=== PATIENT | female | born 1955 | race Caucasian/White ===

== ENCOUNTER → 2018-03-11 09:35 | Outpatient (CLI) | payer BC, SELFPAY ==
[2018-03-11 10:16] LABS: ALB/GLOB Ratio 1.2 RATIO (0.9-2.4); AST(SGOT) 21 U/L (15-37); Alanine Aminotransfer ALT/SGPT 32 U/L (13-56); Albumin, Serum 3.8 g/dL (3.2-5.0); Alkaline Phosphatase 90 U/L (45-117); Anion Gap 8 (5-15); BUN 15 mg/dL (7-18); BUN/Creat Ratio 21.8 RATIO (10-20); Chloride 104 mmol/L (98-107); Cholesterol 164 mg/dL (200); Creatinine, Serum 0.69 mg/dL (0.55-1.02); EST Glomerular Filtration Rate 92 mL/min (>60); Est Glom Filt Rate - Afr Amer 111 mL/min (>60); Globulin 3.1 g/dL (2.2-4.2); Glucose 73 mg/dL (74-106); High Density Lipoprotein 78 mg/dL; Potassium 4.2 mmol/L (3.5-5.1); Protein, Total 6.9 g/dL (6.4-8.2); Sodium Level 141 mmol/L (136-145); Triglycerides 71 mg/dL; Very Low Density Lipoprotein 14 mg/dL (5-40)
== END ==
PROVIDERS: Family Provider Family Medicine; PCP Family Medicine; Referring Provider Family Medicine; Visit Provider Family Medicine
DX: E78.5 Hyperlipidemia, unspecified (principal)
CPT/HCPCS: 80053; 80061

== ENCOUNTER → 2019-02-18 11:09 | Outpatient (CLI) | payer BC, SELFPAY ==
[2019-02-18 10:36] VITALS: BMI 33.0
[2019-02-18 11:18] LABS: Mucous, Urine 0 SEEN /hpf (<or=2+); Squamous Epithelial Cells - UA 0 SEEN /hpf (5-10)
[2019-02-18 12:46] LABS: Color, Urine Yellow (Yellow); Glucose, Dipstick Normal (Normal); Ketone-Dipstick Negative (Negative); Leukocyte Esterase-Dipstick 500 /ul (Negative); Nitrite-Dipstick Negative (Negative); Occult Blood-Urine 10 /ul (Negative); Protein-Dipstick Negative (Negative); Specific Gravity, Urine 1.015 (1.002-1.030); Urine Bilirubin Dipstick Negative (Negative); Urine Clarity Cloudy (Clear); Urine Urobilinogen 1 mg/dl (Normal)
[2019-02-18 13:08] LABS: Bacteria 4+ /hpf (None Seen); Red Blood Cells-Urine 0-5 SEEN /hpf (0-5); White Blood Cells >100 SEEN /hpf (0-5)
== END ==
PROVIDERS: Family Provider Family Medicine; PCP Family Medicine; Visit Provider Nurse Practitioner Family
DX: R30.0 Dysuria (principal)
CPT/HCPCS: 81001; 87086

== ENCOUNTER → 2019-10-15 08:28 | Outpatient (CLI) | payer BC, SELFPAY ==
[2019-07-27 16:27] VITALS: BMI 33.3
[2019-10-15 08:51] LABS: Absolute Lymphocyte Count 1.63 X10^3/uL (0.83-4.51); Absolute Neutrophil Count 3.4 X10^3/uL (2.0-7.7); Basophil# 0.04 X10^3/uL; Basophil% 0.7 % (0-1); Eosinophil# 0.24 X10^3/uL; Eosinophils% 4.2 % (0-5); Hematocrit 39.9 % (37-47); Hemoglobin 12.8 g/dL (12.0-15.0); Lymphocyte # 1.63 X10^3/ul (4.0); Lymphocyte % 28.2 % (19-41); Mean Corp Hgb Conc 32.1 g/dL (32-36); Mean Corpuscular Volume 90.5 fL (81-99); Mean Platelet Vol. 9.6 fl (6.2-12.0); Monocyte# 0.47 X10^3/uL; Monocyte% 8.1 % (0-10); NRBC Flagged by Analyzer 0 % (0-5); Neutrophil # 3.38 X10^3/uL (2.7-7.7); Neutrophil % 58.6 % (47-70); Platelet Count 271 K/mm3 (150-450); RBC Distribution Width SD 46.5 fl (35.1-43.9); Red Blood Count 4.41 M/mm3 (4.2-5.4); White Blood Count 5.8 K/mm3 (4.4-11.0)
--- NOTE | 2019-10-15 08:55 | EKG12_ITS ---
Test Reason : PRE OP Blood Pressure : / mmHG Vent. Rate : 074 BPM Atrial Rate : 074 BPM P-R Int : 160 ms QRS Dur : 078 ms QT Int : 370 ms P-R-T Axes : 029 -13 000 degrees QTc Int : 410 ms Normal sinus rhythm Normal ECG Confirmed by ARSENIO ALFARO, IRINA ([id number]), features editor ALESSIA MURRAY ([id number]) on 10/18/2019 2:38:52 PM Referred By: Maurice Salinas Confirmed By:IRINA CESAR MD
[2019-10-15 09:03] LABS: Prothrombin Time (Protime)PT. 12.7 SECONDS (11.7-14.9)
--- NOTE | 2019-10-15 09:06 | RAD_ITS ---
STUDY: X-RAY CHEST REASON FOR EXAM: Female, 64 years old. PRE-OPERATIVE -- having knee replacement October 31 -- no chest complaints TECHNIQUE: PA and lateral views of the chest. COMPARISON: None. FINDINGS: The lungs are clear and expanded. There is no demonstrated pleural abnormality. Normal size heart. Normal mediastinum and raghav. Normal visualized pulmonary arteries. There is atherosclerotic calcification of the aortic arch with tortuosity. There are diffuse degenerative changes of the visualized thoracic spine. Normal visualized ribs, clavicles, and shoulders. There are surgical clips of left upper abdomen. RAD/Chest PA and Lateral IMPRESSION: No airspace consolidation or pleural effusion. Electronically Signed: Paul Gamboa MD ([facility]) at 14:29 EDT , Service support ,
[2019-10-15 09:09] LABS: ALB/GLOB Ratio 1.2 RATIO (0.9-2.4); AST(SGOT) 60 U/L (15-37); Alanine Aminotransfer ALT/SGPT 85 U/L (13-56); Albumin, Serum 3.5 g/dL (3.2-5.0); Alkaline Phosphatase 129 U/L (45-117); Anion Gap 4 (5-15); BUN 13 mg/dL (7-18); BUN/Creat Ratio 20.3 RATIO (10-20); Calcium,Total 8.8 mg/dL (8.5-10.1); Chloride 105 mmol/L (98-107); Creatinine, Serum 0.64 mg/dL (0.55-1.02); EST Glomerular Filtration Rate 99 mL/min (>60); Est Glom Filt Rate - Afr Amer 120 mL/min (>60); Glucose 84 mg/dL (74-106); Potassium 3.7 mmol/L (3.5-5.1); Protein, Total 6.5 g/dL (6.4-8.2); Sodium Level 139 mmol/L (136-145)
== END ==
PROVIDERS: PCP Family Medicine; Referring Provider Family Medicine; Visit Provider Family Medicine
DX: Z01.818 Encounter for other preprocedural examination (principal); I10 Essential (primary) hypertension; Z87.11 Personal history of peptic ulcer disease
CPT/HCPCS: 36415; 71046; 80053; 85025; 85610; 93005

== ENCOUNTER 2019-10-21 06:16 | Inpatient (IN) | payer BC, SELFPAY ==
[2019-07-27 16:27] VITALS: BMI 33.3
[2019-10-21] VITALS (15 sets, daily range): BP systolic 129–169; BP diastolic 71–98; PULSE 94–119; RESP 15–20; TEMP 36.5–37.2; O2SAT 96–99; BMI 29.2; BMI 28.4; BMI 29.3
--- NOTE | 2019-10-21 06:43 | EKG12_ITS ---
Test Reason : Blood Pressure : / mmHG Vent. Rate : 101 BPM Atrial Rate : 101 BPM P-R Int : 172 ms QRS Dur : 072 ms QT Int : 344 ms P-R-T Axes : 049 016 021 degrees QTc Int : 446 ms Sinus tachycardia Otherwise normal ECG Confirmed by ESTELLE AYERS ([id number]), video news editor ALESSIA MURRAY ([id number]) on 10/24/2019 11:13:36 AM Referred By: EM Confirmed By:ESTELLE AYERS
--- NOTE | 2019-10-21 06:45 | ED.VIS.GEN ---
History of Present Illness Chief Complaint: GI Bleed Informant: Patient Narrative: Patient stated that she got up this morning to use the restroom and had a bowel movement. She stated her stool was darker than normal this morning. She had bright red blood in the bowl and on the toilet paper. She did not have any pain with her bowel movement. She is not having an abdominal pain. No nausea or vomiting. She has a history of a bleeding stomach ulcer in the remote past. However at that time she was having hematemesis. She is not having that now. Her last colonoscopy was 12 years ago. She did home test in the last 5 years for bleeding and was negative. Patient has a history of gastric bypass surgery. She also has a history of a bleeding blood vessel in her abdomen that was cauterized. She saw Dr. Burgess for this. Patient had 1 bloody bowel movement today. She does not feel the urge to defecate currently. Not take iron. The patient also stated that she went to the bathroom in the middle the night and while she was walking back to her bed she had an episode of syncope. She woke up feeling next to her bed with her hands on the bed. She was able to get up in bed and finished her night of rest. She did not injure her head. She denied any chest pain or shortness of breath or other symptoms. She recently stated that she is going to have knee surgery and had outpatient labs that showed elevation in her liver function test and her family doctor is watching these. - Past Medical History (1) Acute blood loss anemia Status: Acute (2) History of basal cell cancer Status: Acute (3) History of pancreatitis Status: Acute (4) History of pneumonia Status: Acute (5) Severe bleeding ulcer of esophagus, stomach or duodenum Status: Acute (6) AAA (abdominal aortic aneurysm) Status: Chronic (7) Bariatric surgery status Status: Chronic (8) GERD (gastroesophageal reflux disease) Status: Chronic (9) Heart murmur Status: Chronic (10) History of bleeding ulcers Status: Chronic (11) Hyperlipemia Status: Chronic (12) Hypertension Status: Chronic (13) Neck pain, chronic Status: Chronic (14) Osteoarthritis Status: Chronic (15) Osteopenia Status: Chronic Past Medical History - Allergies and Home Meds Allergies/Adverse Reactions: Allergies Penicillins [PCN] Allergy (Verified 03/04/20 15:58) Unknown Sulfa (Sulfonamide Antibiotics) Allergy (Verified 07/27/19 15:58) Unknown erythromycin base [Erythromycin Base] Adverse Reaction (Verified 07/27/19 15:58) Unknown rosiglitazone maleate [From Avandia] Adverse Reaction (Verified 07/27/19 15:58) Swelling Primary Care Physician: Maurice Salinas DO [Primary Care Provider] - Prior records reviewed: Yes Past Medical History: - - See problem list Surgical History: - - Gastric bypass surgery history of partial mesh removed with for chronic draining woundVentral hernia repair with mesh chronic draining wounds Lives: With Family Smoking Status: Never smoker Alcohol: None Drugs: None - Family History Maternal Family History: Family History (Last Reviewed 07/27/19 @ 16:[address] Maurice Salinas DO) Mother Hypertension Cancer Hyperlipemia Father Heart disease Hyperlipemia Hypertension Grandfather Hypertension Hyperlipemia Grandmother Hypertension Hyperlipemia Family History: Reports: No pertinent history Review of Systems General: Denies: Chills, Fever, Sweats Eyes: Denies: Visual changes - bilaterally, Diplopia ENT: Denies: Rhinorrhea, Sore throat Cardiovascular: Denies: Chest pain, Palpitations Respiratory: Denies: Dyspnea, Cough, Dyspnea on exertion Gastrointestinal: Reports: Hematochezia. Denies: Abdominal pain, Nausea, Vomiting, Diarrhea, Melena Genitourinary: Denies: Dysuria, Hematuria, Frequency Musculoskeletal: Denies: Back pain, Extremity Pain Skin: Denies: Rash, Wounds Neurological: Denies: Headache, Weakness, Numbness Physical Exam Vital Signs/Narrative: Vital Signs Temp Pulse Resp BP Pulse Ox 10/21/19 06:17 98.9 F 112 H 16 136/90 H 99 General: Well nourished, Well developed, No Acute Distress Head: Normocephalic, Atraumatic Eyes: Perrl, EOMI ENT: Moist mucous membranes, No rhinorrhea Neck: Supple, Nontender Cardiovascular: Regular rhythm, No murmurs, Tachycardia Respiratory: No distress, CTA bilaterally, Chest nontender Abdomen: Soft, Nontender, Nondistended, Normal bowel sounds Rectal: Nontender, - - Gross positive mild blood without hemorrhoid. Negative for: Tenderness Back: Nontender, Normal Inspection Extremities: Nontender, No edema Skin: Normal color, No rash Neurological: Alert, Oriented x3, Cranial nerves II-XII grossly intact, Normal Strength, Normal Sensation Psychological: Normal affect, Normal Mood Diagnostic/Tx/Re-eval - Medical Decision Making Patient given IV fluids and lab work obtained. She is monitored in the department. EKG as well as CT abdomen pelvis obtained. Patient did have one melanotic stool that was liquid and soft upon arrival. Other evaluation will be signed out to the oncoming physician Dr. Pablo. Patient also given IV Protonix ED Disposition - Plan for ED Patient: Referrals: Maurice Salinas DO [Primary Care Provider] -
--- NOTE | 2019-10-21 06:49 | CT_ITS ---
STUDY: CT ABDOMEN AND PELVIS WITHOUT CONTRAST REASON FOR EXAM: Female, 64 years old. weakness, syncope, bloody+ stool. prior chinmay,appy,gastric by-pass RADIATION DOSAGE (If Supplied By Facility): CTDIvol = ( 7.21 ) mGy, DLP = ( 318.76 ) mGycm TECHNIQUE: Transaxial images were obtained from the dome of the diaphragm to the symphysis pubis without oral contrast, and without intravenous contrast. Sagittal and coronal images were reconstructed. Individualized dose optimization techniques were used for this CT. COMPARISON: None. FINDINGS: The visualized lung bases are unremarkable. The visualized portions of the heart are within normal limits. Normal liver. The gallbladder surgically absent. Normal spleen. Normal pancreas. Normal bilateral adrenal glands. Normal right kidney. Small calcifications of the inferior left kidney measuring up to 5 mm. No hydronephrosis. Operative changes of the stomach and small bowel compatible with gastric bypass surgery. No dilated loops of small bowel or obvious bowel wall thickening. There is fecal residue in the colon including the rectal vault. No colon wall thickening. No pericolonic stranding. There are surgical clips in the region of the appendix consistent with a prior appendectomy. There is diffuse atherosclerotic calcification of the abdominal aorta, without a demonstrated aneurysm. Normal inferior vena cava. Normal retroperitoneum. Normal urinary bladder. Normal abdominal wall. Multilevel facet arthropathy and spondylosis of the thoracolumbar spine. CT/Abdomen/Pelvis without Cont IMPRESSION: 1. Left nephrolithiasis without hydronephrosis. Electronically Signed: Paul Gamboa MD ([facility]) at 8:03 EDT , Service support ,
[2019-10-21 07:04] LABS: Absolute Lymphocyte Count 1.63 X10^3/uL (0.83-4.51); Absolute Neutrophil Count 5.1 X10^3/uL (2.0-7.7); Basophil# 0.03 X10^3/uL; Basophil% 0.4 % (0-1); Eosinophil# 0.03 X10^3/uL; Eosinophils% 0.4 % (0-5); Hematocrit 29.8 % (37-47); Hemoglobin 9.7 g/dL (12.0-15.0); Lymphocyte # 1.63 X10^3/ul (4.0); Lymphocyte % 21.8 % (19-41); Mean Corp Hgb Conc 32.6 g/dL (32-36); Mean Platelet Vol. 10.3 fl (6.2-12.0); Monocyte# 0.63 X10^3/uL; Monocyte% 8.4 % (0-10); NRBC Flagged by Analyzer 0 % (0-5); Neutrophil # 5.12 X10^3/uL (2.7-7.7); Neutrophil % 68.3 % (47-70); Platelet Count 263 K/mm3 (150-450); RBC Distribution Width CV 13.7 % (11.6-14.6); RBC Distribution Width SD 44.8 fl (35.1-43.9); Red Blood Count 3.35 M/mm3 (4.2-5.4); White Blood Count 7.5 K/mm3 (4.4-11.0)
[2019-10-21] MEDS: 0.9% Normal Saline 1,000 ML 1000 ML IV (07:15)
[2019-10-21 07:34] LABS: ALB/GLOB Ratio 1.2 RATIO (0.9-2.4); AST(SGOT) 21 U/L (15-37); Alanine Aminotransfer ALT/SGPT 52 U/L (13-56); Albumin, Serum 3.2 g/dL (3.2-5.0); Alkaline Phosphatase 82 U/L (45-117); Anion Gap 4 (5-15); BUN 40 mg/dL (7-18); BUN/Creat Ratio 57.9 RATIO (10-20); Calcium,Total 8.4 mg/dL (8.5-10.1); Chloride 106 mmol/L (98-107); Creatinine, Serum 0.69 mg/dL (0.55-1.02); EST Glomerular Filtration Rate 91 mL/min (>60); Est Glom Filt Rate - Afr Amer 110 mL/min (>60); Estimated Creatinine Clearance 65.15 ml/min; Globulin 2.7 g/dL (2.2-4.2); Glucose 145 mg/dL (74-106); Protein, Total 5.9 g/dL (6.4-8.2); Sodium Level 139 mmol/L (136-145)
[2019-10-21 08:17] LABS: International Normalized Ratio 1.1; Partial Thromboplast Time 24.3 Seconds (24.1-36.2); Prothrombin Time (Protime)PT. 13.4 SECONDS (11.7-14.9)
--- NOTE | 2019-10-21 10:58 | PCM.HP.STD ---
Problem List (1) Neck pain, chronic Status: Chronic (2) History of pancreatitis Status: Chronic (3) Heart murmur Status: Chronic (4) Hyperlipemia Status: Chronic (5) Hypertension Status: Chronic (6) History of pneumonia Status: Chronic (7) History of basal cell cancer Status: Chronic (8) Osteopenia Status: Chronic (9) Osteoarthritis Status: Chronic (10) Severe bleeding ulcer of esophagus, stomach or duodenum Status: Acute (11) Acute blood loss anemia Status: Acute (12) History of bleeding ulcers Status: Chronic (13) Bariatric surgery status Status: Chronic (14) GERD (gastroesophageal reflux disease) Status: Chronic (15) AAA (abdominal aortic aneurysm) Status: Chronic History of Present Illness Date of Admission: 10/21/19 Chief Complaint: melena The patient is a 64 year old F awoke with AM went to the bathroom, when she went back she went out. She awoke on her knees on the floor and arms on the bed. Afterwards, she went back to the bathroom and had melena. She had a total of 5 bouts of melena with streaks of blood. No hematemesis. Similar to when she had a bleeding ulcer before, but no hematemesis this time. She feels dizzy when she stands up, but currently feels ok. No abdominal pain. Dr. Merritt of general surgery was contacted in the ED and will see the patient in consultation. [] Past Medical History Past Medical History (Chronic Problems): Chronic Problems (Last Reviewed 07/27/19 @ 16:[address] Maurice Salinas DO) Neck pain, chronic (Chronic) History of pancreatitis (Chronic) Heart murmur (Chronic) Hyperlipemia (Chronic) Hypertension (Chronic) History of pneumonia (Chronic) History of basal cell cancer (Chronic) Osteopenia (Chronic) Osteoarthritis (Chronic) History of bleeding ulcers (Chronic) Bariatric surgery status (Chronic) GERD (gastroesophageal reflux disease) (Chronic) AAA (abdominal aortic aneurysm) (Chronic) Medical History: Medical History (Last Reviewed 10/21/19 @ 11:[address] Alex Junior DO) History of pancreatitis (Chronic) Z87.19 Heart murmur (Chronic) R01.1 Hyperlipemia (Chronic) E78.5 Hypertension (Chronic) I10 History of pneumonia (Chronic) Z87.01 History of basal cell cancer (Chronic) Z85.828 Osteopenia (Chronic) M85.80 Osteoarthritis (Chronic) M19.90 Allergies Penicillins [PCN] Allergy (Verified 07/27/19 15:58) Unknown Sulfa (Sulfonamide Antibiotics) Allergy (Verified 07/27/19 15:58) Unknown erythromycin base [Erythromycin Base] Adverse Reaction (Verified 07/27/19 15:58) Unknown rosiglitazone maleate [From Avandia] Adverse Reaction (Verified 07/27/19 15:58) Swelling Home Medications: Ambulatory Orders Medication Instructions Recorded citalopram 40 mg tablet See Rx Instructions .ROUTE 01/25/19 .COMPLEX #90 tablet bupropion HCl 150 mg 24 hr tablet, 150 mg PO QHS #90 tab 07/27/19 extended release simvastatin 10 mg tablet 10 mg PO QHS #90 tab 07/27/19 hydrocodone 5 mg-acetaminophen 325 1 tab PO Q6H PRN #90 tab 09/08/19 mg tablet zolpidem 12.5 mg tablet,extended 12.5 mg PO QHS PRN PRN #30 tab 10/05/19 release,multiphase Hydrocortisone 1 applic TOPICAL QHS PRN 10/21/19 Surgical History: Surgical History (Last Reviewed 10/21/19 @ 11:[address] Alex Junior DO) History of appendectomy Z90.49 History of bilateral knee replacement Z96.653 History of cholecystectomy Z90.49 History of gastric bypass Z98.84 History of intestinal surgery Z98.890 Surgical History: - - Gastric bypass surgery history of partial mesh removed with for chronic draining woundVentral hernia repair with mesh chronic draining wounds Psychiatric History: Anxiety Lives: With Family Smoking Status: Never smoker Alcohol: None Drugs: None - *Family History Maternal Family History: Family History (Last Reviewed 10/21/19 @ 11:[address] Alex Junior DO) Mother Hypertension Cancer Hyperlipemia Father Heart disease Hyperlipemia Hypertension Grandfather Hypertension Hyperlipemia Grandmother Hypertension Hyperlipemia History Items: No pertinent history Review of Systems Constitutional: Reports: Weakness. Denies: Anorexia, Fever, Night Sweats Eyes: Denies: Blurred vision, Double vision HEENT: Denies: Head Aches, Sinus Congestion, Sinus Drainage Cardiovascular: Denies: Chest Pain, Palpitations Respiratory: Denies: Cough, Shortness of breath at rest, Sputum production Gastrointestinal: Reports: Melena. Denies: Abdominal Pain, Hematochezia, Nausea, Vomiting Genitourinary: Denies: Dysuria Musculoskeletal: Denies: Joint Pain, Joint Tenderness Skin: Denies: Dryness, Jaundice Neurological: Denies: Numbness, Tingling, Focal weakness Hematologic/ Lymphatic: Denies: Easy Bruising, Easy Bleeding, Hx of blood clot Comment: All review of systems were negative except as mentioned above in the history of present illness and the other review of systems. VTE Information - Inpt Only VTE Present on Admission: No VTE Mechan Device Prophylaxis: SCD's VTE Pharm Prophylaxis ordered?: No Reason prophylaxis not ordered:: Medical Contraindication - Physical Exam Vitals/I&O's: Vital Signs Temp Pulse Resp BP Pulse Ox 36.6 C 105 H 20 H 136/98 H 99 10/21/19 10:09 10/21/19 10:33 10/21/19 10:09 10/21/19 10:09 10/21/19 10:09 Oxygen Delivery Method Room Air Weight: 72.6 kg Body Mass Index (BMI) 29.2 Intake and Output for Last 24 Hours 10/19/19 10/20/19 10/21/19 23:59 23:59 23:59 Intake Total 1035 / 1035 Balance 1035 / 1035 General: Alert, Cooperative, No apparent distress HEENT: Atraumatic, Normocephalic, - - no icterus Oral: Moist Mucosa, No Gingival or Mucosal Lesions/ Ulcerations Neck: No Nodes, Thyroid Normal Size and Texture Lungs: Clear to auscultation, Normal air movement, No rhonchi, No wheeze, No rales Cardiovascular: Regular rate, Regular Rhythm, Normal S1, Normal S2, No murmurs Abdomen: Bowel Sounds Present, Soft, Non Tender, Non-Distended, No Hepato-splenomegaly Extremities: No edema, No Calf Tenderness Skin: No rashes, No breakdown Musculoskeletal: No Tenderness to Palpation of Joints or Extremities, No Muscle Wasting Neurological: Deep Tendon Reflexes 2+/4 and Symmetrical, - - no clonsu Psych/Mental Status: Normal Affect, Appropriate Laboratory Results 10/21/19 06:50: WBC 7.5, RBC 3.35 L, Hgb 9.7 L, Hct 29.8 L, MCV 89.0, MCH 29.0, MCHC 32.6, RDW Std Deviation 44.8 H, RDW Coeff of [place] 13.7, Plt Count 263, MPV 10.3, Immature Gran % (Auto) 0.700, Neut % (Auto) 68.3, Lymph % (Auto) 21.8, [place] % (Auto) 8.4, Eos % (Auto) 0.4, Baso % (Auto) 0.4, Absolute Neuts (auto) 5.1, Absolute Lymphs (auto) 1.63, Nucleated RBC % 0 10/21/19 07:10: Sodium 139, Potassium 4.0, Chloride 106, Carbon Dioxide 29.0, Anion Gap 4 L, BUN 40 H, Creatinine 0.69, Estim Creat Clear Calc 65.15, Est GFR (MDRD) Af Amer 110, Est GFR (MDRD) Non-Af 91, BUN/Creatinine Ratio 57.9 H, Glucose 145 H, Calcium 8.4 L, Total Bilirubin 0.20, AST 21, ALT 52, Alkaline Phosphatase 82, Total Protein 5.9 L, Albumin 3.2, Globulin 2.7, Albumin/Globulin Ratio 1.2 10/21/19 07:10: PT 13.4, INR 1.1, APTT 24.3 10/21/19 07:10: Blood Type O POSITIVE, Antibody Screen NEGATIVE Assessment/Plan All Active Problems (Last Reviewed 07/27/19 @ 16:[address] Maurice Salinas, DO) Severe bleeding ulcer of esophagus, stomach or duodenum (Acute) Acute blood loss anemia (Acute) 1. GI bleed. suspect upper given history of PUD. Takes NSAIDs rarely. Received PPI IV and will continue. General surgery on consult for EGD. 2. Syncope: 2/2 ABLA. IVF. Monitor. 3. ABLA: 2/2 GI bleed. Monitor h/h. No need to transfuse at this time. 4. VTE prophylaxis: SCDs, chemical prophylaxis contraindicated. Inpatient E&M: 46836 Init Hosp L3
[2019-10-21] MEDS: Lactated Ringers 1,000 ML 150 ML IV ×2 (11:12→17:35)
--- NOTE | 2019-10-21 11:45 | NURSING ---
Report called to HARMONY Hedrick in [facility].
--- NOTE | 2019-10-21 12:58 | OP.CCLET_ITS ---
10/21/2019 Maurice Salinas Re : Upper GI endoscopy procedure for Aby Rabago Dear Dr. Salinas This procedure was performed on Monday, October 21, 2019. My impressions and recommendations are as follows: Impressions : - Normal anastomosis. - Non-bleeding gastric ulcer with no stigmata of bleeding. - Normal esophagus. - No specimens collected. Recommendations : - [facility]. - Resume regular diet. - Continue present medications. My findings are described in the full procedure note, which is enclosed. If I can be of further assistance, please feel free to contact me at Doctor phone number(s): , Work: . Sincerely, MD Diamante Perez MD 10/21/2019 12:57:52 PM This report has been signed electronically.
--- NOTE | 2019-10-21 12:58 | OP.EGD_ITS ---
Patient Name: Aby Rabago Procedure Date: 10/21/2019 11:52 AM Date of : 1955 Age: 64 Procedure: Upper GI endoscopy Indications: Iron deficiency anemia Providers: Diamante Merritt MD Medicines: See the Anesthesia note for documentation of the administered medications Patient Profile: Refer to note in patient chart for documentation of history and physical. Complications: No immediate complications. Procedure: Pre-Anesthesia Assessment: - Prior to the procedure, a History and Physical was performed, and patient medications and allergies were reviewed. The patient is competent. The risks and benefits of the procedure and the sedation options and risks were discussed with the patient. All questions were answered and informed consent was obtained. Patient identification and proposed procedure were verified by the physician in the pre-procedure area. Mental Status Examination: alert and oriented. Airway Examination: normal oropharyngeal airway and neck mobility. Respiratory Examination: clear to auscultation. CV Examination: normal. Prophylactic Antibiotics: The patient does not require prophylactic antibiotics. Prior Anticoagulants: The patient has taken no previous anticoagulant or antiplatelet agents. ASA Grade Assessment: II - A patient with mild systemic disease. After reviewing the risks and benefits, the patient was deemed in satisfactory condition to undergo the procedure. The anesthesia plan was to use deep sedation / analgesia. Immediately prior to administration of medications, the patient was re-assessed for adequacy to receive sedatives. The heart rate, respiratory rate, oxygen saturations, blood pressure, adequacy of pulmonary ventilation, and response to care were monitored throughout the procedure. The physical status of the patient was re-assessed after the procedure. After obtaining informed consent, the endoscope was passed under direct vision. Throughout the procedure, the patient's blood pressure, pulse, and oxygen saturations were monitored continuously. The gastroscope was introduced through the mouth, and advanced to the second part of duodenum. The upper GI endoscopy was accomplished without difficulty. The patient tolerated the procedure well. Scope In: 12:44:42 PM Scope Out: 12:47:24 PM Total Procedure Duration Time 0 hours 2 minutes 42 seconds Findings: The anastomosis was normal. One non-bleeding superficial gastric ulcer with no stigmata of bleeding was found at the anastomosis. The lesion was 1 mm in largest dimension. The examined esophagus was normal. Impression: - Normal anastomosis. - Non-bleeding gastric ulcer with no stigmata of bleeding. - Normal esophagus. - No specimens collected. Recommendation: - [facility]. - Resume regular diet. - Continue present medications. Procedure Code(s): --- Professional --- 19069, Esophagogastroduodenoscopy, flexible, transoral; diagnostic, including collection of specimen(s) by brushing or washing, when performed (separate procedure) Diagnosis Code(s): --- Professional --- K25.9, Gastric ulcer, unspecified as acute or chronic, without hemorrhage or perforation D50.9, Iron deficiency anemia, unspecified CPT copyright 2017 [employer] [place] [employer]. All rights reserved. The codes documented in this report are preliminary and upon template reproduction technician review may be revised to meet current compliance requirements. MD Diamante Perez MD 10/21/2019 12:57:52 PM This report has been signed electronically. Number of Addenda: 0 Note Initiated On: 10/21/2019 11:52 AM
[2019-10-21 14:10] LABS: Hematocrit 27.7 % (37-47); Hemoglobin 8.8 g/dL (12.0-15.0)
--- NOTE | 2019-10-21 14:32 | CASEMGMT ---
HARMONY KERN assessment: Face to Face with patient for initial transition planning/care coordination assessment. HARMONY KERN introduced self and role at [facility], pt voices understanding and consents to assessment at this time. Pt is sitting up in chair in no distress at this time. Pt is A/Ox4 at this time and answers all questions appropriately at this time. Care providers, pharmacy, and demographics verified/updated at this time. Presentation: Blood in stool, weakness, syncopal Admitting dx: upper GI bleed PCP: Brad Specialists: Pt states no current specialists. Preferred Pharmacy: [facility] Insurance: [place] Prescription Benefit: [place] Living Will/HPOA: Pt states has LW/HPOA and is aware that they are not on file at [facility] at this time. Pt states that her daughter, Sissy Day, is HPOA. LNOK: Sissy Day, daughter/HPOA; Bryce Dial, daughter Living Arrangements: Pt states lives alone in 1 story condo and states no concerns at home at this time. Pt states that her daughter will be staying with her this weekend once discharged. Pt states is independent with ADL's. Transportation: Pt states drives self and states no transportation concerns at this time. DME/HHC: Pt states has a walker in preparation for knee surgery. Pt states no need for any further DME at this time. Pt states has had HHC in the past but cannot remember name of company and states no hx of SNF in the past. Pt states no concerns with going home at time of discharge. 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 Pt states does not smoke and drinks ETOH occasionally. Pt states no further concerns/needs at this time. CM to follow for any further discharge planning/needs. Advised pt to ask for CM if any further questions/concerns/needs arise, voices understanding. Pt Goal: Home Plan[place] HARMONY KERN
--- NOTE | 2019-10-21 15:09 | PCM.PN.BLA ---
Progress Note EGD done - small marginal ulcer noted near anastomosis, but not actively bleeding, no blood flecks or clots noted, widely patent anastomosis I would recommend colonoscopy, but this can be done as an outpatient. She can be discharged as per hospitalist discretion. I will contact patient on Thursday, to set her up for colonoscopy as on outpatient. STROKE Vital Signs/Narrative: Vital Signs Temp Pulse Resp BP BP Pulse Ox 10/21/19 13:40 97.7 F L 94 15 144/84 H 97 10/21/19 13:11 98.6 F 101 H 18 169/85 H 98 10/21/19 13:05 100 18 150/93 H 98 10/21/19 13:00 100 18 163/75 H 97 10/21/19 12:55 98.6 F 107 H 18 152/76 H 97
[2019-10-21 19:17] LABS: Hematocrit 25.2 % (37-47)
[2019-10-21] MEDS: LORazepam 0.5 MG Tablet PO (19:49)
[2019-10-21] MEDS: Zolpidem Tartrate 5 MG Tablet PO (22:50)
[2019-10-22] VITALS (12 sets, daily range): BP systolic 114–152; BP diastolic 59–86; PULSE 72–97; RESP 13–18; TEMP 36.6–36.9; O2SAT 95–100
[2019-10-22] MEDS: Lactated Ringers 1,000 ML 150 ML IV (00:25)
[2019-10-22 01:14] LABS: Hematocrit 21.7 % (37-47); Hemoglobin 7.1 g/dL (12.0-15.0)
[2019-10-22] MEDS: 0.9% Saline Lock 10 ML Syringe IV (04:20)
[2019-10-22 07:56] LABS: Absolute Lymphocyte Count 2.42 X10^3/uL (0.83-4.51); Basophil# 0.04 X10^3/uL; Basophil% 0.6 % (0-1); Eosinophil# 0.13 X10^3/uL; Eosinophils% 1.8 % (0-5); Hematocrit 32.7 % (37-47); Hemoglobin 10.5 g/dL (12.0-15.0); Lymphocyte # 2.42 X10^3/ul (4.0); Lymphocyte % 33.7 % (19-41); Mean Corp Hgb Conc 32.1 g/dL (32-36); Mean Corpuscular Volume 93.4 fL (81-99); Mean Platelet Vol. 9.9 fl (6.2-12.0); Monocyte# 0.54 X10^3/uL; Monocyte% 7.5 % (0-10); NRBC Flagged by Analyzer 0 % (0-5); Neutrophil # 3.97 X10^3/uL (2.7-7.7); Neutrophil % 55.3 % (47-70); Platelet Count 214 K/mm3 (150-450); RBC Distribution Width CV 14.3 % (11.6-14.6); RBC Distribution Width SD 47.8 fl (35.1-43.9); White Blood Count 7.2 K/mm3 (4.4-11.0)
[2019-10-22 08:13] LABS: Anion Gap 5 (5-15); BUN 12 mg/dL (7-18); BUN/Creat Ratio 18.8 RATIO (10-20); Calcium,Total 8.6 mg/dL (8.5-10.1); Chloride 109 mmol/L (98-107); Creatinine, Serum 0.64 mg/dL (0.55-1.02); EST Glomerular Filtration Rate 100 mL/min (>60); Est Glom Filt Rate - Afr Amer 120 mL/min (>60); Estimated Creatinine Clearance 70.24 ml/min; Glucose 94 mg/dL (74-106); Potassium 3.6 mmol/L (3.5-5.1); Sodium Level 143 mmol/L (136-145)
[2019-10-22 12:09] LABS: Hematocrit 30.7 % (37-47); Hemoglobin 10.2 g/dL (12.0-15.0)
--- NOTE | 2019-10-22 12:53 | PCM.DC ---
You will use the following diet at home:: No restrictions Your food should be the consistency of: Regular Discharge Activity: Return to Normal Activity Call your doctor if you observe: Dizziness, Fainting spells, - - dark tarry stools. blood in stools. Allergies/Adverse Reactions: Allergies Penicillins [PCN] Allergy (Verified 07/27/19 15:58) Unknown Sulfa (Sulfonamide Antibiotics) Allergy (Verified 07/27/19 15:58) Unknown erythromycin base [Erythromycin Base] Adverse Reaction (Verified 07/27/19 15:58) Unknown rosiglitazone maleate [From Avandia] Adverse Reaction (Verified 07/27/19 15:58) Swelling Medications to take at Discharge citalopram 40 mg tablet See Rx Instructions .ROUTE .COMPLEX #90 tablet 01/25/19 bupropion HCl 150 mg 24 hr tablet, extended release 150 mg PO QHS #90 tab 07/27/19 simvastatin 10 mg tablet 10 mg PO QHS #90 tab 07/27/19 hydrocodone 5 mg-acetaminophen 325 mg tablet 1 tab PO Q6H PRN #90 tab 09/08/19 zolpidem 12.5 mg tablet,extended release,multiphase 12.5 mg PO QHS PRN PRN #30 tab 10/05/19 Hydrocortisone 1 applic TOPICAL QHS PRN 10/21/19 Pantoprazole Sodium [Protonix] 40 mg PO BID #60 tab 10/22/19 The following prescriptions were given: Pantoprazole Sodium [Protonix] 40 mg PO BID #60 tab Transmission Status: Pending to [facility]/pharmacy #[id number] Primary Care Physician: Maurice Salinas DO [Primary Care Provider] - Within 2 Weeks Test Results: Test results from this visit will be discussed in further detail at your follow-up appointment, if applicable. Please Follow Up With: Diamante Merritt MD When: 2-4 weeks Proposed Discharge Date: 10/22/19
--- NOTE | 2019-10-22 12:54 | DS.PCM_ITS ---
Discharge Date and Diagnosis Date of Admission: 10/21/19 Date of Discharge: 10/22/19 - Primary Discharge Diagnosis Acute Problems: Upper GI bleed Acute blood loss anemia PUD - Secondary Discharge Diagnosis Chronic Problems: Chronic Problems (Last Reviewed 10/21/19 @ 11:[address] Alxe Junior, DO) Neck pain, chronic (Chronic) History of pancreatitis (Chronic) Heart murmur (Chronic) Hyperlipemia (Chronic) Hypertension (Chronic) History of pneumonia (Chronic) History of basal cell cancer (Chronic) Osteopenia (Chronic) Osteoarthritis (Chronic) History of bleeding ulcers (Chronic) Bariatric surgery status (Chronic) GERD (gastroesophageal reflux disease) (Chronic) AAA (abdominal aortic aneurysm) (Chronic) Hospital Course and Treatment Diamante Merritt, general surgery Operations: None Procedures: EGD Summary of Care Provided: The patient is a 64 year old F presents with melena. Patient had a drop in her hemoglobin of roughly 4g. Patient was seen in consultation by Dr. Merritt who performed the EGD that showed nonbleeding gastric ulcers. Patient was monitored and did require transfusion of 2 units packed red blood cells. Patient's hemoglobin is remained stable and her melena has since resolved. Patient will follow-up with Dr. Merritt as outpatient for eventual colonoscopy. Patient states that she takes NSAIDs sparingly. Patient advised to discontinue those altogether. Patient is to have a orthopedic surgery on October 31. It is my recommendation for VTE prophylaxis that patient not be put on aspirin but rather novel anticoagulant such as apixaban. [] - Physical Exam Vitals/I&O's: Vital Signs Temp Pulse Resp BP Pulse Ox 36.8 C 97 18 127/86 H 98 10/22/19 11:00 10/22/19 11:00 10/22/19 11:00 10/22/19 11:00 10/22/19 11:00 Oxygen Delivery Method Room Air Weight: 70.5 kg Body Mass Index (BMI) 28.4 Intake and Output for Last 24 Hours 10/20/19 10/21/19 10/22/19 23:59 23:59 23:59 Intake Total 2505 / 2505 3322.5 / 3322.5 Output Total 3 / 3 Balance 2502 / 2502 3322.5 / 3322.5 General: Alert, Cooperative, No apparent distress HEENT: Atraumatic, Normocephalic Oral: Moist Mucosa, No Gingival or Mucosal Lesions/ Ulcerations Neck: No Nodes, Thyroid Normal Size and Texture Lungs: Clear to auscultation, Normal air movement, No rhonchi, No wheeze Cardiovascular: Regular rate, Regular Rhythm, Normal S1, Normal S2 Abdomen: Bowel Sounds Present, Soft, Non Tender, Non-Distended, No Hepato- splenomegaly Extremities: No edema, No Calf Tenderness Skin: No rashes, No breakdown Psych/Mental Status: Normal Affect, Appropriate Laboratory Results 10/21/19 07:10: Crossmatch See Detail 10/21/19 14:02: Hgb 8.8 L, Hct 27.7 L 10/21/19 19:05: Hgb 8.0 L, Hct 25.2 L 10/22/19 01:07: Hgb 7.1 L, Hct 21.7 L 10/22/19 07:40: WBC 7.2, RBC 3.50 L, Hgb 10.5 L, Hct 32.7 L, MCV 93.4, MCH 30.0, MCHC 32.1, RDW Std Deviation 47.8 H, RDW Coeff of [place] 14.3, Plt Count 214, MPV 9.9, Immature Gran % (Auto) 1.100 H, Neut % (Auto) 55.3, Lymph % (Auto) 33.7, [place] % (Auto) 7.5, Eos % (Auto) 1.8, Baso % (Auto) 0.6, Absolute Neuts (auto) 4.0, Absolute Lymphs (auto) 2.42, Nucleated RBC % 0 10/22/19 07:40: Sodium 143, Potassium 3.6, Chloride 109 H, Carbon Dioxide 29.0, Anion Gap 5, BUN 12, Creatinine 0.64, Estim Creat Clear Calc 70.24, Est GFR (MDRD) Af Amer 120, Est GFR (MDRD) Non-Af 100, BUN/Creatinine Ratio 18.8, Glucose 94, Calcium 8.6 10/22/19 12:00: Hgb 10.2 L, Hct 30.7 L Current Medications Acetaminophen (Tylenol) 650 mg RECTAL Q4H PRN PRN PRN Reason: Pain Score 1-10/Temp > 100.7 F Dextrose (D50w Syringe) 0 gm IV X1 PRN; Protocol PRN Reason: Hypoglycemia Glucagon () 1 mg IM .X1 PRN PRN Reason: Hypoglycemia Hydrocortisone (Hytone) 1 applic TOPICAL QHS PRN PRN Reason: ITCHING Lactated Ringer's () 1,000 mls @ 150 mls/hr IV .Q6H40M NATHANAEL Last Infusion: 10/22/19 09:20 Dose: 150 mls/hr Documented by: Pantoprazole Sodium 40 mg/ (Sodium Chloride) 110 mls @ 330 mls/hr IV Q12 NATHANAEL Last Infusion: 10/22/19 09:20 Dose: Infused Documented by: Lorazepam (Ativan) 0.5 mg PO Q12H PRN PRN PRN Reason: ANXIETY Last Admin: 10/21/19 19:49 Dose: 0.5 mg Documented by: Nutritional Formula (Lactose Free) (Ensure Enlive) 120 ml PO 4X/DAY NATHANAEL Last Admin: 10/22/19 08:53 Dose: 120 ml Documented by: Ondansetron HCl (Zofran) 4 mg IV Q8H PRN PRN PRN Reason: NAUSEA/VOMITING Sodium Chloride () 10 - 40 ml IV UD PRN PRN Reason: SALINE FLUSH Last Admin: 10/22/19 04:20 Dose: 20 ml Documented by: Zolpidem Tartrate (Ambien (Generic)) 5 mg PO QHS PRN PRN PRN Reason: SLEEP Last Admin: 10/21/19 22:50 Dose: 5 mg Documented by: Discharge Diet: No Restrictions Discharge Activity: Return to Normal Activity Call your doctor if you observe: Dizziness, Fainting spells, - - dark tarry stools. blood in stools. Home Medications: Medications to take at Discharge citalopram 40 mg tablet See Rx Instructions .ROUTE .COMPLEX #90 tablet 01/25/19 bupropion HCl 150 mg 24 hr tablet, extended release 150 mg PO QHS #90 tab 07/27/19 simvastatin 10 mg tablet 10 mg PO QHS #90 tab 07/27/19 hydrocodone 5 mg-acetaminophen 325 mg tablet 1 tab PO Q6H PRN #90 tab 09/08/19 zolpidem 12.5 mg tablet,extended release,multiphase 12.5 mg PO QHS PRN PRN #30 tab 10/05/19 Hydrocortisone 1 applic TOPICAL QHS PRN 10/21/19 Pantoprazole Sodium [Protonix] 40 mg PO BID #60 tab 10/22/19 Following Prescrptions Were Given to Patient: Pantoprazole Sodium [Protonix] 40 mg PO BID #60 tab Transmission Status: Pending to [facility]/pharmacy #[id number] Primary Care Physician: Maurice Salinas DO [Primary Care Provider] - Within 2 Weeks Please Follow Up With: Diamante Merritt MD When: 2-4 weeks Disposition: Home Minutes spent on discharge:: 32 Patient Condition:: Good Medical Necessity - Tobacco Use Smoking Status: Never smoker Meaningful Use Info Meaningful Use Diagnoses (Choose all that apply): None applicable Inpatient E&M: 29388 Disch Hosp
== END 2019-10-22 13:43 | disposition home or self-care (01) | DRG 812 ==
LOC: ED 07:59 → PCU 11:39
PROVIDERS: Surgery; Emergency Provider Emergency Medicine; PCP Family Medicine
PROC: 0DJ08ZZ Inspection of Upper Intestinal Tract, Via Natural or Artificial Opening Endoscopic (ICD-10-PCS; CPT 43235; principal; 2019-10-21 12:25)
DX: D62 Acute posthemorrhagic anemia (principal); D50.9 Iron deficiency anemia, unspecified; N20.0 Calculus of kidney; K25.9 Gastric ulcer, unspecified as acute or chronic, without hemorrhage or perforation; I71.4 Abdominal aortic aneurysm, without rupture; K21.9 Gastro-esophageal reflux disease without esophagitis; R01.1 Cardiac murmur, unspecified; E78.5 Hyperlipidemia, unspecified; I10 Essential (primary) hypertension; M85.80 Other specified disorders of bone density and structure, unspecified site; M19.90 Unspecified osteoarthritis, unspecified site; Z98.84 Bariatric surgery status; Z85.828 Personal history of other malignant neoplasm of skin; Z87.01 Personal history of pneumonia (recurrent); Z82.49 Family history of ischemic heart disease and other diseases of the circulatory system; Z87.11 Personal history of peptic ulcer disease; Z87.19 Personal history of other diseases of the digestive system; Z90.49 Acquired absence of other specified parts of digestive tract; Z96.653 Presence of artificial knee joint, bilateral
CPT/HCPCS: 36415; 74176; 80048; 80053; 85014; 85018; 85025; 85610; 85730; 86850; 86900; 86901; 86920; 93005; 97802; 99285; J7030; J7120; P9016; A4216; J3490

== ENCOUNTER → 2019-10-25 08:50 | Outpatient (CLI) | payer BC, SELFPAY ==
[2019-10-25 08:26] VITALS: BMI 28.4
[2019-10-25 12:20] LABS: Absolute Neutrophil Count 4.4 X10^3/uL (2.0-7.7); Basophil# 0.03 X10^3/uL; Basophil% 0.5 % (0-1); Eosinophil# 0.08 X10^3/uL; Eosinophils% 1.4 % (0-5); Hematocrit 33.5 % (37-47); Hemoglobin 10.8 g/dL (12.0-15.0); Lymphocyte % 16.9 % (19-41); Mean Corp Hgb Conc 32.2 g/dL (32-36); Mean Corpuscular Hgb 30.3 pg (27.0-32.0); Mean Corpuscular Volume 93.8 fL (81-99); Mean Platelet Vol. 10.6 fl (6.2-12.0); Monocyte% 6.8 % (0-10); NRBC Flagged by Analyzer 0 % (0-5); Neutrophil # 4.39 X10^3/uL (2.7-7.7); Neutrophil % 74.1 % (47-70); Platelet Count 295 K/mm3 (150-450); RBC Distribution Width CV 14.8 % (11.6-14.6); RBC Distribution Width SD 49.4 fl (35.1-43.9); Red Blood Count 3.57 M/mm3 (4.2-5.4); White Blood Count 5.9 K/mm3 (4.4-11.0)
[2019-10-25 12:42] LABS: AST(SGOT) 20 U/L (15-37); Alanine Aminotransfer ALT/SGPT 50 U/L (13-56); Albumin, Serum 3.6 g/dL (3.2-5.0); Alkaline Phosphatase 89 U/L (45-117); Bilirubin, Direct 0.17 mg/dL (0.00-0.30); Protein, Total 6.6 g/dL (6.4-8.2)
[2019-10-26 05:07] LABS: HEPATITIS B SURFACE AG Negative (Negative); Hepatitis A AB, Total Negative (Negative); Hepatitis A IgM Antibody Negative (Negative); Hepatitis B Core AB IgM Negative (Negative); Hepatitis B Core Ab Total Negative (Negative); Hepatitis C Ab <0.1 s/co ratio (0.0-0.9)
[2019-10-26 09:40] LABS: Hep B Surface Antibodies Reactive (.)
== END ==
PROVIDERS: PCP Family Medicine; Referring Provider Family Medicine; Visit Provider Family Medicine
DX: R74.8 Abnormal levels of other serum enzymes (principal); D62 Acute posthemorrhagic anemia
CPT/HCPCS: 36415; 80076; 85025; 86704; 86705; 86706; 86708; 86709; 86803; 87340

== ENCOUNTER → 2019-12-10 09:34 | Outpatient (CLI) | payer BC, SELFPAY ==
[2019-10-25 08:26] VITALS: BMI 28.4
[2019-12-10 10:21] LABS: Absolute Lymphocyte Count 1.41 X10^3/uL (0.83-4.51); Absolute Neutrophil Count 5.2 X10^3/uL (2.0-7.7); Basophil# 0.04 X10^3/uL; Basophil% 0.5 % (0-1); Eosinophil# 0.26 X10^3/uL; Eosinophils% 3.5 % (0-5); Hematocrit 37.7 % (37-47); Hemoglobin 11.9 g/dL (12.0-15.0); Lymphocyte # 1.41 X10^3/ul (4.0); Lymphocyte % 18.9 % (19-41); Mean Corp Hgb Conc 31.6 g/dL (32-36); Mean Corpuscular Hgb 28.5 pg (27.0-32.0); Mean Corpuscular Volume 90.2 fL (81-99); Mean Platelet Vol. 9.7 fl (6.2-12.0); Monocyte# 0.55 X10^3/uL; Monocyte% 7.4 % (0-10); NRBC Flagged by Analyzer 0 % (0-5); Neutrophil % 69.4 % (47-70); Platelet Count 303 K/mm3 (150-450); RBC Distribution Width CV 14.6 % (11.6-14.6); RBC Distribution Width SD 47.8 fl (35.1-43.9); Red Blood Count 4.18 M/mm3 (4.2-5.4); White Blood Count 7.5 K/mm3 (4.4-11.0)
== END ==
PROVIDERS: PCP Family Medicine; Referring Provider Family Medicine; Visit Provider Family Medicine
DX: Z87.11 Personal history of peptic ulcer disease (principal)
CPT/HCPCS: 36415; 85025

== ENCOUNTER → 2020-02-03 16:28 | Outpatient (CLI) | payer BC, SELFPAY ==
[2020-01-24 16:37] VITALS: BMI 28.4
--- NOTE | 2020-02-03 16:43 | EKG12_ITS ---
Test Reason : PRE OP Blood Pressure : / mmHG Vent. Rate : 071 BPM Atrial Rate : 071 BPM P-R Int : 160 ms QRS Dur : 078 ms QT Int : 354 ms P-R-T Axes : 045 012 036 degrees QTc Int : 384 ms Sinus rhythm with Premature atrial complexes Otherwise normal ECG Confirmed by MICHAEL ALFARO, MOHAN ([id number]), video editor EMILIA WALTER ([id number]) on 02/08/2020 11:16:32 A M Referred By: NIRMALA HILARIO Confirmed By:RENO RODRIGUEZ MD
--- NOTE | 2020-02-03 16:55 | RAD_ITS ---
STUDY: X-RAY CHEST REASON FOR EXAM: Female, 64 years old. PRE OP FOR KNEE SURGERY TECHNIQUE: PA and lateral COMPARISON: 10/15/2019 FINDINGS: The lungs are clear and expanded. There is no demonstrated pleural abnormality. Normal size heart. Normal mediastinum and raghav. Normal visualized pulmonary arteries. Tortuous aortic arch and descending thoracic aorta. Dorsal spine and shoulders demonstrates degenerative change. Normal visualized ribs, and clavicles Nonspecific bowel distention.. No significant change since prior exam. RAD/Chest PA and Lateral IMPRESSION: No acute cardiopulmonary pathology Electronically Signed: Sushil Forte MD at 22:20 EDT , Service support ,
[2020-02-03 17:09] LABS: Absolute Lymphocyte Count 2.09 X10^3/uL (0.83-4.51); Absolute Neutrophil Count 4.4 X10^3/uL (2.0-7.7); Basophil# 0.03 X10^3/uL; Basophil% 0.4 % (0-1); Hematocrit 40.9 % (37-47); Hemoglobin 12.9 g/dL (12.0-15.0); Lymphocyte # 2.09 X10^3/ul (4.0); Lymphocyte % 28.1 % (19-41); Mean Corp Hgb Conc 31.5 g/dL (32-36); Mean Corpuscular Hgb 27.2 pg (27.0-32.0); Mean Corpuscular Volume 86.3 fL (81-99); Mean Platelet Vol. 10.5 fl (6.2-12.0); Monocyte# 0.56 X10^3/uL; Monocyte% 7.5 % (0-10); NRBC Flagged by Analyzer 0 % (0-5); Neutrophil # 4.44 X10^3/uL (2.7-7.7); Neutrophil % 59.7 % (47-70); Platelet Count 271 K/mm3 (150-450); RBC Distribution Width CV 15.9 % (11.6-14.6); RBC Distribution Width SD 50.6 fl (35.1-43.9); Red Blood Count 4.74 M/mm3 (4.2-5.4); White Blood Count 7.4 K/mm3 (4.4-11.0)
[2020-02-03 17:11] LABS: Prothrombin Time (Protime)PT. 12.7 SECONDS (11.7-14.9)
[2020-02-03 17:13] LABS: Partial Thromboplast Time 28.9 Seconds (24.1-36.2)
[2020-02-03 17:42] LABS: ALB/GLOB Ratio 1.2 RATIO (0.9-2.4); AST(SGOT) 19 U/L (15-37); Alanine Aminotransfer ALT/SGPT 26 U/L (13-56); Albumin, Serum 3.6 g/dL (3.2-5.0); Alkaline Phosphatase 122 U/L (45-117); Anion Gap 6 (5-15); BUN 17 mg/dL (7-18); BUN/Creat Ratio 26.4 RATIO (10-20); Calcium,Total 9.2 mg/dL (8.5-10.1); Chloride 105 mmol/L (98-107); Creatinine, Serum 0.64 mg/dL (0.55-1.02); EST Glomerular Filtration Rate 99 mL/min (>60); Est Glom Filt Rate - Afr Amer 119 mL/min (>60); Globulin 3.1 g/dL (2.2-4.2); Glucose 114 mg/dL (74-106); Potassium 3.8 mmol/L (3.5-5.1); Protein, Total 6.7 g/dL (6.4-8.2); Sodium Level 139 mmol/L (136-145)
[2020-02-03 17:48] LABS: Hemoglobin A1c 5.7 % (3.8-5.6)
== END ==
PROVIDERS: PCP Family Medicine
DX: Z01.812 Encounter for preprocedural laboratory examination (principal)
CPT/HCPCS: 36415; 71046; 80053; 83036; 85025; 85610; 85730; 93005

== ENCOUNTER 2020-05-01 13:00 | Outpatient (RCR) | payer BC, SELFPAY ==
[2020-01-24 16:37] VITALS: BMI 28.4
[2020-02-24 14:12] VITALS: BMI 28.4
--- NOTE | 2020-02-29 14:57 | HP.PTEVAL_ITS ---
Patient's Visit Information ALEKSANDAR GREEN is a 64 year old F referred to Physical Therapy by NIRMALA SOSA with a diagnosis of L total knee revision. Date of Evaluation: 02/29/20 Physical Therapist: Cristóbal Fuentes DPT - Visit Plan Frequency: 3x /Week Duration: 6 Weeks Plan: Start with ROM focus on end range extension and progressing flexion as able. After 2 weeks progress strengthening as tolerated. - Subjective Pt. is here today for her initial evaluation with diagnosis of L knee revision. DOS: 02/27/20. Pt. reports this is a revision from her knee arthroplasty in 2002. Pt. reports from her last surgery that her knee never did get straight. Pt. reports already feeling better after surgery than she did before. She lives alone in a ranch style home. 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 Pt. denies N/T, denies calf pain, denies fever. Pt. has been icing multiple times per day. She reports being motivated to get back to normal as she has been dealing with issues for the past few years. - Pain L knee Pain Intensity (Out of 10): 2 Pain Intensity Range: 0, 4 - Objective POSTURE: Pt. has good posture in stance. Pt. has slight lateral lean to rigth side and uses FWW to stabilize. Pt. lacks TKE on LLE in stance. Equal iliac crest heights. PALPATION: I removed bandaging today. Incisions looks good, no signs of infection, no drainage noted. Pt. has negative homans signs as well. Pt. has not calf pain, no redness, no increased heat. NEURO: Pt. has normal s ensation of BLEs. Normal DTR of BLEs. Pt. is able to rise on heels and toes without issues, does require use of FWW for stability. ROM: L knee: 0-4-80deg. Pt. has pain limited further ROM, empty end feel. Pt. improved as stretching/ROM progressed. Pt. has tight B HS as well. MMT: Pt. is able to complete quad set on LLE, but SLR is difficult. LLE- ankle 5/5 throughout; knee ext- 3+/5, flexion 3+/5, hip- flexion 3-/5, abd 3/5. RLE- 5/5 throughout. GAIT: Pt. ambulates with FWW without LOB. She had decreased step length bilaterally. Pt. has slight lack of rosa strike with initial contact, but minimally. Pt. reports slight increase in symptoms with walking. - Goals Goal 1:: LTG: Pt. to be I with HEP. Goal Time Frame: 4-6 Weeks Goal 2:: STG: Pt. to have increased L knee ROM to 0-0-110deg. Goal Time Frame: 2-4 Weeks Goal 3:: LTG: pt. to have increased L knee ROM to 0-0-120deg. Goal Time Frame: 4-6 Weeks Goal 4:: LTG: Pt. to have increased LLE strength by 1/2 grade of all effected musculature. Goal Time Frame: 4-6 Weeks Goal 5:: STG: Pt. to walk with good gait pattern with 0-2/10 pain in L knee community level distances. Goal Time Frame: 2-4 Weeks Goal 6:: LTG: Pt. to ambulate with good pattern without AD unlimited distances without increase in symptoms. Goal Time Frame: 4-6 Weeks - Rehabilitation Potential Physical Therapy Diagnosis: Pt. has signss and symptoms consistent with L total knee revision. Pt. has subsequent hypomobility, weakness, diffculty walking, and increased pain. Pt. would benefit from PT to address above limitations to progress back to all functional and recreational activities without limitations. Rehabilitation Potential: Excellent - Anticipated Interventions Patient/Client Instruction: Educate patient on: Condition, Plan of Care, Risk Factors, Benefits of Fitness Program For the Purpose of:: To improve self management, To prevent re-injury, To improve ability to perform tasks related to life management, To improve tolerance to ADL's Therapeutic Exercise to Include: Strength training, Power training, Body mechanics, Postural training, Flexibilty training, Passive ROM, Active ROM For the Purpose of:: To decrease pain, To decrease swelling/inflammation, To increase ROM, To improve nutrient delivery to tissue, To increase oxygenation perfusion, To improve muscle performance and motor function, To improve gait and locomotor functions, To improve health of tissue, To decrease soft tissue restriction, To increase flexibility/ROM, To improve endurance, To improve balance, To improve safety with gait Cryotherapy (ice pack, ice massage): Yes Vasopneumatic device: Yes For the Purpose of:: To decrease pain, To decrease swelling/inflammation, To increase ROM Thank you for the opportunity to evaluate your patient. For Medicare and Medicare HMO plans, please review the plan of care and approve it. It will need to be FAXED BACK to us at [phone] for Medicare purposes. For Medicare only, by signing this I certify the plan of care. Please let me know if there are questions or concerns regarding this plan of care. Physician Signature: Date:
--- NOTE | 2020-04-10 11:54 | HP.PTREVAL ---
NIRMALA SOSA, It has been my pleasure to treat ALEKSANDAR GREEN over the last 16 visits for L total knee revision. Please see the progress note below for an update on the physical therapy plan of care! Subjective: Pt. reports I did walk a lot over the weekend, but I think I feel better now. Pt. reports being HEP compliant without issues. Objective/Function: ROM: 0-0-126deg L knee. MMT L knee: 18.2#, flexion 30.6; hip- 33.4lbs, abd 34.6 Lbs, ext 19.1lbs. TU.9sec. SHe is walking without AD, uto ~2 miles per day. pt. has decent gait pattern, but dose have some sligth lateral hip sway during L stance phase. Normal step length. STAIRS: Pt. completes with reciprocal pattern with 1 or 2 HR, slight functional weakness with ascending, slight pain with decending during L stance phase. Overall she is doing very well. Pt. reports decreased overall pain, but is having some slight L lateral hip pain that is deminishing as she resumes walking. He have focused on ROM, she is tight with TKE, but losens up after stretching/warming up. Pt. instructed to be consistent with extension ROM/stretching. I have added some hip strengthening to increase her L hip stability during stance phase of gait and stairs. WOMAC: 88 Plan Plan: Pt. to follow up with physician tomorrow and then resume PT if needed, as directed. Goals Goal 1:: LTG: Pt. to be I with HEP. Goal Time Frame: 4-6 Weeks Goal Progress: Goal Met Goal 2:: STG: Pt. to have increased L knee ROM to 0-0-110deg. Goal Time Frame: 2-4 Weeks Goal Progress: Goal Met Goal 3:: LTG: pt. to have increased L knee ROM to 0-0-120deg. Goal Time Frame: 4-6 Weeks Goal Progress: Goal Met Goal 4:: LTG: Pt. to have increased LLE strength by 1/2 grade of all effected musculature. Goal Time Frame: 4-6 Weeks Goal Progress: Progressing Goal 5:: STG: Pt. to walk with good gait pattern with 0-2/10 pain in L knee community level distances. Goal Time Frame: 2-4 Weeks Goal Progress: Goal Met Goal 6:: LTG: Pt. to ambulate with good pattern without AD unlimited distances without increase in symptoms. Goal Time Frame: 4-6 Weeks Goal Progress: Progressing Anticipated Interventions Patient/Client Instruction: Educate patient on: Condition, Plan of Care, Risk Factors, Benefits of Fitness Program For the Purpose of:: To improve self management, To prevent re-injury, To improve ability to perform tasks related to life management, To improve tolerance to ADL's Therapeutic Exercise to Include: Strength training, Power training, Body mechanics, Postural training, Flexibilty training, Passive ROM, Active ROM For the Purpose of:: To decrease pain, To decrease swelling/inflammation, To increase ROM, To improve nutrient delivery to tissue, To increase oxygenation perfusion, To improve muscle performance and motor function, To improve gait and locomotor functions, To improve health of tissue, To decrease soft tissue restriction, To increase flexibility/ROM, To improve endurance, To improve balance, To improve safety with gait Cryotherapy (ice pack, ice massage): Yes Vasopneumatic device: Yes For the Purpose of:: To decrease pain, To decrease swelling/inflammation, To increase ROM Please do not hesitate to contact me at [phone] by phone or if you have questions or concerns regarding this new plan of care! Sincerely, Cristóbal Fuentes DPT
--- NOTE | 2020-05-01 14:43 | HP.PTDCSUM ---
It has been my pleasure to treat ALEKSANDAR GREEN referred by NIRMALA SOSA, with the diagnosis of L total knee revision for a total of 20 visit(s). Discharge Date: 05/01/20 Please see the following information for a summary of their discharge status. Subjective: Pt. reports no issues today. Pt. reports being 95% better overall. Pt. reports minimal pain in general. Pt. reports being HEP compliant as well. She reports some minor swelling as well. L knee Pain Intensity (Out of 10): 0 L hip Pain Intensity (Out of 10): 0 % Improvement: 95 Objective/Function: TU.7sec. MMT: extension- 33.1#, flexion 29.4#. GAIT: pt. is ambulating without issues. Pt. has normal gait pattern. Stairs: Reciprocal pattern with mild increase in symptoms with descending. Pt. is independent wtih all gym and sasha exercises. Goal 1:: LTG: Pt. to be I with HEP. Goal Progress: Goal Met Goal 2:: STG: Pt. to have increased L knee ROM to 0-0-110deg. Goal Progress: Goal Met Goal 3:: LTG: pt. to have increased L knee ROM to 0-0-120deg. Goal Progress: Goal Met Goal 4:: LTG: Pt. to have increased LLE strength by 1/2 grade of all effected musculature. Goal Progress: Goal Met Goal 5:: STG: Pt. to walk with good gait pattern with 0-2/10 pain in L knee community level distances. Goal Progress: Goal Met Goal 6:: LTG: Pt. to ambulate with good pattern without AD unlimited distances without increase in symptoms. Goal Progress: Goal Met Plan: Pt. to be DC to HEP and gym exercises at this point in time. Discharge Comments: Pt. is progressed overall very well with PT. Pt. has great ROM and good strength. Pt. is back to most recreational activities without limitions. Pt. is independent in current exercises and will be DC to HEP at this point in time. If there are questions or concerns regarding this patient's physical therapy, please feel free to call me at [phone]. Thank you for the referral of this patient. Sincerely, Cristóbal Fuentes DPT
== END 2020-05-01 14:48 | disposition home or self-care (01) ==
LOC: PT 13:00
PROVIDERS: PCP Family Medicine
DX: Z47.1 Aftercare following joint replacement surgery (principal)
CPT/HCPCS: 97110; 97161; 97164

== ENCOUNTER → 2020-08-22 11:38 | Outpatient (CLI) | payer OTHER, SELFPAY ==
[2020-08-22 10:40] VITALS: BMI 31.6
[2020-08-22 15:39] LABS: Absolute Lymphocyte Count 1.96 X10^3/uL (0.83-4.51); Absolute Neutrophil Count 3.3 X10^3/uL (2.0-7.7); Basophil# 0.06 X10^3/uL; Eosinophils% 4.8 % (0-5); Hematocrit 44.1 % (37-47); Hemoglobin 13.7 g/dL (12.0-15.0); Lymphocyte # 1.96 X10^3/ul (4.0); Lymphocyte % 31.5 % (19-41); Mean Corp Hgb Conc 31.1 g/dL (32-36); Mean Corpuscular Hgb 28.7 pg (27.0-32.0); Mean Corpuscular Volume 92.5 fL (81-99); Mean Platelet Vol. 10.8 fl (6.2-12.0); Monocyte# 0.64 X10^3/uL; Monocyte% 10.3 % (0-10); NRBC Flagged by Analyzer 0 % (0-5); Neutrophil # 3.25 X10^3/uL (2.7-7.7); Neutrophil % 52.1 % (47-70); Platelet Count 293 K/mm3 (150-450); RBC Distribution Width CV 14.7 % (11.6-14.6); RBC Distribution Width SD 50.4 fl (35.1-43.9); Red Blood Count 4.77 M/mm3 (4.2-5.4); White Blood Count 6.2 K/mm3 (4.4-11.0)
[2020-08-22 15:41] LABS: International Normalized Ratio 0.9
[2020-08-22 15:42] LABS: Partial Thromboplast Time 30.2 Seconds (24.1-36.2)
[2020-08-22 15:52] LABS: Anion Gap 2 (5-15); BUN 12 mg/dL (7-18); BUN/Creat Ratio 18.2 RATIO (10-20); Calcium,Total 9.1 mg/dL (8.5-10.1); Chloride 105 mmol/L (98-107); Creatinine, Serum 0.66 mg/dL (0.55-1.02); EST Glomerular Filtration Rate 95 mL/min (>60); Est Glom Filt Rate - Afr Amer 115 mL/min (>60); Glucose 66 mg/dL (74-106); Potassium 4.1 mmol/L (3.5-5.1); Sodium Level 139 mmol/L (136-145)
[2020-08-22 16:45] LABS: Thyroid Stim Hormone (TSH) 2.21 uIU/mL (0.358-3.74)
== END ==
PROVIDERS: PCP Family Medicine; Visit Provider Nurse Practitioner Family
DX: R42 Dizziness and giddiness (principal); S83.419A Sprain of medial collateral ligament of unspecified knee, initial encounter
CPT/HCPCS: 36415; 80048; 84443; 85025; 85610; 85730

== ENCOUNTER 2020-09-17 15:22 | Outpatient (RCR) | payer OTHER, SELFPAY ==
[2020-08-22 10:40] VITALS: BMI 31.6
[2020-09-17 16:51] LABS: CRP 8.45 mg/L (0.0-3.0); EST Glomerular Filtration Rate 171 mL/min (>60); Est Glom Filt Rate - Afr Amer 207 mL/min (>60)
[2020-09-19 18:23] LABS: Hematocrit 35.8 % (37-47); Hemoglobin 11.2 g/dL (12.0-15.0); Mean Corp Hgb Conc 31.3 g/dL (32-36); Mean Corpuscular Hgb 29.2 pg (27.0-32.0); Mean Corpuscular Volume 93.2 fL (81-99); Mean Platelet Vol. 10.1 fl (6.2-12.0); Platelet Count 429 K/mm3 (150-450); RBC Distribution Width SD 47.5 fl (35.1-43.9); Red Blood Count 3.84 M/mm3 (4.2-5.4); White Blood Count 8.8 K/mm3 (4.4-11.0)
[2020-09-19 18:27] LABS: Erythrocyte Sedimentation Rate 20 mm/hr (0-30)
== END 2020-09-21 23:59 ==
LOC: HHLAB 15:22
PROVIDERS: PCP Family Medicine
DX: T84.54XA Infection and inflammatory reaction due to internal left knee prosthesis, initial encounter (principal)
CPT/HCPCS: 82565; 85027; 85652; 86140

== ENCOUNTER → 2020-09-19 18:06 | Outpatient (CLI) | payer OTHER, SELFPAY ==
[2020-08-22 10:40] VITALS: BMI 31.6
== END ==
PROVIDERS: PCP Family Medicine
DX: T84.093A Other mechanical complication of internal left knee prosthesis, initial encounter (principal)
CPT/HCPCS: 85027; 85652

== ENCOUNTER 2020-10-15 12:26 | Outpatient (RCR) | payer OTHER, SELFPAY ==
[2020-08-22 10:40] VITALS: BMI 31.6
[2020-09-24 11:23] LABS: Erythrocyte Sedimentation Rate 30 mm/hr (0-30)
[2020-09-24 11:26] LABS: Hematocrit 40.3 % (37-47); Hemoglobin 12.4 g/dL (12.0-15.0); Mean Corp Hgb Conc 30.8 g/dL (32-36); Mean Corpuscular Hgb 28.6 pg (27.0-32.0); Mean Corpuscular Volume 93.1 fL (81-99); Mean Platelet Vol. 9.8 fl (6.2-12.0); Platelet Count 385 K/mm3 (150-450); RBC Distribution Width CV 13.9 % (11.6-14.6); RBC Distribution Width SD 47.3 fl (35.1-43.9); Red Blood Count 4.33 M/mm3 (4.2-5.4); White Blood Count 6.9 K/mm3 (4.4-11.0)
[2020-09-24 11:35] LABS: Creatinine, Serum 0.73 mg/dL (0.55-1.02); EST Glomerular Filtration Rate 85 mL/min (>60); Est Glom Filt Rate - Afr Amer 103 mL/min (>60)
[2020-10-01 17:12] LABS: Hematocrit 42.1 % (37-47); Mean Corp Hgb Conc 30.9 g/dL (32-36); Mean Corpuscular Hgb 28.8 pg (27.0-32.0); Mean Corpuscular Volume 93.1 fL (81-99); Mean Platelet Vol. 10.6 fl (6.2-12.0); Platelet Count 337 K/mm3 (150-450); RBC Distribution Width CV 13.6 % (11.6-14.6); RBC Distribution Width SD 46.5 fl (35.1-43.9); Red Blood Count 4.52 M/mm3 (4.2-5.4)
[2020-10-01 17:28] LABS: EST Glomerular Filtration Rate 89 mL/min (>60); Est Glom Filt Rate - Afr Amer 107 mL/min (>60)
[2020-10-01 17:33] LABS: Erythrocyte Sedimentation Rate 42 mm/hr (0-30)
[2020-10-08 10:19] LABS: Erythrocyte Sedimentation Rate 35 mm/hr (0-30)
[2020-10-08 10:22] LABS: Hematocrit 44.9 % (37-47); Hemoglobin 13.9 g/dL (12.0-15.0); Mean Corpuscular Hgb 28.6 pg (27.0-32.0); Mean Corpuscular Volume 92.4 fL (81-99); Mean Platelet Vol. 10.2 fl (6.2-12.0); Platelet Count 347 K/mm3 (150-450); RBC Distribution Width SD 44.4 fl (35.1-43.9); Red Blood Count 4.86 M/mm3 (4.2-5.4); White Blood Count 8.1 K/mm3 (4.4-11.0)
[2020-10-08 10:46] LABS: CRP 7.86 mg/L (0.0-3.0); Creatinine, Serum 0.78 mg/dL (0.55-1.02); EST Glomerular Filtration Rate 79 mL/min (>60); Est Glom Filt Rate - Afr Amer 96 mL/min (>60)
[2020-10-15 15:34] LABS: Erythrocyte Sedimentation Rate 30 mm/hr (0-30)
[2020-10-15 15:35] LABS: CRP 7.31 mg/L (0.0-3.0); Creatinine, Serum 0.69 mg/dL (0.55-1.02); EST Glomerular Filtration Rate 90 mL/min (>60); Est Glom Filt Rate - Afr Amer 109 mL/min (>60)
[2020-10-15 15:36] LABS: Hematocrit 42.1 % (37-47); Hemoglobin 13.1 g/dL (12.0-15.0); Mean Corp Hgb Conc 31.1 g/dL (32-36); Mean Corpuscular Hgb 28.5 pg (27.0-32.0); Mean Corpuscular Volume 91.7 fL (81-99); Mean Platelet Vol. 10.8 fl (6.2-12.0); Platelet Count 293 K/mm3 (150-450); RBC Distribution Width CV 13.1 % (11.6-14.6); RBC Distribution Width SD 44.2 fl (35.1-43.9); Red Blood Count 4.59 M/mm3 (4.2-5.4)
== END 2020-10-15 18:00 | disposition home or self-care (01) ==
LOC: HHLAB 12:26
PROVIDERS: PCP Family Medicine
DX: T84.093A Other mechanical complication of internal left knee prosthesis, initial encounter (principal)
CPT/HCPCS: 82565; 85027; 85652; 86140

== ENCOUNTER → 2020-10-29 08:08 | Outpatient (CLI) | payer OTHER, SELFPAY ==
[2020-10-25 16:00] VITALS: BMI 31.6
[2020-10-29 12:38] LABS: Anion Gap 9 (5-15); BUN 11 mg/dL (7-18); BUN/Creat Ratio 17.4 RATIO (10-20); Chloride 104 mmol/L (98-107); Cholesterol 186 mg/dL (200); Creatinine, Serum 0.63 mg/dL (0.55-1.02); EST Glomerular Filtration Rate 100 mL/min (>60); Est Glom Filt Rate - Afr Amer 121 mL/min (>60); Glucose 75 mg/dL (74-106); High Density Lipoprotein 73 mg/dL; Potassium 4.1 mmol/L (3.5-5.1); Sodium Level 141 mmol/L (136-145); Triglycerides 92 mg/dL; Very Low Density Lipoprotein 18 mg/dL (5-40)
== END ==
PROVIDERS: PCP Family Medicine; Visit Provider Family Medicine
DX: I10 Essential (primary) hypertension (principal); E78.2 Mixed hyperlipidemia
CPT/HCPCS: 36415; 80048; 80061

== ENCOUNTER → 2020-11-01 16:40 | Outpatient (CLI) | payer OTHER, SELFPAY ==
[2020-10-25 16:00] VITALS: BMI 31.6
--- NOTE | 2020-11-01 16:23 | BI_ITS ---
MAMMOGRAPHY - BILATERAL SCREENING REASON FOR EXAM: Female, 65 years old. Routine annual screening examination. PERTINENT HISTORY: Non-contributory. TECHNIQUE: Digital bilateral breast indigo (3D mammographic acquisition) in the CC and MLO projections. 2-D mediolateral oblique (MLO) and craniocaudad (CC) views of both breasts were obtained. CAD: Full Field Digital Mammography with Computer Added Detection was performed. COMPARISON: Comparison is made with prior study dated 09/22/2016 and 09/13/2014 FINDINGS: Breast Composition: The breasts are heterogeneously dense, which may obscure small masses. There are no dominant masses or suspicious calcifications. No other significant abnormalities are identified. There has been no significant change since the prior study. BI/SCRN MAMM (CAD)W/INDIGO BILAT IMPRESSION: Stable bilateral screening mammogram. Yearly follow-up mammogram recommended. (A) ASSESSMENT CATEGORY: BIRADS Category 1: Negative. A letter regarding these results will be sent to the patient by the facility within 30 days. Approximately 10% of breast cancers are not detected by mammography. A normal mammogram should not delay biopsy of a clinically suspicious abnormality. [id number] Electronically Signed: Santo Jimenez MD at 8:16 EDT , Service support ,
== END ==
PROVIDERS: PCP Family Medicine; Referring Provider Family Medicine; Visit Provider Family Medicine
DX: Z12.31 Encounter for screening mammogram for malignant neoplasm of breast (principal)
CPT/HCPCS: 77063; 77067

== ENCOUNTER → 2020-11-16 11:33 | Outpatient (CLI) | payer OTHER, SELFPAY ==
[2020-10-25 16:00] VITALS: BMI 31.6
[2020-11-16 12:30] LABS: Erythrocyte Sedimentation Rate 16 mm/hr (0-30)
[2020-11-16 12:33] LABS: Absolute Lymphocyte Count 1.44 X10^3/uL (0.83-4.51); Absolute Neutrophil Count 4.5 X10^3/uL (2.0-7.7); Basophil# 0.05 X10^3/uL; Basophil% 0.7 % (0-1); Eosinophil# 0.33 X10^3/uL; Eosinophils% 4.6 % (0-5); Hematocrit 41.5 % (37-47); Hemoglobin 13.2 g/dL (12.0-15.0); Lymphocyte # 1.44 X10^3/ul (0.83-4.51); Lymphocyte % 20.1 % (19-41); Mean Corp Hgb Conc 31.8 g/dL (32-36); Mean Corpuscular Hgb 28.3 pg (27.0-32.0); Mean Corpuscular Volume 89.1 fL (81-99); Mean Platelet Vol. 9.9 fl (6.2-12.0); Monocyte# 0.78 X10^3/uL; Monocyte% 10.9 % (0-10); NRBC Flagged by Analyzer 0 % (0-5); Neutrophil # 4.53 X10^3/uL (2.7-7.7); Platelet Count 331 K/mm3 (150-450); RBC Distribution Width CV 13.5 % (11.6-14.6); RBC Distribution Width SD 43.9 fl (35.1-43.9); Red Blood Count 4.66 M/mm3 (4.2-5.4); White Blood Count 7.2 K/mm3 (4.4-11.0)
[2020-11-16 12:54] LABS: Albumin, Serum 3.4 g/dL (3.2-5.0); BUN 15 mg/dL (7-18); BUN/Creat Ratio 19.9 RATIO (10-20); CRP 3.96 mg/L (0.0-3.0); Calcium,Total 8.9 mg/dL (8.5-10.1); Chloride 104 mmol/L (98-107); Creatinine, Serum 0.75 mg/dL (0.55-1.02); EST Glomerular Filtration Rate 82 mL/min (>60); Est Glom Filt Rate - Afr Amer 99 mL/min (>60); Glucose 84 mg/dL (74-106); Phosphorus 3.4 mg/dL (2.5-4.9); Potassium 3.9 mmol/L (3.5-5.1); Sodium Level 139 mmol/L (136-145)
== END ==
PROVIDERS: PCP Family Medicine
DX: T84.54XD Infection and inflammatory reaction due to internal left knee prosthesis, subsequent encounter (principal); A49.1 Streptococcal infection, unspecified site
CPT/HCPCS: 36415; 80069; 85025; 85652; 86140

== ENCOUNTER → 2021-01-18 15:48 | Outpatient (CLI) | payer OTHER, SELFPAY ==
[2021-01-18 17:04] LABS: Absolute Lymphocyte Count 2.24 X10^3/uL (0.83-4.51); Absolute Neutrophil Count 4.1 X10^3/uL (2.0-7.7); Basophil# 0.04 X10^3/uL; Basophil% 0.5 % (0-1); Eosinophil# 0.37 X10^3/uL; Hematocrit 41.4 % (37-47); Hemoglobin 12.7 g/dL (12.0-15.0); Lymphocyte # 2.24 X10^3/ul (0.83-4.51); Lymphocyte % 30.4 % (19-41); Mean Corp Hgb Conc 30.7 g/dL (32-36); Mean Corpuscular Hgb 27.3 pg (27.0-32.0); Mean Corpuscular Volume 88.8 fL (81-99); Monocyte# 0.65 X10^3/uL; Monocyte% 8.8 % (0-10); NRBC Flagged by Analyzer 0 % (0-5); Neutrophil # 4.05 X10^3/uL (2.7-7.7); Neutrophil % 54.9 % (47-70); Platelet Count 270 K/mm3 (150-450); RBC Distribution Width CV 15.3 % (11.6-14.6); RBC Distribution Width SD 49.9 fl (35.1-43.9); Red Blood Count 4.66 M/mm3 (4.2-5.4); White Blood Count 7.4 K/mm3 (4.4-11.0)
[2021-01-18 17:20] LABS: Albumin, Serum 3.5 g/dL (3.2-5.0); BUN 26 mg/dL (7-18); BUN/Creat Ratio 38.7 RATIO (10-20); CRP < 2.90 mg/L (0.0-3.0); Calcium,Total 8.8 mg/dL (8.5-10.1); Chloride 105 mmol/L (98-107); Creatinine, Serum 0.67 mg/dL (0.55-1.02); EST Glomerular Filtration Rate 94 mL/min (>60); Est Glom Filt Rate - Afr Amer 113 mL/min (>60); Glucose 80 mg/dL (74-106); Phosphorus 4.3 mg/dL (2.5-4.9); Sodium Level 138 mmol/L (136-145)
[2021-01-18 17:32] LABS: Erythrocyte Sedimentation Rate 9 mm/hr (0-30)
== END ==
PROVIDERS: PCP Family Medicine
DX: T84.54XD Infection and inflammatory reaction due to internal left knee prosthesis, subsequent encounter (principal); A49.1 Streptococcal infection, unspecified site
CPT/HCPCS: 36415; 80069; 85025; 85652; 86140

== ENCOUNTER → 2021-03-05 07:57 | Outpatient (CLI) | payer OTHER, SELFPAY ==
--- NOTE | 2021-03-05 08:00 | MRI_ITS ---
STUDY: MRI LEFT ANKLE WITHOUT CONTRAST REASON FOR EXAM: Left ankle foot pain, injury 01/30/2021, chronic instability for 20 years. TECHNIQUE: Standardized fat and water weighted pulse sequences were obtained in all 3 orthogonal planes. COMPARISON: MRI images 12/22/2009. FINDINGS: There is edema in the lateral subcutis adipose space. There is a very small volume of fluid in the distal posterior tibialis tendon sheath (T2 axial image 20). The posterior tibialis tendon is morphologically normal. There is a very small volume of fluid in the flexor digitorum longus tendon sheath proximal to the sustentaculum solis (T2 axial image 21). The flexor digitorum longus tendon is morphologically normal. Normal flexor hallucis longus tendon. There is nonvisualization of the submalleolar peroneus longus and brevis tendons as on the prior study. Normal tibialis anterior tendon. Normal extensor hallucis longus tendon. Normal extensor digitorum longus tendons. Normal Achilles tendon and teno-osseous insertion. There is a small posterior calcaneal enthesophyte. Normal plantar fascia. There is a small plantar calcaneal enthesophyte. There is mild atrophy with mild partial fat replacement of the abductor digiti minimi muscle (T1 sagittal image 16). Normal distal tibiofibular syndesmotic ligamentous complex. There is attenuation of the anterior talofibular ligament (T2 axial images 17, 18) as on the prior study. Normal calcaneofibular and posterior talofibular ligaments. There are corticated ossicles at the distal aspect of the lateral malleolus (T1 sagittal images 18, 19) as on the prior study. Normal subtalar ligaments and sinus tarsi. Normal deltoid ligamentous complexes. Normal plantar calcaneonavicular (spring) ligament. There is a small tibiotalar joint effusion (inversion recovery sagittal image 14). There is a very small subchondral cyst in the medial talar dome (T2 coronal image 15). There is mild subchondral cystic change of the tibial plafond (inversion recovery sagittal images 9, 10). There is a nondisplaced fracture of the lateral malleolus with bone edema (inversion recovery sagittal images 18-20). There are postsurgical changes with micrometallic artifact at the lateral aspect of the distal tibial diametaphysis (T2 coronal image 17). Normal subtalar articulations. Normal talonavicular articulation. There is mild bone edema in the medial navicular (inversion recovery axial volumes images 14, 15). There is a small calcaneocuboid joint effusion (inversion recovery sagittal image 15) and mild bone edema in the anterior calcaneus (inversion recovery sagittal image 15). Normal navicular-cuneiform articulations. There is arthrosis of the second tarsometatarsal articulation with chondral thinning and subchondral cystic change/bone edema (inversion recovery sagittal image 9). There is arthrosis of the third tarsometatarsal articulation with chondral thinning and subchondral cystic change (inversion recovery sagittal image 11, 12). MRI/Lower Ext Joint Only (Routine) IMPRESSION: Nondisplaced fracture of the lateral malleolus with bone edema. Attenuation of the anterior talofibular ligament as on the prior study. Nonvisualization of the submalleolar peroneal tendons as on the prior study. Mild bone edema in the anterior calcaneus and medial navicular, a stress phenomenon. Very mild posterior tibialis and flexor digitorum longus tenosynovitis. 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 Tibiotalar and calcaneocuboid joint effusions. Mild atrophy of the abductor digiti minimi muscle. Electronically Signed: Sedrick Mcconnell MD at 14:05 EDT Tel , Service support ,
== END ==
PROVIDERS: PCP Family Medicine; Referring Provider Podiatrist; Visit Provider Podiatrist
DX: S93.492A Sprain of other ligament of left ankle, initial encounter (principal); M25.572 Pain in left ankle and joints of left foot; S82.832A Other fracture of upper and lower end of left fibula, initial encounter for closed fracture
CPT/HCPCS: 73721

== ENCOUNTER 2021-05-23 09:00 | Outpatient (RCR) | payer OTHER, SELFPAY ==
--- NOTE | 2021-05-02 11:08 | HP.PTEVAL_ITS ---
Patient's Visit Information ALEKSANDAR GREEN is a 66 year old F referred to Physical Therapy by Dr. Emmie Schmitt DPM with a diagnosis of L ankle instability, h/o ankle sprains. Date of Evaluation: 05/01/21 Physical Therapist: Cristóbal Fuentes DPT - Visit Plan Frequency: 2x /Week Duration: 4-6 Weeks Plan: Strengthen Left ankle musculature to prevent further ankle inversion sprains and instability. Incorporate strengthening of Left hip musculature as well to improve overall muscle control and stability. - Subjective Pt reports she had a non-displaced ankle fracture in January, and since then she has not had pain, but feels her ankle is unstable and will give out on her relatively easily. She states she has been doing 4-way ankle theraband strengthening at home but is not sure if she is doing them correctly. Pt states she has had a few falls due to her ankle giving out on her, therefore pt feels insecure when walking on uneven surfaces. Pt denies numbness and tingling in LE's. Pt states goals for therapy are to strengthen her left leg and increase stability of ankle to prevent future falls and be able to increase feeling of confidence in her ankle. - Objective ROM Left ankle: DF 1 degree, PF 45 degrees, eversion 9 degrees inversion 51; Right DF 9 degrees , PF 55 degrees, Inversion 35 degrees, Eversion 3 degrees. STRENGTH : LEFT DF 5/5, PF 5/5, eversion 4/5 , Inversion 4+/5, HIP flexion 4-/5 , extension 4-/5, abduction 4+/5 , IR 4+/5, ER 4+/5 , KNEE flexion 5/5, extension 5/5 ; RIGHT DF 5/5, PF 5/5, eversion 4+/5, inversion 5/5; HIP flexion 4/5, extension 4-/5, abduction 4+/5, IR 4+/5, ER 4+/5, Knee :flexion 5/5, extension 5/5. OBSERVATION: Left foot:5 MTP medial drifting over top 4th digit. GAIT : slight antalgic gait w/ supination left foot during stance phase - Balance/Special Test Scores Lower Extremity Functional Score: 46 - Goals Goal 1:: Pt will be independent HEP. Goal Time Frame: 2-4 Weeks Goal 2:: LTG: Pt will improve strength of L ankle to 5/5 strength to improve stability and decrease falls. Goal Time Frame: 2-4 Weeks Goal 3:: LTG: Pt will improve strength of L hip muscles to 5/5 to improve gait pattern and stability. Goal Time Frame: 2-4 Weeks Goal 4:: STG: Pt will report no falls from ankle instability in 2 weeks. Goal Time Frame: 2 Weeks Goal 5:: STG: Pt will - Rehabilitation Potential Physical Therapy Diagnosis: L ankle weakness, L hip weakness, excessive motion of L foot Rehabilitation Potential: Good - Anticipated Interventions Patient/Client Instruction: Educate patient on: Condition, Plan of Care For the Purpose of:: To decrease pain, To improve ability to perform ADL's, To improve balance, To improve safety, To improve health and function, To improve self management, To prevent re-injury Therapeutic Exercise to Include: Strength training, Balance training, Body mechanics For the Purpose of:: To decrease pain, To improve ability to perform ADL's, To improve ability of physical actions for home/community/work/leisure, To improve gait and locomotor functions, To improve health of tissue, To improve safety, To improve health and function, To improve self management, To prevent re-injury, To improve ability to perform tasks related to life management Thank you for the opportunity to evaluate your patient. For Medicare and Medicare HMO plans, please review the plan of care and approve it. It will need to be FAXED BACK to us at [phone] for Medicare purposes. For Medicare only, by signing this I certify the plan of care. Please let me know if there are questions or concerns regarding this plan of care. Physician Signature: Date:
== END 2021-05-23 19:00 | disposition home or self-care (01) ==
LOC: PT 09:00
PROVIDERS: PCP Family Medicine; Referring Provider Podiatrist; Visit Provider Podiatrist
DX: M25.372 Other instability, left ankle (principal); S93.402D Sprain of unspecified ligament of left ankle, subsequent encounter; X58.XXXD Exposure to other specified factors, subsequent encounter
CPT/HCPCS: 97110; 97161

== ENCOUNTER 2021-08-15 15:47 | Outpatient (CLI) | payer BC, SELFPAY ==
[2021-08-15 16:33] LABS: Absolute Lymphocyte Count 2.23 X10^3/uL (0.83-4.51); Basophil# 0.04 X10^3/uL; Basophil% 0.6 % (0-1); Eosinophil# 0.32 X10^3/uL; Eosinophils% 4.5 % (0-5); Hematocrit 40.4 % (37-47); Lymphocyte # 2.23 X10^3/ul (0.83-4.51); Lymphocyte % 31.1 % (19-41); Mean Corp Hgb Conc 32.2 g/dL (32-36); Mean Corpuscular Hgb 29.4 pg (27.0-32.0); Mean Corpuscular Volume 91.4 fL (81-99); Mean Platelet Vol. 9.9 fl (6.2-12.0); Monocyte# 0.57 X10^3/uL; Monocyte% 7.9 % (0-10); NRBC Flagged by Analyzer 0 % (0-5); Neutrophil % 55.6 % (47-70); Platelet Count 245 K/mm3 (150-450); RBC Distribution Width CV 13.7 % (11.6-14.6); RBC Distribution Width SD 46.3 fl (35.1-43.9); Red Blood Count 4.42 M/mm3 (4.2-5.4); White Blood Count 7.2 K/mm3 (4.4-11.0)
[2021-08-15 16:55] LABS: Albumin, Serum 3.8 g/dL (3.2-5.0); BUN 30 mg/dL (7-18); BUN/Creat Ratio 23.1 RATIO (10-20); CRP < 2.90 mg/L (0.0-3.0); Calcium,Total 8.9 mg/dL (8.5-10.1); Chloride 105 mmol/L (98-107); EST Glomerular Filtration Rate 44 mL/min (>60); Est Glom Filt Rate - Afr Amer 53 mL/min (>60); Glucose 99 mg/dL (74-106); Phosphorus 4.2 mg/dL (2.5-4.9); Sodium Level 138 mmol/L (136-145)
[2021-08-15 17:16] LABS: Erythrocyte Sedimentation Rate 6 mm/hr (0-30)
== END 2021-08-15 23:59 | disposition home or self-care (01) ==
PROVIDERS: PCP Family Medicine; Visit Provider Internal Medicine Infectious Disease
DX: A49.1 Streptococcal infection, unspecified site (principal); T84.54XD Infection and inflammatory reaction due to internal left knee prosthesis, subsequent encounter; Z79.2 Long term (current) use of antibiotics
CPT/HCPCS: 36415; 80069; 85025; 85652; 86140

== ENCOUNTER → 2021-11-08 | Outpatient (CLI) | payer MEDICARE, OTHER, SELFPAY ==
--- NOTE | 2021-11-08 07:28 | BI_ITS ---
MAMMOGRAPHY - BILATERAL SCREENING REASON FOR EXAM: Female, 66 years old. Routine annual screening examination. PERTINENT HISTORY: Non-contributory. TECHNIQUE: Digital bilateral breast indigo (3D mammographic acquisition) in the CC and MLO projections. 2-D mediolateral oblique (MLO) and craniocaudad (CC) views of both breasts were obtained. CAD: Full Field Digital Mammography with Computer Added Detection was performed. COMPARISON: Comparison is made with prior study dated 11/01/2020 and 09/22/2016. FINDINGS: Breast Composition: The breasts are extremely dense, which lowers the sensitivity of mammography. There are no dominant masses or suspicious calcifications. No other significant abnormalities are identified. There has been no significant change since the prior study. BI/SCRN MAMM (CAD)W/INDIGO BILAT IMPRESSION: Stable bilateral screening mammogram. Yearly follow-up mammogram recommended. (A) ASSESSMENT CATEGORY: BIRADS Category 1: Negative. A letter regarding these results will be sent to the patient by the facility within 30 days. Approximately 10% of breast cancers are not detected by mammography. A normal mammogram should not delay biopsy of a clinically suspicious abnormality. [id number] Electronically Signed: Santo Jimenez MD at 8:39 EDT ,
== END | disposition home or self-care (01) ==
LOC: OPBI 07:27
PROVIDERS: PCP Family Medicine; Visit Provider Family Medicine
DX: Z12.31 Encounter for screening mammogram for malignant neoplasm of breast (principal)
CPT/HCPCS: 77063; 77067

== ENCOUNTER → 2022-05-06 | Outpatient (CLI) | payer MEDICARE, OTHER, SELFPAY ==
[2022-05-06 14:33] LABS: ALB/GLOB Ratio 1.5 RATIO (0.9-2.4); AST(SGOT) 18 U/L (15-37); Alanine Aminotransfer ALT/SGPT 24 U/L (13-56); Albumin, Serum 4.1 g/dL (3.2-5.0); Alkaline Phosphatase 93 U/L (45-117); Anion Gap 6 (5-15); BUN 17 mg/dL (7-18); Calcium,Total 9.3 mg/dL (8.5-10.1); Chloride 104 mmol/L (98-107); Creatinine, Serum 0.68 mg/dL (0.55-1.02); EST Glomerular Filtration Rate 92 mL/min (>60); Est Glom Filt Rate - Afr Amer 111 mL/min (>60); Globulin 2.8 g/dL (2.2-4.2); Glucose 84 mg/dL (74-106); Potassium 5.2 mmol/L (3.5-5.1); Protein, Total 6.9 g/dL (6.4-8.2); Sodium Level 138 mmol/L (136-145)
== END | disposition home or self-care (01) ==
LOC: BIMLAB 11:26
PROVIDERS: PCP Family Medicine; Referring Provider Family Medicine; Visit Provider Family Medicine
DX: I10 Essential (primary) hypertension (principal)
CPT/HCPCS: 36415; 80053

== ENCOUNTER → 2022-08-25 | Outpatient (CLI) | payer MEDICARE, OTHER, SELFPAY ==
[2022-08-25 16:44] LABS: Anion Gap 4 (5-15); BUN 22 mg/dL (7-18); BUN/Creat Ratio 31.9 RATIO (10-20); Calcium,Total 9.1 mg/dL (8.5-10.1); Chloride 109 mmol/L (98-107); Creatinine, Serum 0.69 mg/dL (0.55-1.02); EST Glomerular Filtration Rate 90 mL/min (>60); Est Glom Filt Rate - Afr Amer 109 mL/min (>60); Glucose 86 mg/dL (74-106); Sodium Level 139 mmol/L (136-145)
== END | disposition home or self-care (01) ==
PROVIDERS: PCP Family Medicine
DX: Z01.810 Encounter for preprocedural cardiovascular examination (principal); Z01.812 Encounter for preprocedural laboratory examination; Z01.818 Encounter for other preprocedural examination
CPT/HCPCS: 36415; 80048

== ENCOUNTER → 2022-08-27 | Outpatient (CLI) | payer MEDICARE, OTHER, SELFPAY | END | disposition home or self-care (01) | LOC: PSN 09:00 | PROVIDERS: PCP Family Medicine | DX: Z01.812 Encounter for preprocedural laboratory examination (principal) | CPT/HCPCS: 93005 ==

== ENCOUNTER 2022-10-02 12:00 | Outpatient (RCR) | payer MEDICARE, OTHER, SELFPAY ==
--- NOTE | 2022-09-24 17:15 | HP.PTEVAL_ITS ---
Patient's Visit Information ALEKSANDAR GREEN is a 67 year old F referred to Physical Therapy by EMMETT LEON with a diagnosis of S/P L knee arthroscopy and synovectomy with presence of L TKA. Date of Evaluation: 09/24/22 Physical Therapist: Cristóbal Fuentes DPT - Visit Plan Frequency: 2x /Week Duration: 6 Weeks Plan: Start with quad, glute medius strengthening. Progress to functional strengthening as tolerated. - Subjective Pt. is here today for her initial evaluation with diagnosis of S/P L knee arthroscopy and synovectomy with presence of L total knee arthroplasty. Pt. had surgery a ~3 weeks ago. She was having increased crepitus in her knee ~3 years after her surgery and ultimately had to have removal of some scar tissue. Pt. arrives today without much pain. She reports already feeling much better. She denies any fever, no calf pain and no difficulty breathing. Pt. is now retired, but would like to get back to all outside work and recreational walking without increase in pain. She does report having some increased difficulty with stairs and with getting up off of lower surfaces. - Pain L knee Pain Intensity (Out of 10): 1 Pain Intensity Range: 0, 4 - Objective POSTURE: Pt. has decent posture in stance. Normal wt. shift between BLEs. PALPATION: Pt. has good well healing incisions. Pt. has no signs of infection. NEURO: Pt. has normal sensation in BLEs. Pt. has normal achilles DTR. Pt. is able to rise on heels and toes without limitations. ROM: L knee: PROM: 0-0-121deg. AROM 0-0-115. Pt. has tight L HS. MMT: RLE: ankle 5/5 throughout; knee: ext 58#, flexion 37#; hip: flexion 18#, abd 15#. LLE: ankle 5/5 throughout; knee: ext 32#; flexion 32#; hip: flexion 13#, abd 14#. GAIT: Pt. has decent gait pattern, slight reduction in R step length, but other than that it was fairly good. STAIRS: Pt. has increased difficulty with push up with LLE. Also difficulty with controlled eccentric lowering during L stance phase. - Balance/Special Test Scores Lower Extremity Functional Score: 42 TUG Test Time Seconds: 14 - Goals Goal 1:: LTG: pt. to be I with HEP. Goal Time Frame: 4-6 Weeks Goal 2:: LTG: Pt. to ambulate with normal gait pattern without increase in s ymptoms without AD. Goal Time Frame: 4-6 Weeks Goal 3:: LTG: pt. to have symmetrical BLE strength allowing for increased ability to complete all functional mobility without limitations. Goal Time Frame: 4-6 Weeks Goal 4:: LTG: Pt. to negotiate 1 flight of stairs with reciprocal pattern without signs of functional weakness. Goal Time Frame: 4-6 Weeks - Rehabilitation Potential Physical Therapy Diagnosis: Pt. has signs and symptoms consistent with S/P L knee arthroscopy and synovectomy with presence of L total knee arthroplasty. Pt. is doing well, but has some marked quad and hip abductor weakness and would benefit PT to address the above limitations. Rehabilitation Potential: Excellent - Anticipated Interventions Patient/Client Instruction: Educate patient on: Condition, Plan of Care, Risk Factors, Benefits of Fitness Program For the Purpose of:: To improve self management, To prevent re-injury, To improve ability to perform tasks related to life management, To improve tolerance to ADL's Therapeutic Exercise to Include: Strength training, Power training, Endurance training, Body mechanics, Postural training, Flexibilty training, Gait and locomotor training For the Purpose of:: To decrease pain, To increase ROM, To improve nutrient delivery to tissue, To increase oxygenation perfusion, To improve muscle performance and motor function, To improve ability to perform ADL's, To increase tolerance to activity/condition/position, To improve gait and locomotor functions, To improve health of tissue, To decrease soft tissue restriction, To increase flexibility/ROM Thank you for the opportunity to evaluate your patient. For Medicare and Medicare HMO plans, please review the plan of care and approve it. It will need to be FAXED BACK to us at [phone] for Medicare purposes. For Medicare only, by signing this I certify the plan of care. Please let me know if there are questions or concerns regarding this plan of care. Physician Signature: Date:
== END 2022-10-02 19:00 | disposition home or self-care (01) ==
LOC: PT 12:00
PROVIDERS: PCP Family Medicine
DX: Z47.1 Aftercare following joint replacement surgery (principal); Z96.652 Presence of left artificial knee joint
CPT/HCPCS: 97110; 97161

== ENCOUNTER → 2023-03-06 | Outpatient (CLI) | payer MEDICARE, OTHER, SELFPAY ==
--- NOTE | 2023-03-06 12:38 | BI_ITS ---
MAMMOGRAPHY - BILATERAL SCREENING REASON FOR EXAM: Female, 67 years old. Routine annual screening examination. PERTINENT HISTORY: Non-contributory. TECHNIQUE: Digital bilateral breast indigo (3D mammographic acquisition) in the CC and MLO projections. 2-D mediolateral oblique (MLO) and craniocaudad (CC) views of both breasts were obtained. CAD: Full Field Digital Mammography with Computer Added Detection was performed. COMPARISON: Comparison is made with prior study dated 07/11/2021 and November 01, 2020. FINDINGS: Breast Composition: The breasts are extremely dense, which lowers the sensitivity of mammography. There are no dominant masses or suspicious calcifications. Stable small benign-appearing bilateral axillary lymph nodes. No other significant abnormalities are identified. There has been no significant change since the prior study. BI/SCRN MAMM (CAD)W/INDIGO BILAT IMPRESSION: Stable bilateral screening mammogram. Yearly follow-up mammogram recommended. (A) ASSESSMENT CATEGORY: BIRADS Category 2: Benign. A letter regarding these results will be sent to the patient by the facility within 30 days. Approximately 10% of breast cancers are not detected by mammography. A normal mammogram should not delay biopsy of a clinically suspicious abnormality. [id number] Electronically Signed: Santo Jimenez MD at 15:36 EDT ,
== END | disposition home or self-care (01) ==
LOC: OPBI 12:37
PROVIDERS: PCP Family Medicine; Referring Provider Family Medicine; Visit Provider Family Medicine
DX: Z12.31 Encounter for screening mammogram for malignant neoplasm of breast (principal)
CPT/HCPCS: 77063; 77067

== ENCOUNTER → 2023-09-23 | Outpatient (CLI) | payer MEDICARE, OTHER, SELFPAY ==
[2023-09-23 12:26] LABS: ALB/GLOB Ratio 1.1 RATIO (0.9-2.4); AST(SGOT) 19 U/L (15-37); Alanine Aminotransfer ALT/SGPT 23 U/L (13-56); Albumin, Serum 3.7 g/dL (3.2-5.0); Alkaline Phosphatase 106 U/L (45-117); Anion Gap 4 (5-15); BUN 16 mg/dL (7-18); BUN/Creat Ratio 22.5 RATIO (10-20); Calcium,Total 9.5 mg/dL (8.5-10.1); Chloride 104 mmol/L (98-107); Cholesterol 175 mg/dL (200); Creatinine, Serum 0.71 mg/dL (0.55-1.02); EST Glomerular Filtration Rate 87 mL/min (>60); Est Glom Filt Rate - Afr Amer 105 mL/min (>60); Globulin 3.4 g/dL (2.2-4.2); Glucose 95 mg/dL (74-106); High Density Lipoprotein 77 mg/dL; Potassium 3.9 mmol/L (3.5-5.1); Protein, Total 7.1 g/dL (6.4-8.2); Sodium Level 137 mmol/L (136-145); Triglycerides 79 mg/dL; Very Low Density Lipoprotein 16 mg/dL (5-40)
[2023-09-23 12:31] LABS: Hemoglobin A1c 5.6 % (3.8-5.6)
== END | disposition home or self-care (01) ==
LOC: BIMLAB 10:35
PROVIDERS: PCP Family Medicine; Visit Provider Family Medicine
DX: I10 Essential (primary) hypertension (principal); R73.9 Hyperglycemia, unspecified
CPT/HCPCS: 36415; 80053; 80061; 83036

== ENCOUNTER → 2024-04-08 | Outpatient (CLI) | payer MEDICARE, OTHER, SELFPAY ==
--- NOTE | 2024-04-08 15:00 | BI_ITS ---
MAMMOGRAPHY - BILATERAL SCREENING REASON FOR EXAM: Female, 69 years old. Routine annual screening examination. PERTINENT HISTORY: Non-contributory. TECHNIQUE: Digital bilateral breast indigo (3D mammographic acquisition) in the CC and MLO projections. 2-D mediolateral oblique (MLO) and craniocaudad (CC) views of both breasts were obtained. CAD: Full Field Digital Mammography with Computer Added Detection was performed. COMPARISON: Comparison is made with prior study of March 06, 2023 and November 08, 2021. FINDINGS: Breast Composition: The breasts are extremely dense, which lowers the sensitivity of mammography. There are no dominant masses or suspicious calcifications. No other significant abnormalities are identified. There has been no significant change since the prior study. BI/SCRN MAMM (CAD)W/INDIGO BILAT IMPRESSION: Stable bilateral screening mammogram. Yearly follow-up mammogram recommended. (A) ASSESSMENT CATEGORY: BIRADS Category 1: Negative. A letter regarding these results will be sent to the patient by the facility within 30 days. Approximately 10% of breast cancers are not detected by mammography. A normal mammogram should not delay biopsy of a clinically suspicious abnormality. [id number] Electronically Signed: Santo Jimenez MD at 15:40 EST ,
== END | disposition home or self-care (01) ==
LOC: OPBI 14:59
PROVIDERS: PCP Family Medicine; Referring Provider Family Medicine; Visit Provider Family Medicine
DX: Z12.31 Encounter for screening mammogram for malignant neoplasm of breast (principal)
CPT/HCPCS: 77063; 77067

== ENCOUNTER → 2024-10-25 | Outpatient (CLI) | payer MEDICARE, OTHER, SELFPAY ==
[2024-10-25 12:25] LABS: Absolute Neutrophil Count 4.1 X10^3/uL (2.0-7.7); Basophil# 0.05 X10^3/uL; Basophil% 0.7 % (0-1); Eosinophil# 0.29 X10^3/uL; Hematocrit 42.4 % (37-47); Hemoglobin 14.1 g/dL (12.0-15.0); Lymphocyte % 30.3 % (19-41); Mean Corp Hgb Conc 33.3 g/dL (32-36); Mean Corpuscular Hgb 29.2 pg (27.0-32.0); Mean Corpuscular Volume 87.8 fL (81-99); Mean Platelet Vol. 10.2 fl (6.2-12.0); Monocyte# 0.58 X10^3/uL; NRBC Flagged by Analyzer 0 % (0-5); Neutrophil # 4.11 X10^3/uL (2.7-7.7); Neutrophil % 56.7 % (47-70); Platelet Count 316 K/mm3 (150-450); RBC Distribution Width CV 14.4 % (11.6-14.6); RBC Distribution Width SD 46.3 fl (35.1-43.9); Red Blood Count 4.83 M/mm3 (4.2-5.4); White Blood Count 7.3 K/mm3 (4.4-11.0)
[2024-10-25 12:50] LABS: Cholesterol 209 mg/dL (<=200); High Density Lipoprotein 87 mg/dL; Low Density Lipoprotein Calc. 104 mg/dL; Triglycerides 90 mg/dL; Very Low Density Lipoprotein 18 mg/dL (5-40)
[2024-10-25 13:15] LABS: ALB/GLOB Ratio 1.7 RATIO (0.9-2.4); AST(SGOT) 22 U/L (<=31); Alanine Aminotransfer ALT/SGPT 17 U/L (<=34); Albumin, Serum 4.4 g/dL (3.4-4.8); Alkaline Phosphatase 91 U/L (35-104); Anion Gap 12 (5-15); BUN 16 mg/dL (4-19); Calcium,Total 9.9 mg/dL (7.6-11.0); Carbon Dioxide 26.4 mmol/L (21.0-32.0); Chloride 99 mmol/L (98-108); Globulin 2.6 g/dL (2.2-4.2); Glucose 86 mg/dL (70-99); Sodium Level 137 mmol/L (133-145); Total Bilirubin 0.32 mg/dL (0.00-1.30)
[2024-10-25 13:38] LABS: BUN/Creat Ratio 22.1 RATIO (10-20); Creatinine, Serum 0.72 mg/dL (0.70-1.20); EST Glomerular Filtration Rate 90 (>60)
--- OUTSIDE RECORDS SUMMARY | 2024-10-25 20:33 | XMS RPT_ITS | CCD ---
Author Organization [facility] CliniSyfl Care Team Providers Care National Sales Associate Name Role Phone Dr. Maurice Salinas Primary Care Provider [phone] Dr. Maurice Salinas Attending Provider [phone] Dr. Maurice Salinas Referring Provider [phone] Dr. Maurice Salinas Primary Care Provider [phone] Dr. Maurice Salinas Attending Provider [phone] Maurice Salinas Referring Provider [phone] Saad MONGE, MARIPOSA-C Rick Attending Provider [phone] Dr. Angelica De La Rosa Attending Provider [phone] SON TENA Referring Provider Unavailable Dr. Maurice Salinas Primary Care Provider [phone] Dr. Maurice Salinas Attending Provider [phone] Maurice Salinas Referring Provider [phone] Maurice Salinas Primary Care Provider [phone] Dr. Maurice Salinas Attending Provider [phone] Dr. Maurice Salinas Referring Provider [phone] Maurice Salinas Primary Care Unavailable Brown, Maurice R Referring Unavailable Brown, Maurice R Attending Unavailable Brown, Maurice R Primary Care Unavailable Brown, Maurice R Referring Unavailable Brown, Maurice R Attending Unavailable Brown, Maurice R Attending Unavailable Brown, Maurice R Primary Care Unavailable Brown, Maurice R Referring Unavailable Brown, Maurice R Primary Care Unavailable Brown, Maurice R Referring Unavailable Brown, Maurice R Attending Unavailable Brown, Maurice R Primary Care Unavailable Brown, Maurice R Attending Unavailable Brown, Maurice R Primary Care Unavailable Brown, Maurice R Referring Unavailable Brown, Maurice R Attending Unavailable Maurice Salinas Primary Care Unavailable Maurice Salinas Referring Unavailable Maurice Salinas Attending Unavailable Allergies Allergy Classification Reported Allergen(s) Allergy Type Date of Onset Reaction(s) Facility (9 sources) Erythromycin Drug Allergy 2 Unknown [facility] (10 sources) Penicillins; Translations: [Penicillins] Allergy to substance 2 Unknown [facility] (10 sources) rosiglitazone; Translations: [rosiglitazone maleate] Drug Allergy 2 Swelling [facility] (10 sources) Sulfonamides (Antibiotic); Translations: [Sulfa (Sulfonamide Antibiotics)] Allergy to substance 2 Unknown [facility] (1 source) Erythromycin Drug Allergy 4 [facility] Repository Medications Current Medications Medication Drug Class(es) Dates Sig (Normalized) Sig (Original) acetaminophen 325 mg / HYDROcodone bitartrate 5 mg oral tablet (20 sources) Opioid Agonist Start: 09-23-2023 take 1 tablet by mouth every eight hours Hydrocodone-Aceta minophen Active 1 TABLET PO Q8H 30 September 23, 2023 Start: 03-17-2023 End: 04-14-2023 take 1 tablet by mouth every eight hours Hydrocodone-Acetaminophen Discontinued 1 TABLET PO Q8H 90 March 17, 2023 April 14, 2023 1:04am Start: 12-17-2022 End: 01-14-2023 take 1 tablet by mouth every eight hours Hydrocodone-Acetaminophen Discontinued 1 TABLET PO Q8H 90 December 17, 2022 January 14, 2023 12:05am Start: 07-29-2022 End: 08-26-2022 take 1 tablet by mouth every six hours Hydrocodone-Acetaminophen Discontinued 1 TABLET PO EVERY 6 HOURS 90 July 29, 2022 August 26, 2022 12:04am Start: 05-06-2022 End: 06-03-2022 take 1 tablet by mouth every six hours Hydrocodone-Acetaminophen Discontinued 1 TABLET PO EVERY 6 HOURS 90 May 06, 2022 June 03, 2022 1:04am Start: 02-11-2022 End: 03-11-2022 take 1 tablet by mouth every six hours Hydrocodone-Acetaminophen Discontinued 1 TABLET PO EVERY 6 HOURS 90 February 11, 2022 March 11, 2022 12:03am Start: 10-30-2021 End: 11-27-2021 take 1 tablet by mouth every six hours Hydrocodone-Acetaminophen Discontinued 1 TABLET PO EVERY 6 HOURS 90 October 30, 2021 November 27, 2021 12:02am Start: 07-11-2021 End: 08-10-2021 take 1 tablet by mouth every six hours Hydrocodone-Acetaminophen Discontinued 1 TABLET PO EVERY 6 HOURS 90 July 11, 2021 August 10, 2021 12:04am Start: 05-09-2021 End: 06-08-2021 take 1 tablet by mouth every six hours Hydrocodone-Acetaminophen Discontinued 1 TABLET PO EVERY 6 HOURS 90 May 09, 2021 June 08, 2021 1:01am Start: 03-17-2021 End: 04-16-2021 take 1 tablet by mouth every six hours Hydrocodone-Acetaminophen Discontinued 1 TABLET PO EVERY 6 HOURS 90 March 17, 2021 April 16, 2021 1:01am Start: 12-19-2020 End: 01-19-2021 take 1 tablet by mouth every six hours Hydrocodone-Acetaminophen Discontinued 1 TABLET PO EVERY 6 HOURS 90 January 18, 2021 January 19, 2021 12:01am Start: 05-10-2019 End: 11-24-2020 take 1 tablet by mouth every six hours Hydrocodone-Acetaminophen Discontinued 1 TABLET PO EVERY 6 HOURS 90 August 07, 2020 October 25, 2020 4:09pm Start: 03-29-2019 End: 04-27-2019 take 1 tablet by mouth every six hours Hydrocodone-Acetaminophen Discontinued 1 TABLET PO EVERY 6 HOURS 120 March 29, 2019 April 27, 2019 5:14pm Start: 08-19-2017 End: 05-10-2019 take 1 tablet by mouth every eight hours Hydrocodone-Acetaminophen Discontinued 1 TABLET PO Q8H 90 March 26, 2019 May 10, 2019 11:36am amLODIPine 5 mg oral tablet (7 sources) Dihydropyridine Calcium Channel Louie Start: 05-06-2022 End: 03-17-2023 take 5 mg by mouth once daily Amlodipine Active 5 MG PO DAILY 90 March 17, 2023 9:40am ARIPiprazole 5 mg oral tablet (13 sources) Atypical Antipsychotic Start: 10-22-2022 End: 05-01-2024 take 5 mg by mouth at bedtime Aripiprazole Active 5 MG PO AT BEDTIME September 23, 2023 10:12am Start: 08-27-2022 End: 10-22-2022 take 2 mg by mouth at bedtime Aripiprazole Discontinue d 2 MG PO AT BEDTIME October 22, 2022 11:51am October 22, 2022 3:48pm citalopram 10 mg oral tablet (20 sources) Serotonin Reuptake Inhibitor Start: 02-11-2022 End: 03-17-2023 take 10 mg by mouth once daily Citalopram Active 10 MG PO DAILY March 17, 2023 9:40am Start: 07-25-2020 End: 10-30-2021 take 10 mg by mouth once daily Citalopram Discontinued 10 MG PO DAILY May 23, 2021 12:17pm October 30, 2021 11:39am Start: 04-26-2020 End: 07-25-2020 Citalopram Discontinued 20 M G .ROUTE .COMPLEX May 03, 2020 12:11pm July 25, 2020 5:26pm 20 mg; Start: 01-25-2019 End: 04-26-2020 take 1 tablet by mouth at bedtime Citalopram Discontinued 0 .ROUTE .COMPLEX January 25, 2019 1:04pm April 26, 2020 11:17am TAKE 1 TABLET BY MOUTH AT BEDTIME Start: 06-08-2013 End: 01-25-2019 take 40 mg by mouth at bedtime Citalopram Discontinued 40 MG PO AT BEDTIME August 11, 2018 4:15pm January 25, 2019 1:04pm hydroCHLOROthiazide 12.5 mg / valsartan 160 mg oral tablet (3 sources) Thiazide Diuretic, Angiotensin 2 Receptor Louie Start: 10-22-2022 take 1 tablet by mouth once daily Valsartan-Hydrochlorothiazide Active 1 TABLET PO DAILY October 22, 2022 12:00am Semaglutide (1 source) Start: 09-23-2023 Semaglutide (Ozempic) 0.25 m g or 0.5 mg (2 mg/3 mL) pen injector Active 0.25 MG SC EVERY WEEK September 23, 2023 12:00am for 4 weeks zolpidem tartrate 10 mg oral tablet (20 sources) gamma-Aminobu tyric Acid-ergic Agonist Start: 06-09-2023 End: 09-23-2023 take 10 mg by mouth at bedtime Zolpidem Active 10 MG PO AT BEDTIME September 23, 2023 10:12am Start: 02-10-2023 End: 03-17-2023 take 12.5 mg by mouth at bedtime Zolpidem Active 12.5 MG PO AT BEDTIME March 17, 2023 9:41am Start: 10-30-2021 End: 03-17-2023 take 10 mg by mouth at bedtime Zolpidem Discontinued 1 0 MG PO AT BEDTIME October 28, 2022 12:30pm March 17, 2023 9:30am Start: 06-08-2013 End: 10-30-2021 take 12.5 mg by mouth at bedtime as needed Zolpidem Discontinued 12.5 MG PO AT BEDTIME NEEDED June 26, 2021 9:19am October 30, 2021 8:16am Completed/Discontinued Medications Medication Drug Class(es) Dates Sig (Normalized) Sig (Original) acetaminophen 325 mg / oxyCODONE hydrochloride 5 mg oral tablet (20 sources) Opioid Agonist Start: 09-03-2014 End: 08-19-2017 take 1 tablet by mouth every six hours as needed Oxycodone-Acetamino phen Discontinued 1 TABLET PO EVERY 6 HOURS NEEDED September 03, 2014 12:27am August 19, 2017 3:31pm Start: 06-16-2013 End: 11-10-2017 take 1 tablet by mouth every four hours as needed Oxycodone-Acetaminophen Discontinued 1 TABLET PO EVERY 4 HOURS NEEDED August 19, 2017 November 10, 2017 4:20pm brexpiprazole 0.5 mg oral tablet (10 sources) Atypical Antipsychotic Start: 07-29-2022 End: 08-27-2022 take 1 tablet by mouth once daily Brexpiprazole (Rexulti) 0.5 mg tablet Discontinued 0.5 MG PO DAILY August 11, 2022 10:39am August 27, 2022 8:42am 24 hr buPROPion hydrochloride 150 mg extended release oral tablet (20 sources) Aminoketone Start: 06-08-2013 End: 07-29-2022 take 150 mg by mouth at bedtime Bupropion Hcl Discontinued 150 MG PO AT BEDTIME April 15, 2022 10:13am July 29, 2022 2:10pm cephalexin 500 mg oral tablet (18 sources) Cephalosporin Antibacterial Start: 10-25-2020 End: 01-24-2021 take 500 mg by mouth twice daily Cephalexin Discontinued 500 MG PO TWICE A DAY October 25, 2020 12:00am January 24, 2021 3:59pm Start: 02-18-2019 End: 04-27-2019 take 1 capsule by mouth three times daily Cephalexin (Keflex) 500 mg capsule Discontinued 500 MG PO THREE TIMES A DAY February 18, 2019 12:00am April 27, 2019 5:13pm clindamycin 300 mg oral capsule (9 sources) Lincosamide Antibacterial Start: 07-25-2020 End: 08-22-2020 take 600 mg by mouth once Clindamycin Hcl Discontinued 600 MG PO ONCE 4 July 25, 2020 1:00am August 22, 2020 11:14am crisaborole 0.02 mg/mg topical ointment (9 sources) Start: 08-11-2018 End: 02-09-2019 Crisaborole (Eucrisa) 2 % ointment Discontinued 1 APPLIC TOPICAL TWICE A DAY 60 August 11, 2018 12:00am February 09, 2019 3:52pm apply thin layer to the affected area 24 hr darifenacin 15 mg extended release oral tablet (9 sources) Cholinergic Muscarinic Antagonist Start: 06-08-2013 End: 08-19-2017 take 15 mg by mouth at bedtime Darifenacin Discontinued 15 MG PO AT BEDTIME June 08, 2013 1:00am August 19, 2017 3:33pm dicyclomine hydrochloride 10 mg oral capsule (9 sources) Anticholinergic Start: 05-05-2018 End: 08-11-2018 take 10 mg by mouth three times daily Dicyclomine Discontinued 10 MG PO THREE TIMES A DAY May 05, 2018 1:00am August 11, 2018 4:06pm hydroCHLOROthiazide 12.5 mg oral tablet (4 sources) Thiazide Diuretic Start: 09-09-2022 End: 12-17-2022 take 12.5 mg by mouth once daily in the morning Hydrochlorothiazide Discontinued 12.5 MG PO DAILY September 09, 2022 12:00am December 17, 2022 11:25am Daily in the morning. hydrocortisone 10 mg/ml topical cream (18 sources) Corticosteroid Start: 10-21-2019 End: 01-24-2020 Hydrocortisone Discontinued 1 APPLIC TOPICAL AT BEDTIME October 21, 2019 6:35am January 24, 2020 4:36pm Start: 08-31-2018 End: 10-21-2019 Hydrocortisone (Cortaid) 1 % cream Discontinued 1 APPLIC TOPICAL AT BEDTIME August 31, 2018 12:00am October 21, 2019 6:35am lansoprazole 30 mg delayed release oral capsule (9 sources) Proton Pump Inhibitor Start: 06-08-2013 End: 08-19-2017 take 30 mg by mouth at bedtime Lansoprazole Discontinued 30 MG PO AT BEDTIME June 08, 2013 1:00am August 19, 2017 3:32pm LORazepam 0.5 mg oral tablet (9 sources) Benzodiazepine Start: 10-25-2019 End: 04-26-2020 take 0.5 mg by mouth twice daily Lorazepam Discontinued 0.5 MG PO TWICE A DAY October 25, 2019 12:00am April 26, 2020 11:17am meclizine hydrochloride 25 mg oral tablet (20 sources) Antiemetic Start: 08-22-2020 End: 09-16-2021 take 25 mg by mouth twice daily Meclizine Discontinued 25 MG PO TWICE A DAY May 23, 2021 12:17pm September 16, 2021 11:29am 24 hr mirabegron 25 mg extended release oral tablet (20 sources) beta3-Adrenergic Agonist Start: 11-03-2018 End: 07-27-2019 take 1 tablet by mouth once daily Mirabegron (Myrbetriq) 25 mg tablet extended release 24 hr Discontinued 25 MG PO DAILY November 03, 2018 4:33pm July 27, 2019 4:59pm Start: 08-19-2017 End: 08-11-2018 take 1 tablet by mouth once daily Mirabegron (Myrbetriq) 25 mg tablet extended release 24 hr Discontinued 25 MG PO daily August 26, 2017 1:29pm August 11, 2018 4:05pm Multivitamin With Folic Acid (9 sources) Start: 06-08-2013 End: 08-19-2017 take 1 tablet by mouth at bedtime Multivitamin With Folic Acid Discontinued 1 TABLET PO AT BEDTIME June 08, 2013 3:04pm August 19, 2017 3:32pm Start: 06-08-2013 End: 08-19-2017 take 1 tablet by mouth at bedtime Multivitamin With Folic Acid Discontinued 1 TABLET PO AT BEDTIME June 08, 2013 12:00am August 19, 2017 2:32pm Start: 06-08-2013 End: 08-19-2017 take 1 tablet by mouth at bedtime Multivitamin With Folic Acid Discontinued 1 TABLET PO AT BEDTIME June 08, 2013 1:00am August 19, 2017 3:32pm omeprazole 40 mg delayed release oral capsule (20 sources) Proton Pump Inhibitor Start: 10-25-2019 End: 06-24-2023 take 40 mg by mouth once daily Omeprazole Discontinued 40 MG PO DAILY May 23, 2021 12:17pm October 30, 2021 11:41am Start: 08-19-2017 End: 11-10-2017 take 20 mg by mouth twice daily Omeprazole Discontinued 20 MG PO TWICE A DAY August 19, 2017 12:00am November 10, 2017 4:19pm Start: 08-19-2017 End: 07-27-2019 take 40 mg by mouth once daily Omeprazole Discontinued 40 MG PO daily August 11, 2018 4:14pm July 27, 2019 5:12pm swallow whole; do not crush, chew, dissolve, cut, break pantoprazole 40 mg delayed release oral tablet (9 sources) Proton Pump Inhibitor Start: 10-22-2019 End: 10-25-2019 take 40 mg by mouth twice daily Pantoprazole Discontinued 40 MG PO TWICE A DAY October 22, 2019 12:00am October 25, 2019 8:25am pregabalin 100 mg oral capsule (20 sources) Start: 08-19-2017 End: 07-27-2019 take 1 capsule by mouth once daily Pregabalin (Lyrica) 100 mg capsule Discontinued 100 MG PO daily May 10, 2019 11:36am July 27, 2019 4:59pm simvastatin 10 mg oral tablet (20 sources) HMG-CoA Reductase Inhibitor Start: 06-08-2013 End: 09-23-2023 take 10 mg by mouth at bedtime Simvastatin Discontinued 10 MG PO AT BEDTIME July 22, 2022 4:48pm September 09, 2022 2:40pm sucralfate 1000 mg oral tablet (9 sources) Aluminum Complex Start: 05-27-2014 End: 08-19-2017 take 1 g by mouth four times daily Sucralfate Discontinued 1 GM PO 4 TIMES DAILY 120 May 27, 2014 1:00am August 19, 2017 3:32pm valsartan 160 mg oral tablet (8 sources) Angiotensin 2 Receptor Louie Start: 06-23-2022 End: 12-17-2022 take 160 mg by mouth once daily Valsartan Discontinued 160 MG PO DAILY 90 October 22, 2022 11:51am December 17, 2022 11:25am Problems Active Problems Problem Classification Problem Date Documented Da te Episodic/Chronic Acute posthemorrhagic anemia (9 sources) Acute posthemorrhagic anemia; Translations: [Acute posthemorrhagic anemia] 10-21-2019 Episodic Aortic; peripheral; and visceral artery aneurysms (11 sources) Abdominal aortic aneurysm; Translations: [Abdominal aortic aneurysm, without rupture] 04-25-2021 Chronic Disorders of lipid metabolism (16 sources) Hyperlipidemia; Translations: [Hyperlipidemia, unspecified] Chronic Esophageal disorders (12 sources) Gastroesophageal reflux disease; Translations: [Gastro-esophageal reflux disease without esophagitis] 10-21-2019 Chronic Essential hypertension (20 sources) Hypertensive disorder; Translations: [Essential (primary) hypertension] Onset: 4 Chronic Gastroduodenal ulcer (except hemorrhage) (14 sources) H/O: peptic ulcer; Translations: [Personal history of peptic ulcer disease] Episodic Gastrointestinal hemorrhage (9 sources) Acute peptic ulcer with hemorrhage; Translations: [Acute peptic ulcer, site unspecified, with hemorrhage] 10-21-2019 Episodic Heart valve disorders (9 sources) Heart murmur; Translations: [Cardiac murmur, unspecified] 08-19-2017 Episodic Miscellaneous mental health disorders (3 sources) Chronic insomnia; Translations: [Psychophysiologic insomnia] Onset: 4 09-23-2023 Chronic Mood disorders (16 sources) Depressive disorder; Translations: [Depression] Chronic Osteoarthritis (12 sources) Osteoarthritis; Translations: [Unspecified osteoarthritis, unspecified site] Chronic Other bone disease and musculoskeletal deformities (9 sources) Osteopenia; Translations: [Other specified disorders of bone density and structure, unspecified site] 10-21-2019 Episodic Other connective tissue disease (1 source) Presence of unspecified artificial knee joint; Translations: [Presence of unspecified artificial knee joint] Onset: 4 Chronic Other gastrointestinal disorders (9 sources) History of pancreatitis; Translations: [Personal history of other diseases of the digestive system] 10-21-2019 Episodic Other gastrointestinal disorders (9 sources) History of bariatric surgical procedure; Translations: [Bariatric surgery status] 05-06-2022 Episodic Other lower respiratory disease (9 sources) H/O: pneumonia; Translations: [Personal history of pneumonia (recurrent)] 10-21-2019 Episodic Other non-epithelial cancer of skin (9 sources) History of malignant basal cell neoplasm of skin; Translations: [Personal history of other malignant neoplasm of skin] 10-21-2019 Episodic Other non-traumatic joint disorders (1 source) Pain in left shoulder; Translations: [Left shoulder pain] 03-17-2023 Episodic Other screening for suspected conditions (not mental disorders or infectious disease) (1 source) Encounter for screening mammogram for malignant neoplasm of breast; Translations: [Encounter for screening mammogram for malignant neoplasm of breast] Onset: Episodic Spondylosis; intervertebral disc disorders; other back problems (15 sources) Chronic neck pain; Translations: [Cervicalgia] Episodic Sprains and strains (9 sources) Rupture of medial collateral ligament of knee ; Translations: [Sprain of medial collateral ligament of unspecified knee, initial encounter] 01-24-2020 Episodic Past or Other Problems Problem Classification Problem Date Documented Da te Episodic/Chronic Complication of device; implant or graft (12 sources) Prosthetic joint infection; Translations: [Infection and inflammatory reaction due to other internal joint prosthesis, initial encounter] Onset: 09-23-2023 Episodic Diabetes mellitus without complication (1 source) Hyperglycemia, unspecified; Translations: [Hyperglycemia, unspecified] Onset: 09-23-2023 Episodic Other bone disease and musculoskeletal deformities (2 sources) Other specified disorders of bone density and structure, unspecified site; Translations: [Disorder of bone and cartilage, unspecified] Onset: 09-23-2023 09-23-2023 Episodic Other gastrointestinal disorders (11 sources) Bariatric surgery status; Translations: [Bariatric surgery status] Onset: 09-23-2023 Episodic Other gastrointestinal disorders (1 source) Personal history of other diseases of the digestive system; Translations: [Personal history of other diseases of the digestive system] Onset: 01-27-2024 Episodic Results Test Name Value Interpretation Reference Range Facility Internal Medicine Office Vis iton 12-04-2024 Internal Medicine Office Visit [facility] [address] [place] [address] [place] [address] OFFICE VISIT Date of Service: 04/27/24 MR#: [id number] Acct: [id number] Name: ALEKSANDAR GREEN Rep #: [id number] : 1955 Provider: Dr. Maurice Mcginnis own, DO Age/Sex: 69/F Location: [facility] [place] Status: Signed Intake Vital Signs 01/27/24 10:36 04/27/24 09:57 Height 5 ft 2 in 5 ft 2 in Weight: 184 lb 4 oz 176 lb 6 oz BMI 33.7 32.2 BP 124/76 H 124/74 H Blood Pressure Location Lt brachial Lt brachial Position Sitting Sitting Respiration 16 16 Pulse 87 60 Pulse Source Monitor Monitor Temp 97.8 F 97.6 F L Temp Source Temporal Temporal Pulse Oximetry (%) 97 99 Oxygen Delivery Method room air room air Intake Visit Reasons: 3 m fu Chief Complaint: 3m f/u Pin Cleaner Required: No Accompanied by: Self Is patient in pain?: No Allergies Penicillins (PCN) Allergy (Verified 04/27/24 09:53) Unknown Sulfa (Sulfonamide Antibiotics) Allergy (Verified 04/27/24 09:53) Unknown erythromycin base (Erythromycin Base) Adverse Reaction (Verified 04/27/24 09:53) Unknown rosiglitazone maleate (From Avandia) Adverse Reaction (Verified 04/27/24 09:53) Swelling Medications ???Medication ???Instructions ???Recorded ???Confirmed ???Type meclizine 25 mg tablet 25 mg PO BID PRN dizziness #30 tabs 09/16/21 04/27/24 Rx simvastatin 10 mg tablet 10 mg PO QHS #90 tabs 09/23/23 04/27/24 Rx valsartan 160 1 tab PO DAILY #90 tabs 10/27/23 04/27/24 Rx mg-hydrochlorothiazid e 12.5 mg tablet semaglutide 1 mg/dose (4 mg/3 mL) 1 mg (0.75 mL) subcut QWEEK #3 mL 01/05/24 04/27/24 Rx subcutaneous pen injector amlodipine 5 mg tablet 5 mg PO DAILY #90 tabs 01/27/24 04/27/24 Rx aripiprazole 5 mg tablet 5 mg PO QHS #90 tabs 01/27/24 04/27/24 Rx citalopram 10 mg tablet 10 mg PO DAILY #90 tabs 01/27/24 04/27/24 Rx omeprazole 40 mg capsule,delayed 40 mg PO DAILY #90 caps 01/27/24 04/27/24 Rx release zolpidem 10 mg tablet 10 mg PO QHS #30 tabs 04/27/24 04/27/24 Rx Have you fallen in the past year?: No PFSH Medical History History of pancreatitis Heart murmur Hyperlipemia Hypertension History of pneumonia History of basal cell cancer Osteopenia Osteoarthritis Surgical History Hx of arthroscopic knee surgery History of intestinal surgery History of cholecystectomy History of appendectomy History of gastric bypass History of bilateral knee replacement Family History Mother Hypertension Cancer GI Hyperlipemia Father Heart disease Hyperlipemia Hypertension Grandfather Hypertension Hyperlipemia Grandmother Hypertension Hyperlipemia Social History Smoking Status: Never smoker alcohol intake: current alcohol intake frequency: holidays/special occasions only substance use type: does not use what type of physical activity do you participate in: other details: very active frequency: daily HPI HPI Chief Complaint: 3m f/u Details: ALEKSANDAR GREEN, is a 69 F who presents to the office today for a three month follow up. She has lost weight. She is now at the weight she was 10 years ago. ROS Const Constitutional: No body ache, chills, excessive sweating, fatigue, fever(s), frequent falls, headache(s), snoring, weakness or change in appetite Eyes Eyes: No blurry vision, change in vision, eye pain or Light sensitivity ENT ENT: No abnormal hearing, ear or mastoid pain, tinnitus, nasal congestion, headache(s), neck pain or sore throat Resp Respiratory: No cough, shortness of breath, snoring or wheezing Cardio Cardiology: No chest pain at rest, chest pain with exertion, excessive sweating, dyspnea on exertion, lightheadedness, orthopnea or palpitations Gastro GI: No abdominal pain, change in bowel habits, constipation, cramping, diarrhea, nausea/dyspepsia or vomiting Genitourinary-Female: No burning urination, painful urination, urinary incontinence or urinary frequency Musc Musculoskeletal: No abnormal gait, joint pain, back pain, limited range of motion, muscle weakness, neck pain or numbness Skin Skin: No dry skin, redness, lesions, itchy eyes, rash or wounds Neuro Neurology: No abnormal gait, abnormal hearing, weakness, frequent falls, headache(s), memory loss or numbness Psych Psychiatric: No anxiety, No change in appetite, No depression, No memory loss and No Thoughts of harming yourself/Others Endo Endocrine: No cold intolerance, excessive sweating, fatigue, flushing, heat intolerance, increased thirst/drinking or increased hunger Aller/Imm Allergy/Immunologic: No itchy eyes, seasonal allergy symptoms, hives or wheezi (more content not included)... Normal [facility] SCRN MAMM (CAD)W/INDIGO BILATo n 04-08-2024 SCRN MAMM (CAD)W/INDIGO BILAT [facility] Imaging Services [address] [place] [address] [id number] SCRN MAMM (CAD)W/INDIGO BILAT MR#: [id number] Acct: [id number] Name: ALEKSANDAR GREEN Rep #: [id number] : 1955 F 69 From: [place] MD PCP: Dr. Maurice Salinas, Status: REG [facility] Study: SCRN MAMM (CAD)W/INDIGO BILAT Date of Exam: 03/25 10/15 Exam# [id number] Ordering Dr: Maurice Salinas DO [id number] MAMMOGRAPHY - BILATERAL SCREENING REASON FOR EXAM: Female, 69 years old. Routine annual screening examination. PERTINENT HISTORY: Non-contributory. TECHNIQUE: Digital bilateral breast indigo (3D mammographic acquisition) in the CC and MLO projections. 2-D mediolateral oblique (MLO) and craniocaudad (CC) views of both breasts were obtained. CAD: Full Field Digital Mammography with Computer Added Detection was performed. COMPARISON: Comparison is made with prior study of March 06, 2023 and November 08, 2021. FINDINGS: Breast Composition: The breasts are extremely dense, which lowers the sensitivity of mammography. There are no dominant masses or suspicious calcifications. No other significant abnormalities are identified. There has been no significant change since the prior study. BI/SCRN MAMM (CAD)W/INDIGO BILAT IMPRESSION: Stable bilateral screening mammogram. Yearly follow-up mammogram recommended. (A) ASSESSMENT CATEGORY: BIRADS Category 1: Negative. A letter regarding these results will be sent to the patient by the facility within 30 days. Approximately 10% of breast cancers are not detected by mammography. A normal mammogram should not delay biopsy of a clinically suspicious abnormality. [id number] Electronically Signed: Santo Jimenez MD at 15:40 EST Reading Location ID and State: [address] [place] [address] , Service support , CC: Dr. Maurice Salinas DO Machine Stacker: Signed Normal [facility] Internal Medicine Office Vis iton 01-27-2024 Internal Medicine Office Visit [facility] [place], [place] [address] OFFICE VISIT Date of Service: 01/27/24 MR#: [id number] Acct: [id number] Name: ALEKSANDAR GREEN Rep #: [id number] : 1955 Provider: Dr. Maurice rodriguez DO Age/Sex: 68/F Location: [facility] [place] Status: Signed Intake Vital Signs 10/27/23 11:22 01/27/24 10:36 Height 5 ft 2 in 5 ft 2 in Weight: 197 lb 184 lb 4 oz BMI 36.0 33.7 BP 126/76 H 124/76 H Blood Pressure Location Lt brachial Lt brachial Position Sitting Sitting Respiration 16 16 Pulse 88 87 Pulse Source Monitor Monitor Temp 97.7 F L 97.8 F Temp Source Temporal Temporal Pulse Oximetry (%) 99 97 Oxygen Delivery Method room air room air Intake Visit Reasons: 3 M FU Chief Complaint: 3m f/u Pin Cleaner Required: No Accompanied by: Self Is patient in pain?: No Allergies Penicillins (PCN) Allergy (Verified 01/27/24 10:33) Unknown Sulfa (Sulfonamide Antibiotics) Allergy (Verified 01/27/24 10:33) Unknown erythromycin base (Erythromycin Base) Adverse Reaction (Verified 01/27/24 10:33) Unknown rosiglitazone maleate (From Avandia) Adverse Reaction (Verified 01/27/24 10:33) Swelling Medications ???Medication ???Instructions ???Recorded ???Confirmed ???Type meclizine 25 mg tablet 25 mg PO BID PRN dizziness #30 tabs 09/16/21 01/27/24 Rx zolpidem 12.5 mg tablet,extended 12.5 mg PO QHS #30 tabs 03/17/23 01/27/24 Rx release,multiphase simvastatin 10 mg tablet 10 mg PO QHS #90 tabs 09/23/23 01/27/24 Rx valsartan 160 1 tab PO DAILY #90 tabs 10/27/23 01/27/24 Rx mg-hydrochlorothiazid e 12.5 mg tablet semaglutide 1 mg/dose (4 mg/3 mL) 1 mg (0.75 mL) subcut QWEEK #3 mL 01/05/24 01/27/24 Rx subcutaneous pen injector amlodipine 5 mg tablet 5 mg PO DAILY #90 tabs 01/27/24 01/27/24 Rx aripiprazole 5 mg tablet 5 mg PO QHS #90 tabs 01/27/24 01/27/24 Rx citalopram 10 mg tablet 10 mg PO DAILY #90 tabs 01/27/24 01/27/24 Rx omeprazole 40 mg capsule,delayed 40 mg PO DAILY #90 caps 01/27/24 01/27/24 Rx release zolpidem 10 mg tablet 10 mg PO QHS #30 tabs 01/27/24 01/27/24 Rx Have you fallen in the past year?: No PFSH Medical History History of pancreatitis Heart murmur Hyperlipemia Hypertension History of pneumonia History of basal cell cancer Osteopenia Osteoarthritis Surgical History Hx of arthroscopic knee surgery History of intestinal surgery History of cholecystectomy History of appendectomy History of gastric bypass History of bilateral knee replacement Family History Mother Hypertension Cancer GI Hyperlipemia Father Heart disease Hyperlipemia Hypertension Grandfather Hypertension Hyperlipemia Grandmother Hypertension Hyperlipemia Social History Smoking Status: Never smoker alcohol intake: current alcohol intake frequency: holidays/special occasions only substance use type: does not use what type of physical activity do you participate in: other details: very active frequency: daily HPI HPI Chief Complaint: 3m f/u Details: ALEKSANDAR GREEN, is a 68 F who presents to the office today for 3-month follow-up following her beginning Ozempic for weight loss. Over the last 3 months she has lost 25 pounds and other than feeling like she has no appetite she is very pleased with how she is doing. ROS Const Constitutional: No body ache, chills, excessive sweating, fatigue, fever(s), frequent falls, headache(s), snoring, weakness or change in appetite Eyes Eyes: No blurry vision, change in vision, eye pain or Light sensitivity ENT ENT: No abnormal hearing, ear or mastoid pain, tinnitus, nasal congestion, headache(s), neck pain or sore throat Resp Respiratory: No cough, shortness of breath, snoring or wheezing Cardio Cardiology: No chest pain at rest, chest pain with exertion, excessive sweating, dyspnea on exertion, lightheadedness, orthopnea or palpitations Gastro GI: No abdominal pain, change in bowel habits, constipation, cramping, diarrhea, nausea/dyspepsia or vomiting Genitourinary-Female: No burning urination, painful urination, urinary incontinence or urinary frequency Musc Musculoskeletal: No abnormal gait, joint pain, back pain, limited range of motion, muscle weakness, neck pain or numbness Skin Skin: No dry skin, redness, lesions, itchy eyes, rash or wounds Neuro Neurology: No abnormal gait, abnormal hearing, weakness, frequent falls, headache(s), memory loss or numbness Psych Psychiatric: No anxiety, No change in appetite, No depression, No memory loss and No Thoughts of harming yourself/Others Endo Endocrine: No co (more content not included)... Normal [facility] Internal Medicine Office Vis iton 10-27-2023 Internal Medicine Office Visit [facility] [address] [place] [address] [place] [address] OFFICE VISIT Date of Service: 10/27/23 MR#: [id number] Acct: [id number] Name: ALEKSANDAR GREEN Rep #: [id number] : 1955 Provider: Dr. Maurice rodriguez, DO Age/Sex: 68/F Location: [facility] [place] Status: Signed Intake Vital Signs 09/23/23 10:02 10/27/23 11:22 Height 5 ft 2 in 5 ft 2 in Weight: 208 lb 197 lb BMI 38.0 36.0 BP 132/80 H 126/76 H Blood Pressure Location Lt brachial Lt brachial Position Sitting Sitting Respiration 17 16 Pulse 81 88 Pulse Source Monitor Monitor Temp 98.0 F 97.7 F L Temp Source Temporal Temporal Pulse Oximetry (%) 96 99 Oxygen Delivery Method room air room air Intake Visit Reasons: 4 WK FU Chief Complaint: 4 week f/u Pin Cleaner Required: No Accompanied by: Self Is patient in pain?: No Allergies Penicillins (PCN) Allergy (Verified 10/27/23 11:20) Unknown Sulfa (Sulfonamide Antibiotics) Allergy (Verified 10/27/23 11:20) Unknown erythromycin base (Erythromycin Base) Adverse Reaction (Verified 10/27/23 11:20) Unknown rosiglitazone maleate (From Avandia) Adverse Reaction (Verified 10/27/23 11:20) Swelling Medications ???Medication ???Instructions ???Recorded ???Confirmed ???Type meclizine 25 mg tablet 25 mg PO BID PRN dizziness #30 tabs 04/25/22 06/04/24 Rx amlodipine 5 mg tablet 5 mg PO DAILY #90 tabs 03/17/23 10/27/23 Rx citalopram 10 mg tablet 10 mg PO DAILY #90 tabs 03/17/23 10/27/23 Rx zolpidem 12.5 mg tablet,extended 12.5 mg PO QHS #30 tabs 03/17/23 10/27/23 Rx release,multiphase omeprazole 40 mg capsule,delayed 40 mg PO DAILY #90 caps 06/24/23 10/27/23 Rx release aripiprazole 5 mg tablet 5 mg PO QHS #90 tabs 09/23/23 10/27/23 Rx simvastatin 10 mg tablet 10 mg PO QHS #90 tabs 09/23/23 10/27/23 Rx zolpidem 10 mg tablet 10 mg PO QHS #30 tabs 09/23/23 10/27/23 Rx semaglutide 0.25 mg or 0.5 mg (2 0.25 mg (0.368 mL) subcut QWEEK #3 10/27/23 10/27/23 Rx mg/3 mL) subcutaneous pen injector mL (Ozempic) valsartan 160 1 tab PO DAILY #90 tabs 10/27/23 10/27/23 Rx mg-hydrochlorothiazid e 12.5 mg tablet PFSH Medical History History of pancreatitis Heart murmur Hyperlipemia Hypertension History of pneumonia History of basal cell cancer Osteopenia Osteoarthritis Surgical History Hx of arthroscopic knee surgery History of intestinal surgery History of cholecystectomy History of appendectomy History of gastric bypass History of bilateral knee replacement Family History Mother Hypertension Cancer GI Hyperlipemia Father Heart disease Hyperlipemia Hypertension Grandfather Hypertension Hyperlipemia Grandmother Hypertension Hyperlipemia Social History Smoking Status: Never smoker alcohol intake: current alcohol intake frequency: holidays/special occasions only substance use type: does not use what type of physical activity do you participate in: other details: very active frequency: daily HPI HPI Chief Complaint: 4 week f/u Details: ALEKSANDAR GREEN, is a 68 F who presents to the office today for a follow-up visit after starting Ozempic. She has lost 11 pounds and has had no trouble on the medication at all. ROS Const Constitutional: No body ache, chills, excessive sweating, fatigue, fever(s), frequent falls, headache(s), snoring, weakness or change in appetite Eyes Eyes: No blurry vision, change in vision, eye pain or Light sensitivity ENT ENT: No abnormal hearing, ear or mastoid pain, tinnitus, nasal congestion, headache(s), neck pain or sore throat Resp Respiratory: No cough, shortness of breath, snoring or wheezing Cardio Cardiology: No chest pain at rest, chest pain with exertion, excessive sweating, dyspnea on exertion, lightheadedness, orthopnea or palpitations Gastro GI: No abdominal pain, change in bowel habits, constipation, cramping, diarrhea, nausea/dyspepsia or vomiting Genitourinary-Female: No burning urination, painful urination, urinary incontinence or urinary frequency Musc Musculoskeletal: No abnormal gait, joint pain, back pain, limited range of motion, muscle weakness, neck pain or numbness Skin Skin: No dry skin, redness, lesions, itchy eyes, rash or wounds Neuro Neurology: No abnormal gait, abnormal hearing, weakness, frequent falls, headache(s), memory loss or numbness Psych Psychiatric: No anxiety, No change in appetite, No depression, No memory loss and No Thoughts of harming yourself/Others Endo Endocrine: No cold intolerance, excessive sweating, fatigue, flushing, heat intolerance, increased thirst/drinking o (more content not included)... Normal [facility] Basophil percentageOrdered B y: Maurice Brown on 09-23-2023 Bilirubin [Mass/Vol] 0.30 mg/dL 0.20-1.00 [facility] Comment on above: For patients on eltr ombopag therapy, use of Dimension [place] TBIL is not recommended. Chloride [Moles/Vol] 104 mmol/L 98-107 [facility] Cholesterol [Mass/Vol] 175 mg/dL <200 [facility] Comment on above: <200 mg/dL Desirable 200-240 mg/dL Borderline >240 mg/dL High Risk Glucose [Mass/Vol] 95 mg/dL 74-106 [facility] Potassium [Moles/Vol] 3.9 mmol/L 3.5-5.1 [facility] Protein [Mass/Vol] 7.1 g/dL 6.4-8.2 [facility] Sodium [Moles/Vol] 137 mmol/L 136-145 [facility] Triglyceride [Mass/Vol] 79 mg/dL <199 [facility] Comment on above: The drugs N-Acetylcy steine and Metamizole may falsely depress this assay.Serum Triglycerides Reference Interval Normal <150 mg/dL Borderline high 150 - 199 mg/dL High 200 - 499 mg/dL Very High > or = 500 mg/dL Comprehensive Metabolic Prof ilon 09-23-2023 Albumin [Mass/Vol] 3.7 g/dL Normal 3.2-5.0 [facility] Comment on above: Performed By: #### L 500.4100, L501.9985, L500.4050 #### [facility] [address] [place], [address] Albumin/Globulin [Mass ratio] 1.1 {ratio} Normal 0.9-2.4 [facility] Comment on above: Performed By: #### L 500.4100, L501.9985, L500.4050 #### [facility] [address] [place], [address] ALK P 106 U/L Normal 45-117 [facility] Comment on above: Performed By: #### L 500.4100, L501.9985, [id number] #### [facility] [address] [place], [address] ALT [Catalytic activity/Vol] 23 U/L Normal 13-56 [facility] Comment on above: Performed By: #### L 500.4100, L501.9985, [id number] #### [facility] [address] [place], [address] AST [Catalytic activity/Vol] 19 U/L Normal 15-37 [facility] Comment on above: Performed By: #### L 500.4100, L501.9985, L500.4050 #### [facility] [address] [place], [address] Bilirubin [Mass/Vol] 0.30 mg/dL Normal 0.20-1.00 [facility] Comment on above: Result Comment: For patients on eltrombopag therapy, use of Dimension [place] TBIL is not recommended. Performed By: #### L 500.4100, L501.9985, L500.4050 #### [facility] [address] [place], [address] BUN/CRE 22.5 RATIO High 10-20 [facility] Comment on above: Performed By: #### L 500.4100, L501.9985, L500.4050 #### [facility] [address] [place], [address] CA,Total 9.5 mg/dL Normal 8.5-10.1 [facility] Comment on above: Performed By: #### L 500.4100, L501.9985, L500.4050 #### [facility] [address] [place], [address] Chloride [Moles/Vol] 104 mmol/L Normal 98-107 [facility] Comment on above: Performed By: #### L 500.4100, L501.9985, L500.4050 #### [facility] [address] [place], [address] CO2 [Moles/Vol] 29.0 mmol/L Normal 21.0-32.0 [facility] Comment on above: Performed By: #### L 500.4100, L501.9985, L500.4050 #### [facility] [address] [place], [address] Creatinine [Mass/Vol] 0.71 mg/dL Normal 0.55-1.02 [facility] Comment on above: Result Comment: The validity of the calculated GFR GFRAA in patients over 70 years has not been determined. Clinical correlation is essential. Performed By: #### L 500.4100, L501.9985, L500.4050 #### [facility] [address] [place], [address] EST GFR - AA 105 mL/min Normal >60 [facility] Comment on above: Result Comment: Afri can Taiwanese GFR Calc Performed By: #### L 500.4100, L501.9985, L500.4050 #### [facility] [address] [place], [address] GAP 4 Low 5-15 [facility] Comment on above: Performed By: #### L 500.4100, L501.9985, L500.4050 #### [facility] [address] [place], [address] GFR/1.73 sq M.predicted among non-blacks MDRD (S/P/Bld) [Vol rate/Area] 87 mL/min/{1.73_m2} Normal >60 [facility] Comment on above: Result Comment: Non- GFR Calc Performed By: #### L 500.4100, L501.9985, L500.4050 #### [facility] [address] [place], [address] Globulin (S) [Mass/Vol] 3.4 g/dL Normal 2.2-4.2 [facility] Comment on above: Performed By: #### L 500.4100, L501.9985, L500.4050 #### [facility] [address] [place], [address] Glucose [Mass/Vol] 95 mg/dL Normal 74-106 [facility] Comment on above: Performed By: #### L 500.4100, L501.9985, L500.4050 #### [facility] [address] [place], [address] Potassium [Moles/Vol] 3.9 mmol/L Normal 3.5-5.1 [facility] Comment on above: Performed By: #### L 500.4100, L501.9985, L500.4050 #### [facility] [address] [place], [address] Sodium [Moles/Vol] 137 mmol/L Normal 136-145 [facility] Comment on above: Performed By: #### L 500.4100, L501.9985, L500.4050 #### [facility] [address] [place], [address] T PROT 7.1 g/dL Normal 6.4-8.2 [facility] Comment on above: Performed By: #### L 500.4100, L501.9985, L500.4050 #### [facility] [address] [place], [address] Urea nitrogen [Mass/Vol] 16 mg/dL Normal 7-18 [facility] Comment on above: Performed By: #### L 500.4100, L501.9985, L500.4050 #### [facility] [address] [place], [address] Hemoglobin A1con 09-23-2023 HbA1c (Bld) [Mass fraction] 5.6 % Normal 3.8-5.6 [facility] Comment on above: Result Comment: Norm al < 5.7 % Prediabetic 5.7 - 6.4 % Diabetic >or= 6.5 % Please note range changes. Performed By: #### L 500.4100, L501.9985, L500.4050 #### [facility] [address] [place], [address] Internal Medicine Office Vis everardo 09-23-2023 Internal Medicine Office Visit [facility] [address] [place] [address] [place] [address] OFFICE VISIT Date of Service: 09/23/23 MR#: [id number] Acct: [id number] Name: ALEKSANDAR GREEN Rep #: [id number] : 1955 Provider: Dr. Maurice rodriguez, DO Age/Sex: 68/F Location: [facility] [place] Status: Signed Intake Vital Signs 06/24/23 10:28 09/23/23 10:02 Height 5 ft 2 in 5 ft 2 in Weight: 206 lb 2 oz 208 lb BMI 37.7 38.0 BP 126/76 H 132/80 H Blood Pressure Location Lt brachial Lt brachial Position Sitting Sitting Respiration 15 17 Pulse 87 81 Pulse Source Monitor Monitor Temp 97.9 F 98.0 F Temp Source Temporal Temporal Pulse Oximetry (%) 96 96 Oxygen Delivery Method room air room air Intake Visit Reasons: 3 M FU Chief Complaint: 3 M FU Is patient in pain?: No Allergies Penicillins [PCN] Allergy (Verified 09/23/23 10:02) Unknown Sulfa (Sulfonamide Antibiotics) Allergy (Verified 09/23/23 10:02) Unknown erythromycin base [Erythromycin Base] Adverse Reaction (Verified 09/23/23 10:02) Unknown rosiglitazone maleate [From Avandia] Adverse Reaction (Verified 09/23/23 10:02) Swelling Medications meclizine 25 mg tablet 25 mg PO BID PRN dizziness #30 tabs 09/16/21 [Rx Confirmed 09/23/23] valsartan 160 mg-hydrochlorothiazid e 12.5 mg tablet 1 tab PO DAILY #90 tabs 10/22/22 [Rx Confirmed 09/23/23] amlodipine 5 mg tablet 5 mg PO DAILY #90 tabs 03/17/23 [Rx Confirmed 09/23/23] citalopram 10 mg tablet 10 mg PO DAILY #90 tabs 03/17/23 [Rx Confirmed 09/23/23] zolpidem 12.5 mg tablet,extended release,multiphase 12.5 mg PO QHS #30 tabs 03/17/23 [Rx Confirmed 09/23/23] omeprazole 40 mg capsule,delayed release 40 mg PO DAILY #90 caps 06/24/23 [Rx Confirmed 09/23/23] aripiprazole 5 mg tablet 5 mg PO QHS #90 tabs 09/23/23 [Rx Confirmed 09/23/23] hydrocodone-acetamino phen 5-325mg 5mg-325mg 1 tab PO Q8H PRN pain 4 weeks #30 tabs 09/23/23 [Rx Confirmed 09/23/23] simvastatin 10 mg tablet 10 mg PO QHS #90 tabs 09/23/23 [Rx Confirmed 09/23/23] zolpidem 10 mg tablet 10 mg PO QHS #30 tabs 09/23/23 [Rx Confirmed 09/23/23] PFSH Medical History Heart murmur History of basal cell cancer History of pancreatitis History of pneumonia Hyperlipemia Hypertension Osteoarthritis Osteopenia Surgical History History of appendectomy History of bilateral knee replacement History of cholecystectomy History of gastric bypass History of intestinal surgery Hx of arthroscopic knee surgery Family History Mother Hypertension Cancer GI Hyperlipemia Father Heart disease Hyperlipemia Hypertension Grandfather Hypertension Hyperlipemia Grandmother Hypertension Hyperlipemia Social History Smoking Status: Never smoker alcohol intake: current alcohol intake frequency: holidays/special occasions only substance use type: does not use what type of physical activity do you participate in: other details: very active frequency: daily HPI HPI Chief Complaint: 3 M FU Details: ALEKSANDAR GREEN, is a 68 F who presents to the office today for medication refills. She would also like to start Ozempic for weight loss even though she knows her insurance probably will not cover it. She was due to have some annual blood work today so I will include an A1c on the slight chance that she would qualify to take Ozempic for hyperglycemia. In general she is doing well she has occasional episodes of severe neck pain which she takes Cardinal for but they are very rare and her consumption of Cardinal is drastically been reduced. ROS Const Constitutional: No body ache, chills, excessive sweating, fatigue, fever(s), frequent falls, headache(s), snoring, weight change, sleep problems, abnormal sleep pattern or change in appetite Eyes Eyes: No blurry vision, change in vision, eye pain or Light sensitivity ENT ENT: No abnormal hearing, ear or mastoid pain, tinnitus, nasal congestion, headache(s), neck pain or sore throat Resp Respiratory: No cough, shortness of breath, snoring or wheezing Cardio Cardiology: No chest pain at rest, chest pain with exertion, excessive sweating, shortness of breath, dyspnea on exertion, lightheadedness, orthopnea or palpitations Gastro GI: No abdominal pain, change in bowel habits, constipation, cramping, diarrhea, nausea/dyspepsia or vomiting Genitourinary-Female: No burning urination, painful urination, urinary incontinence, urinary frequency, abnormal vaginal bleeding or pelvic pain Musc Musculoskeletal: No abnormal gait, joint pain, back pain, limited range of motion, neck pain, numbness or tingling Skin Skin: No dry skin, redness, lesions, itch (more content not included)... Normal [facility] - Chemistry and C hemistry - challengeOrdered By: Maurice Salinas on 09-23-2023 Albumin/Globulin [Mass ratio] 1.1 {ratio} 0.9-2.4 [facility] ALP [Catalytic activity/Vol] 106 U/L 45-117 [facility] ALT [Catalytic activity/Vol] 23 U/L 13-56 [facility] Cholesterol in HDL [Mass/Vol] 77 mg/dL >40 [facility] Comment on above: The drugs N-Acetylcy steine and Metamizole may falsely depress this assay. Reference Range HDL <40 mg/dL Low HDL Cholesterol HDL >or= 60 mg/dL High HDL Cholesterol Cholesterol in LDL [Mass/Vol] 82 mg/dL 0-130 [facility] CO2 [Moles/Vol] 29.0 mmol/L 21.0-32.0 [facility] Globulin (S) [Mass/Vol] 3.4 g/dL 2.2-4.2 [facility] Urea nitrogen/Creatinine [Mass ratio] 22.5 mg/mg 10-20 [facility] Lipid Profileon 09-23-2023 Cholesterol [Mass/Vol] 175 mg/dL Normal 200 [facility] Comment on above: Result Comment: <200 mg/dL Desirable 200-240 mg/dL Borderline >240 mg/dL High Risk Performed By: #### L 500.4100, L501.9985, L500.4050 #### [facility] [address] [place], [address] Cholesterol in HDL [Mass/Vol] 77 mg/dL Normal [facility] Comment on above: Result Comment: The drugs N-Acetylcysteine and Metamizole may falsely depress this assay. Reference Range HDL <40 mg/dL Low HDL Cholesterol HDL >or= 60 mg/dL High HDL Cholesterol Performed By: #### L 500.4100, L501.9985, L500.4050 #### [facility] [address] [place], [address] Cholesterol in LDL [Mass/Vol] 82 mg/dL Normal 0-130 [facility] Comment on above: Performed By: #### L 500.4100, L501.9985, L500.4050 #### [facility] [address] [place], [address] Cholesterol in VLDL [Mass/Vol] 16 mg/dL Normal 5-40 [facility] Comment on above: Performed By: #### L 500.4100, L501.9985, L500.4050 #### [facility] [address] [place], [address] Triglyceride [Mass/Vol] 79 mg/dL Normal [facility] Comment on above: Result Comment: The drugs N-Acetylcysteine and Metamizole may falsely depress this assay. Serum Triglycerides Reference Interval Normal <150 mg/dL Borderline high 150 - 199 mg/dL High 200 - 499 mg/dL Very High > or = 500 mg/dL Performed By: #### L 500.4100, L501.9985, L500.4050 #### [facility] [address] [place], [address] No Panel InformationOrdered By: Maurice Salinas on 09-23-2023 Estimated GFR (MDRD) Amer 105 mL/min >60 [facility] Comment on above: GFR Calc Estimated GFR (MDRD) Non-Af Amer 87 mL/min >60 [facility] Comment on above: Non- GFR Calc VLDL Cholesterol 16 mg/dL 5-40 [facility] Serum or plasma calcium blanca urement (mass/volume)Ordered By: Maurice Salinas on 09-23-2023 Calcium [Mass/Vol] 9.5 mg/dL 8.5-10.1 [facility] Serum or plasma creatinine m easurement (mass/volume)Ordered By: Maurice Salinas on 09-23-2023 Creatinine [Mass/Vol] 0.71 mg/dL 0.55-1.02 [facility] Comment on above: The validity of the calculated GFR & GFRAA in patients over 70 years has not been determined. Clinical correlation is essential. Serum or plasma urea nitroge n measurement (mass/volume)Ordered By: Maurice Salinas on 09-23-2023 Urea nitrogen [Mass/Vol] 16 mg/dL 7-18 [facility] Thin prep Papanicolaou smear with manual screeningOrdered By: Maurice Salinas on 09-23-2023 Thin prep Papanicolaou smear with manual screening 3.7 g/dL 3.2-5.0 [facility] Thin prep Papanicolaou smear with manual screening 19 U/L 15-37 [facility] Thin prep Papanicolaou smear with manual screening 4 5-15 [facility] Whole blood hemoglobin A1c/t otal hemoglobin ratio (mass fraction)Ordered By: Maurice Salinas on 09-23-2023 HbA1c (Bld) [Mass fraction] 5.6 % 3.8-5.6 [facility] Comment on above: Normal < 5.7 % Predi abetic 5.7 - 6.4 % Diabetic >or= 6.5 % Please note range changes. Internal Medicine Office Vis itojen 06-24-2023 Internal Medicine Office Visit [facility] [address] [place] [address] [place] [address] OFFICE VISIT Date of Service: 06/24/23 MR#: [id number] Acct: [id number] Name: ALEKSANDAR GREEN Rep #: [id number] : 1955 Provider: Dr. Maurice Mcginnis own, DO Age/Sex: 68/F Location: [facility] [place] Status: Signed Intake Vital Signs 03/17/23 09:31 06/24/23 10:28 Height 5 ft 2 in 5 ft 2 in Weight: 208 lb 206 lb 2 oz BMI 38.0 37.7 BP 118/66 126/76 H Blood Pressure Location Rt brachial Lt brachial Position Sitting Sitting Respiration 16 15 Pulse 74 87 Pulse Source Monitor Monitor Temp 97.9 F 97.9 F Temp Source Temporal Temporal Pulse Oximetry (%) 96 96 Oxygen Delivery Method room air room air Intake Visit Reasons: 3 M FU Chief Complaint: 3 M FU Pin Cleaner Required: No Accompanied by: Self Is patient in pain?: No Allergies Penicillins [PCN] Allergy (Verified 06/24/23 10:25) Unknown Sulfa (Sulfonamide Antibiotics) Allergy (Verified 06/24/23 10:25) Unknown erythromycin base [Erythromycin Base] Adverse Reaction (Verified 06/24/23 10:25) Unknown rosiglitazone maleate [From Avandia] Adverse Reaction (Verified 06/24/23 10:25) Swelling Medications meclizine 25 mg tablet 25 mg PO BID PRN dizziness #30 tabs 09/16/21 [Rx Confirmed 06/24/23] valsartan 160 mg-hydrochlorothiazid e 12.5 mg tablet 1 tab PO DAILY #90 tabs 10/22/22 [Rx Confirmed 06/24/23] amlodipine 5 mg tablet 5 mg PO DAILY #90 tabs 03/17/23 [Rx Confirmed 06/24/23] aripiprazole 5 mg tablet 5 mg PO QHS #90 tabs 03/17/23 [Rx Confirmed 06/24/23] citalopram 10 mg tablet 10 mg PO DAILY #90 tabs 03/17/23 [Rx Confirmed 06/24/23] zolpidem 12.5 mg tablet,extended release,multiphase 12.5 mg PO QHS #30 tabs 03/17/23 [Rx Confirmed 06/24/23] zolpidem 10 mg tablet 10 mg PO QHS #30 tabs 06/09/23 [Rx Confirmed 06/24/23] omeprazole 40 mg capsule,delayed release 40 mg PO DAILY #90 caps 06/24/23 [Rx Confirmed 01/31/24] simvastatin 10 mg tablet 10 mg PO QHS #90 tabs 06/24/23 [Rx Confirmed 06/24/23] PFSH Medical History Heart murmur History of basal cell cancer History of pancreatitis History of pneumonia Hyperlipemia Hypertension Osteoarthritis Osteopenia Surgical History History of appendectomy History of bilateral knee replacement History of cholecystectomy History of gastric bypass History of intestinal surgery Hx of arthroscopic knee surgery Family History Mother Hypertension Cancer GI Hyperlipemia Father Heart disease Hyperlipemia Hypertension Grandfather Hypertension Hyperlipemia Grandmother Hypertension Hyperlipemia Social History Smoking Status: Never smoker alcohol intake: current alcohol intake frequency: holidays/special occasions only substance use type: does not use what type of physical activity do you participate in: other details: very active frequency: daily HPI HPI Chief Complaint: 3 M FU Details: ALEKSANDAR GREEN, is a 68 F who presents to the office today for ROS Const Constitutional: No body ache, chills, excessive sweating, fatigue, fever(s), frequent falls, headache(s), snoring, weakness or change in appetite Eyes Eyes: No blurry vision, change in vision, eye pain or Light sensitivity ENT ENT: No abnormal hearing, ear or mastoid pain, tinnitus, nasal congestion, headache(s), neck pain or sore throat Resp Respiratory: No cough, shortness of breath, snoring or wheezing Cardio Cardiology: No chest pain at rest, chest pain with exertion, excessive sweating, dyspnea on exertion, lightheadedness, orthopnea or palpitations Gastro GI: No abdominal pain, change in bowel habits, constipation, cramping, diarrhea, nausea/dyspepsia or vomiting Genitourinary-Female: No burning urination, painful urination, urinary incontinence or urinary frequency Musc Musculoskeletal: No abnormal gait, joint pain, back pain, limited range of motion, muscle weakness, neck pain or numbness Skin Skin: No dry skin, redness, lesions, itchy eyes, rash or wounds Neuro Neurology: No abnormal gait, abnormal hearing, weakness, frequent falls, headache(s), memory loss or numbness Psych Psychiatric: No anxiety, No change in appetite, No depression, No memory loss and No Thoughts of harming yourself/Others Endo Endocrine: No cold intolerance, excessive sweating, fatigue, flushing, heat intolerance, increased thirst/drinking or increased hunger Aller/Imm Allergy/Immunologic: No itchy eyes, seasonal allergy symptoms, hives or wheezing Abhilash/Lymp Hematologic/Lymphatic : No easy bleeding or easy bruising Exam Const General: cooperative and no acute distress HENMT Head: nor (more content not included)... Normal [facility] Basophil percentageon 2022 Chloride [Moles/Vol] 109 mmol/L 98-107 [facility] Glucose [Mass/Vol] 86 mg/dL 74-106 [facility] Potassium [Moles/Vol] 4.0 mmol/L 3.5-5.1 [facility] Sodium [Moles/Vol] 139 mmol/L 136-145 [facility] Laboratory - Chemistry and C hemistry - challengeon 08-25-2022 CO2 [Moles/Vol] 26.0 mmol/L 21.0-32.0 [facility] Urea nitrogen/Creatinine [Mass ratio] 31.9 mg/mg 10-20 [facility] No Panel Informationon 08-25 Estimated GFR (MDRD) Amer 109 mL/min >60 [facility] Comment on above: GFR Calc Estimated GFR (MDRD) Non-Af Amer 90 mL/min >60 [facility] Comment on above: Non- GFR Calc Serum or plasma calcium blanca urement (mass/volume)on 08-25-2022 Calcium [Mass/Vol] 9.1 mg/dL 8.5-10.1 [facility] Serum or plasma creatinine m easurement (mass/volume)on 08-25-2022 Creatinine [Mass/Vol] 0.69 mg/dL 0.55-1.02 [facility] Comment on above: The validity of the calculated GFR & GFRAA in patients over 70 years has not been determined. Clinical correlation is essential. Serum or plasma urea nitroge n measurement (mass/volume)on 08-25-2022 Urea nitrogen [Mass/Vol] 22 mg/dL 7-18 [facility] Thin prep Papanicolaou smear with manual screeningon 08-25-2022 Thin prep Papanicolaou smear with manual screening 4 5-15 [facility] Basophil percentageon 2021 Bilirubin [Mass/Vol] 0.40 mg/dL 0.20-1.00 [facility] Work Phone: Comment on above: For patients on eltr ombopag therapy, use of Dimension [place] TBIL is not recommended. Chloride [Moles/Vol] 104 mmol/L 98-107 [facility] Work Phone: [phone] Glucose [Mass/Vol] 84 mg/dL 74-106 [facility] Work Phone: Potassium [Moles/Vol] 5.2 mmol/L 3.5-5.1 [facility] Work Phone: Protein [Mass/Vol] 6.9 g/dL 6.4-8.2 [facility] Work Phone: [phone] Sodium [Moles/Vol] 138 mmol/L 136-145 [facility] Work Phone: Laboratory - Chemistry and C hemistry - challengeon 05-06-2022 ALP [Catalytic activity/Vol] 93 U/L 45-117 [facility] Work Phone: ALT [Catalytic activity/Vol] 24 U/L 13-56 [facility] Work Phone: CO2 [Moles/Vol] 28.0 mmol/L 21.0-32.0 [facility] Work Phone: [phone] Globulin (S) [Mass/Vol] 2.8 g/dL 2.2-4.2 [facility] Work Phone: Urea nitrogen/Creatinine [Mass ratio] 25.0 mg/mg 10-20 [facility] Work Phone: No Panel Informationon 05-06 Estimated GFR (MDRD) Amer 111 mL/min >60 [facility] Work Phone: Comment on above: GFR Calc Estimated GFR (MDRD) Non-Af Amer 92 mL/min >60 [facility] Work Phone: Comment on above: Non- GFR Calc Serum or plasma albumin blanca urement (mass/volume)on 05-06-2022 Albumin [Mass/Vol] 4.1 g/dL 3.2-5.0 [facility] Work Phone: Serum or plasma albumin/glob ulin mass ratioon 05-06-2022 Albumin/Globulin [Mass ratio] 1.5 {ratio} 0.9-2.4 [facility] Work Phone: Serum or plasma calcium blanca urement (mass/volume)on 05-06-2022 Calcium [Mass/Vol] 9.3 mg/dL 8.5-10.1 [facility] Work Phone: Serum or plasma creatinine m easurement (mass/volume)on 05-06-2022 Creatinine [Mass/Vol] 0.68 mg/dL 0.55-1.02 [facility] Work Phone: Comment on above: The validity of the calculated GFR & GFRAA in patients over 70 years has not been determined. Clinical correlation is essential. Serum or plasma urea nitroge n measurement (mass/volume)on 05-06-2022 Urea nitrogen [Mass/Vol] 17 mg/dL 7-18 [facility] Work Phone: Thin prep Papanicolaou smear with manual screeningon 05-06-2022 Thin prep Papanicolaou smear with manual screening 18 U/L 15-37 [facility] Work Phone: Thin prep Papanicolaou smear with manual screening 6 5-15 [facility] Work Phone: Absolute lymphocyte counton 08-15-2021 Lymphocytes Auto (Unsp spec) [#/Vol] 2.23 10*3/uL 0.83-4.51 [facility] Work Phone: Basophil percentageon 2021 Basophil percentage 4.2 mg/dL 2.5-4.9 [facility] Work [facility]: Basophils/100 WBC (Bld) 0.6 % 0-1 [facility] Work Phone: Chloride [Moles/Vol] 105 mmol/L 98-107 [facility] Work Phone: Eosinophils/100 WBC (Bld) 4.5 % 0-5 [facility] Work Phone: Glucose [Mass/Vol] 99 mg/dL 74-106 [facility] Work [facility]: Neutrophils (Bld) [#/Vol] 4.0 10*3/uL 2.0-7.7 [facility] Work Phone: Neutrophils/100 WBC (Bld) 55.6 % 47-70 [facility] Work Phone: [phone] Potassium [Moles/Vol] 4.0 mmol/L 3.5-5.1 [facility] Work Phone: Sodium [Moles/Vol] 138 mmol/L 136-145 [facility] Work Phone: WBC (Bld) [#/Vol] 7.2 10*3/uL 4.4-11.0 [facility] Work Phone: [phone] Blood erythrocytes count (nu mber/volume)on 08-15-2021 RBC (Bld) [#/Vol] 4.42 10*6/uL 4.2-5.4 [facility] Work Phone: Blood hemoglobin measurement (mass/volume)on 08-15-2021 Hemoglobin (Bld) [Mass/Vol] 13.0 g/dL 12.0-15.0 [facility] Work Phone: Blood lymphocytes/100 leukoc yteson 08-15-2021 Lymphocytes/100 WBC (Bld) 31.1 % 19-41 [facility] Work Phone: Blood monocytes/100 leukocyt eson 08-15-2021 Monocytes/100 WBC (Bld) 7.9 % 0-10 [facility] Work Phone: Blood platelet mean volumeon 08-15-2021 Platelet mean volume (Bld) [Entitic vol] 9.9 fL 6.2-12.0 [facility] Work Phone: Determination of erythrocyte mean corpuscular volume (MCV)on 08-15-2021 MCV (RBC) [Entitic vol] 91.4 fL 81-99 [facility] Work Phone: Erythrocyte sedimentation ra carrie 08-15-2021 ESR (Bld) [Velocity] 6 mm/h 0-30 [facility] Work Phone: Hematocrit Auto (Bld) [Volum e fraction]on 08-15-2021 Hematocrit (Bld) [Volume fraction] 40.4 % 37-47 [facility] Work Phone: Laboratory - Chemistry and C hemistry - challengeon 08-15-2021 CO2 [Moles/Vol] 29.0 mmol/L 21.0-32.0 [facility] Work Phone: Urea nitrogen/Creatinine [Mass ratio] 23.1 mg/mg 10-20 [facility] Work Phone: Laboratory - Hematology and Cell countson 08-15-2021 Erythrocyte distribution width (RBC) [Entitic vol] 46.3 fL 35.1-43.9 [facility] Work Phone: Erythrocyte distribution width (RBC) [Ratio] 13.7 % 11.6-14.6 [facility] Work Phone: Immature granulocytes/100 WBC (Bld) 0.300 % 0.0-0.9 [facility] Work Phone: Comment on above: IG% - Immature Granu locytes (promyelocytes, myelocytes and metamyelocytes) > 1% indicates that a LEFT SHIFT is Present. MCH (RBC) [Entitic mass] 29.4 pg 27.0-32.0 [facility] Work Phone: Nucleated RBC/100 WBC (Bld) [Ratio] 0 % 0-5 [facility] Work Phone: MCHC Auto (RBC) [Mass/Vol]on 08-15-2021 MCHC (RBC) [Mass/Vol] 32.2 g/dL 32-36 [facility] Work Phone: No Panel Informationon 08-15 Estimated GFR (MDRD) Amer 53 mL/min >60 [facility] Work Phone: Comment on above: GFR Calc Estimated GFR (MDRD) Non-Af Amer 44 mL/min >60 [facility] Work Phone: Comment on above: Non- GFR Calc Platelets bldon 08-15-2021 Platelets (Bld) [#/Vol] 245 10*3/uL 150-450 [facility] Work Phone: Serum or plasma C reactive p rotein measurement (mass/volume)on 08-15-2021 CRP [Mass/Vol] mg/L 0.0-3.0 [facility] Work Phone: Comment on above: C-Reactive Protein ( CRP) provides useful information for thediagnosis, therapy and monitoring of inflammatory processesand associated diseases. For the evaluation of Relative Riskfor Cardiovascular Disease, a High Sensitivity CRP (HSCRP)should be ordered. Serum or plasma albumin blanca urement (mass/volume)on 08-15-2021 Albumin [Mass/Vol] 3.8 g/dL 3.2-5.0 [facility] Work Phone: Serum or plasma calcium blanca urement (mass/volume)on 08-15-2021 Calcium [Mass/Vol] 8.9 mg/dL 8.5-10.1 [facility] Work Phone: Serum or plasma creatinine m easurement (mass/volume)on 08-15-2021 Creatinine [Mass/Vol] 1.30 mg/dL 0.55-1.02 [facility] Work Phone: Comment on above: The validity of the calculated GFR & GFRAA in patients over 70 years has not been determined. Clinical correlation is essential. Serum or plasma urea nitroge n measurement (mass/volume)on 08-15-2021 Urea nitrogen [Mass/Vol] 30 mg/dL 12-09 [facility] Work Phone: OR Nursingon 09-11-2020 OR Nursing CO [facility]CE OR Nursing Record Summary Primary Physician: Son Tena MD Finalized Date/Time: 09/11/20 12:42:41 Pt. Name: ALEKSANDAR GREEN /Sex: 1955 Female Med Rec #: [id number] Physician: Son Tena MD Financial #: [id number] Pt. Type: I Room/Bed: [address] [place] [address] Admit/Disch: 09/06/20 21:34:00 - 09/10/20 18:20:00 Institution: [facility] OR Case Times Entry 1 Patient Times Patient In Room 09/07/20 07:27:00 Patient Out Room 09/07/20 09:03:00 Surgical Times Start Time 09/07/20 07:53:00 Stop Time 09/07/20 08:53:00 Last Modified By: Raquel Andrea RN 09/07/20 09:03:08 CO [facility] OR Case Attendees Entry 1 Entry 2 Entry 3 Case Attendee Son Tena MD, MD, Raquel Millan RN Role Performed Primary Surgeon Anesthesiologist blood bank business manager Time In 09/07/20 07:27:00 09/07/20 07:27:00 09/07/20 07:27:00 Time Out 09/07/20 09:03:00 09/07/20 09:03:00 09/07/20 09:03:00 Procedure Incision Drainage Incision Drainage Incision Drainage Knee(Left), Revision Knee(Left), Revision Knee(Left), Revision Knee Poly Exchange(Left) Knee Poly Exchange(Left) Knee Poly Exchange(Left) Attendee Comment Relief Reason Last Modified By: Leonel ANTUNEZ , Mildred Castaneda RN , Mildred Castaneda RN , Mildred Walsh 09/08/20 09:00:11 09/08/20 09:00:11 09/08/20 09:00:11 Entry 4 Entry 5 Entry 6 Case Attendee Rajendra ANTUNEZ , Elpidio Spencer Case, Attendee Other A Role Performed RN Scrub Fixed Wing Aircraft Flight Mechanic Fixed Wing Aircraft Flight Mechanic Time In 09/07/20 07:27:00 09/07/20 07:27:00 09/07/20 07:27:00 Time Out 09/07/20 09:03:00 09/07/20 09:03:00 09/07/20 09:03:00 Procedure Incision Drainage Incision Drainage Incision Drainage Knee(Left), Revision Knee(Left), Revision Knee(Left), Revision Knee Poly Exchange(Left) Knee Poly Exchange(Left) Knee Poly Exchange(Left) Attendee Comment Elizabeth Roblero Relief Reason Last Modified By: Leonel ANTUNEZ , Mildred Castaneda RN , Mildred Winchester RN 09/08/20 09:00:11 09/08/20 09:00:11 09/08/20 09:00:11 Entry 7 Case Attendee Case, Attendee Other Role Performed Online User Experience Strategist Time In 09/07/20 07:27:00 Time Out 09/07/20 09:03:00 Procedure Incision Drainage Knee(Left), Revision Knee Poly Exchange(Left) Attendee Comment Anna Severino DePdoroteo Relief Reason Last Modified By: Mildred Castaneda RN 09/08/20 09:00:11 CO MCE OR General Case Paper Cup Machine Tender 1 OR CO E 03 ASA Class 2 Case Wound Class Contaminated Specialty Orthopedic Surgery Case Level Ortho Complex Procedure r/t No Traumatic Injury (blunt or penetrating) Diagnosis Preop Diagnosis infected left knee Postop Same As Preop Yes Postop Diagnosis infected left knee This is a down time No record. Last Modified By: Mildred Castaneda RN 09/11/20 12:42:37 General Comments: 09/08/20case level changed from ORTHO MAJOR based on procedures performed toño castaneda rn nurse lag screwer CO MCE OR Surgical Procedures Entry 1 Entry 2 Procedure Incision Drainage Knee Revision Knee Poly Exchange Primary Procedure No Yes Modifiers Left Left Procedure Wound Contaminated Contaminated Class Primary Surgeon Darinel ALFARO , Son Tena MD , Son Nova Surgical Service Orthopedic Surgery Orthopedic Surgery Anesthesia Type General General Procedure Performed Irrigation, debridement Irrigation, debridement and poly exchange, and poly exchange, infected left total infected left total knee arthroplasty knee arthroplasty Start 09/07/20 07:53:00 09/07/20 07:53:00 Stop 09/07/20 08:53:00 09/07/20 08:53:00 Last Modified By: Mildred Castaneda RN, RN, Sharon L 09/11/20 12:39:46 09/11/20 12:39:46 CO M[facility] OR Patient Positioning Entry 1 Abdomen Pre Soft Skin Condition Warm, Dry, Intact Procedure Before Body Position Supine Pressure Points Yes Assessed? Right Arm Position On armboard Left Arm Position On armboard Arm Secured Right, Left Positioning Device Blankets, Knee positioner Right Leg Position Straight Left Leg Position Straight Safety Strap Applied Yes Safety Strap Abdomen Location Positioned By Darinel ALFARO , Son Nova, Procedure Incision Drainage Rebecca ALFARO, Emre Etienne Knee(Left), Raquel Koenig RN, Knee Poly Exchange(Left) Martina Drew RN Last Modified By: Mildrde Castaneda RN 09/08/20 09:00:14 [facility] OR Antithrombolytic Devices Entry 1 IPC PARISA Hose PARISA Hose Right PARISA Size Thigh Bariatric No Foot Pump Last Modified By: Raquel Andrea RN 09/07/20 08:09:06 [facility] OR Tourniquet Entry 1 Site Thigh left Applied By Son Tena MD Padding Webroll/Softroll Cuff Size 34 Inch Unit ID Number [id number] Setting 300 mmHg Inflated 09/07/20 07:53:00 Deflated 09/07/20 08:55:00 Last Modified By: Raquel Andrea RN 09/07/20 08:54:53 [facility] OR Skin Prep Entry 1 Hair Removal Method None Skin Prep Prep Agents Chlorhexidine Gluconate Prep Site Left Thigh to Toes, 2% w Alcohol Circ (more content not included)... Normal [facility] Basic metabolic 2000 panelon 09-10-2020 Anion gap [Moles/Vol] 3.0 mmol/L Low 6.0-18.0 Jimena [facility] Comment on above: Performed By: #### 1 9123-9, 21907-7 ####[facility] [address] [place], [place] Calcium [Mass/Vol] 9.0 mg/dL Normal 8.9-10.3 [facility] Comment on above: Performed By: #### 1 9123-01, 87306-9 ####[facility] [address] [place], [place] Chloride [Moles/Vol] 102 mmol/L Normal 98-107 Moun [facility] Comment on above: Performed By: #### 1 9123-01, 54836-0 ####[facility] [address] [place], [place] CO2 [Moles/Vol] 31 mmol/L Normal 22-32 [facility] Comment on above: Performed By: #### 1 9123-01, 39856-6 ####[place] [address] [place], [place] Creatinine [Mass/Vol] 0.65 mg/dL Normal 0.60-1.30 Jimena [facility] Comment on above: Performed By: #### 1 9123-01, 49350-5 ####[address] Glucose [Mass/Vol] 97 mg/dL Normal 70-99 [facility] Comment on above: Result Comment: U pdated ADA Reference Range A normal fasting glucose concentration is less than 100 mg/dL. An impaired fasting glucose concentration is 100-125 mg/dL. A provisional diagnosis of diabetes mellitus can be made when a fasting glucose concentration is greater than 125 mg/dL. Performed By: #### 1 9123-01, 12476-6 ####[facility] [address] [place], [place] Potassium [Moles/Vol] 4.4 mmol/L Normal 3.6-5.1 Jimena [facility] Comment on above: Performed By: #### 1 9123-01, 36199-0 ####[facility] [address] [place], [place] Sodium [Moles/Vol] 136 mmol/L Normal 136-145 [facility] Comment on above: Performed By: #### 1 9123-01, 85982-6 ####[facility] [address] [place], [place] Urea nitrogen (BldV) [Mass/Vol] 13 mg/dL Normal 8-20 [facility] Comment on above: Performed By: #### 1 9123-9, 75310-1 ####[facility] [address] [place], [place] Magnesium Levelon 09-10-2020 Magnesium [Mass/Vol] 2.0 mg/dL Normal 1.8-2.5 [facility] Comment on above: Performed By: #### 1 9123-9, 46770-4 ####[facility] [address] [place], [place] Patient Summaryon 09-10-2020 Patient Summary PATIENT DISCHARGE INSTRUCTIONS If you are having an emergency and are not able to reach your physician, CALL 911 or go to the nearest emergency room and take this document with you. [facility] 09/10/20 17:59 [address] [place]. [address] PATIENT INFORMATION Name: ALEKSANDAR GREEN Address: [address] [place] [id number] Age: 65 Years Phone: [phone] : 1955 12:00 MRN: [id number] Sex: Female Race: White Ethnicity: Not Hispan/Lat Admitted From: [facility] Medical Service: Orthopedic Surgery Nurse Unit/Bed: ([place]) 3T 0351-01 Admit Date: 09/06/2020 21:34 PCP: Physician, PCP Unknown PHYSICIANS INVOLVED WITH CARE ------ Attending Physicians: Son Tena MD R - Orthopaedic Surg Admitting Physician: Son Tena MD R - Orthopaedic Surg Primary Care Physician:Physician, PCP Unknown,Family Practice,,, - Consults: Jayro ALFARO , Abdias Rodriguez - Infectious Disease Ambika ALFARO, Nick Patel - Internal Medicine FOLLOW-UP APPOINTMENTS: Provider: Specialty: Address: Date: Son Tena MD Orthopaedic Surg [address] [facility] [address] (1) 09/20/20 03:45 pm Comment: Please arrive 10 minutes early and bring your photo ID and insurance cards. Provider: Specialty: Address: Date: Abdias Dial MD Infectious Disease [address] [facility] [address] (1) Call for an Appointment Comment: 1) call soon for an appointment with Dr. Dial in 4-5 weeks, 2) you will be on IV antibiotic for 6 to 8 weeks 3) every Thursday the nursing staff will collect blood work (CBC,SR,CRP,Creat) and fax to Dr. Dial ([phone]), 4) call sooner for fever, chills, nausea, vomiting, diarrhea, rash, pain in your PICC arm or worsening condtion of your wound. Provider: Specialty: Address: Date: [employer] [address] [facility] [address] [place] [address] Office: [phone] 1 to 2 days ALLERGIES: NSAIDs : Reaction:Bleeding sulfa drugs : Reaction:Unknown penicillins : Reaction:Unknown MEASUREMENTS: Last Charted: Weight: 69.00 kg /152 lbs 2 oz ( 09/06/20 20:58:00 ) MEDICATIONS For: ALEKSANDAR GREEN This is your list of medication(s). Keep it with you at all times. Your doctor may have changed doses, add, held or stopped some of your medications. Please share this information with your family doctor. Carry this list of medications with you in case of an emergency. Update it when medications are stopped, doses are changed, or new medications (including cowy-vev-hoenueo products) are added. Ask your doctor if you have any questions. THESE ARE THE MEDICATIONS YOU SHOULD BE TAKING acetaminophen-HYDROco done (acetaminophen-HYDROc odone 325 mg-5 mg oral tablet) 2 Tab(s) By Mouth every 4 hours as needed Pain - Moderate. Dr. Tena has called this into your home pharmacy from the office.. BuPROPion (Wellbutrin XL 150 mg) 1 Tab(s) By Mouth Bedtime. CeFAZolin (ceFAZolin 2 g/50 mL intravenous solution) 2g Intravenous every 8 hours for 42 Days. Refills: 0. cholecalciferol (Vitamin D3 2000 intl units oral capsule) 1 Capsule By Mouth Bedtime. citalopram (Citalopram 10 mg oral tablet) 1 Tab(s) By Mouth Bedtime. meclizine (meclizine 25 mg oral tablet) 1 Tab(s) By Mouth Twice a day as needed Dizziness. multivitamin 1 Tab(s) By Mouth Bedtime. multivitamin (Vitamin B Complex oral tablet, extended release) 1 Tab(s) By Mouth Bedtime. omeprazole (omeprazole 40 mg oral delayed release capsule) 1 Capsule By Mouth Bedtime. simvastatin (simvastatin 10 mg oral tablet) 1 Tab(s) By Mouth Bedtime. sodium chloride (sodium chloride 0.9% injectable kit) 20 Milliliter IV Push As Needed as needed See Comments. Dispense quantity sufficient to flush picc line with antibiotic therapy per protocol.. Refills: 0. zolpidem (Ambien CR 12.5 mg oral tablet, extended release) 1 Tab(s) By Mouth Bedtime as needed Insomnia/Sleep. MEDICATION CHANGE DETAILS (Not your Final Home Medication List) During the course of your visit, your home medication list was updated with the most current information. The details of those changes are shown below: NEW MEDICATIONS [facility] [place], [address] [place] [address] [address] [place], [place] [id number], [phone] CeFAZolin (ceFAZolin 2 g/50 mL intravenous solution) 2g Intravenous every 8 hours for 42 Days. Refills: 0. Comment sodium chloride (sodium chloride 0.9% injectable kit) 20 Milliliter IV Push As Needed as needed See Comments. Dispense quantity sufficient to flush picc line with antibiotic therapy per protocol.. Refills: 0. Comment UPDATED MEDICATIONS Other Medications Start: acetaminophen-HYDROco done (acetaminophen-HYDROc odone 325 mg-5 mg oral tablet) 2 Tab(s) By Mouth every 4 hours as needed Pain - Moderate. Dr. Tena has humphreys (more content not included)... Normal [facility] Basic metabolic 2000 panelon 09-09-2020 Anion gap [Moles/Vol] 8.0 mmol/L Normal 6.0-18.0 Jimena [facility] Comment on above: Performed By: #### 2 4321-2, 02958-3, 38559-1p3, 20236-9 ####[facility] [address] [place], [place] Calcium [Mass/Vol] 8.8 mg/dL Low 8.9-10.3 [facility] Comment on above: Performed By: #### 2 4321-2, 44194-0, 80609-4i7, 38467-3 ####[facility] [address] [place], [place] Chloride [Moles/Vol] 100 mmol/L Normal 98-107 Moun [facility] Comment on above: Performed By: #### 2 4321-2, 43391-5, 73812-0t2, 67470-0 ####[facility] [address] [place], [place] CO2 [Moles/Vol] 30 mmol/L Normal 22-32 [facility] Comment on above: Performed By: #### 2 4321-2, 05660-5, 30083-4t8, 96715-5 ####[facility] [address] [place], [place] Creatinine [Mass/Vol] 0.59 mg/dL Low 0.60-1.30 Jimena [facility] Comment on above: Performed By: #### 2 4321-2, 82791-0, 33643-9z4, 28536-2 ####[facility] [address] [place], [place] Glucose [Mass/Vol] 92 mg/dL Normal 70-99 [facility] Comment on above: Result Comment: U pdated ADA Reference Range A normal fasting glucose concentration is less than 100 mg/dL. An impaired fasting glucose concentration is 100-125 mg/dL. A provisional diagnosis of diabetes mellitus can be made when a fasting glucose concentration is greater than 125 mg/dL. Performed By: #### 2 4321-2, 45407-5, 32751-6e8, 93681-5 ####[facility] [address] [place], [place] Potassium [Moles/Vol] 3.5 mmol/L Low 3.6-5.1 Jimena [facility] Comment on above: Performed By: #### 2 1-2, 87467-8, 63112-2c3, 24033-2 ####[facility] [address] [place], [place] Sodium [Moles/Vol] 138 mmol/L Normal 136-145 [facility] Comment on above: Performed By: #### 2 1-2, 60899-1, 49515-1n8, 76683-0 ####[facility] [address] [place], [place] Urea nitrogen (BldV) [Mass/Vol] 8 mg/dL Normal 8-20 [facility] Comment on above: Performed By: #### 2 1-2, 35083-9, 86327-1w5, 31443-8 ####[facility] [address] [place], [place] CBC W Auto Differential pane l (Bld)on 09-09-2020 Basophils (Bld) [#/Vol] 0.00 thou/mcL Normal 0.00-0.20 [facility] Comment on above: Performed By: #### 5 7021-8 ####[facility] [address] [place], [place] Basophils/100 WBC (Bld) 0.5 % Normal 0.0-2.0 M [facility] Comment on above: Performed By: #### 5 7021-8 ####[facility] [address] [place], [place] Eosinophils (Bld) [#/Vol] 0.10 thou/mcL Normal 0.00-0.70 [facility] Comment on above: Performed By: #### 5 7021-8 ####[facility] [address] [place], [place] Eosinophils/100 WBC (Bld) 2.1 % Normal 0.0-7.0 [facility] Comment on above: Performed By: #### 5 7021-8 ####[facility] [address] [place], [place] Erythrocyte distribution width (RBC) [Entitic vol] 14.0 % Normal 11.0-14.8 [facility] Comment on above: Performed By: #### 5 7021-8 ####[facility] [address] [place], [place] Hematocrit (Bld) [Volume fraction] 36.2 % Normal 35.0-45.0 [facility] Comment on above: Performed By: #### 5 7021-8 ####[facility] [address] [place], [place] Hemoglobin (Bld) [Mass/Vol] 12.0 g/dL Normal 12.0-16.0 [facility] Comment on above: Performed By: #### 7021-8 ####[facility] [address] [place] [address] Lymphocytes (Bld) [#/Vol] 1.10 thou/mcL Normal 1.00-4.80 [facility] Comment on above: Performed By: #### 5 7021-8 ####[facility] [address] [place], [place] Lymphocytes/100 WBC (Bld) 17.2 % Low 22.0-44.0 [facility] Comment on above: Performed By: #### 5 7021-8 ####[facility] [address] [place], [place] MCH (RBC) [Entitic mass] 29.7 Picograms Normal 27.0-34.0 [facility] Comment on above: Performed By: #### 5 7021-8 ####[facility] [address] [place], [place] MCHC (RBC) [Mass/Vol] 33.1 g/dL Normal 32.0-36.0 Jimena [facility] Comment on above: Performed By: #### 5 7021-8 ####[facility] [address] [place], [place] MCV (RBC) [Entitic vol] 89.6 fL Normal 80.0-97.0 [facility] Comment on above: Performed By: #### 7021-8 ####[facility] Monocytes (Bld) [#/Vol] 0.70 thou/mcL Normal 0.00-0.90 [facility] Comment on above: Performed By: #### 7021-8 ####[address] Monocytes/100 WBC (Bld) 10.8 % Normal 0.0-12.0 [facility] Comment on above: Performed By: #### 70-8 ####[address] Neutrophils (Bld) [#/Vol] 4.50 thou/mcL Normal 1.80-7.70 [facility] Comment on above: Performed By: #### 7021-8 ####[address] Neutrophils/100 WBC (Bld) 69.4 % Normal 40.0-70.0 [facility] Comment on above: Performed By: #### 7021-8 ####[address] Platelet mean volume (Bld) [Entitic vol] 8.2 fL Normal 6.2-12.1 [facility] Comment on above: Performed By: #### 7021-8 ####[address] Platelets (Bld) [#/Vol] 224 thou/mcL Normal 142-424 [facility] Comment on above: Performed By: #### 7021-8 ####[address] RBC (Bld) [#/Vol] 4.04 million/mcL Normal 3.80-5.10 M [facility] Comment on above: Performed By: #### 5 7021-8 ####[facility] [address] [place], [place] WBC (Bld) [#/Vol] 6.5 thou/mcL Normal 4.6-10.2 [facility] Comment on above: Performed By: #### 5 7021-8 ####[facility] [address] [place], [place] GFR/1.73 sq M.predicted (S/P /Bld) [Vol rate/Area]on 09-09-2020 GFR/1.73 sq M.predicted among blacks MDRD (S/P/Bld) [Vol rate/Area] mL/min/{1.73_m2} Normal [facility] Comment on above: Result Comment: The MDRD equation has not been validated for those over 70 years, women, patients with serious co-morbid conditions, or with extremes of body size, muscle mass of nutritional status. Performed By: #### 2 1-2, 58004-4, 05986-8x1, 76039-3 ####[facility] [address] [place], [place] GFRbbon 09-09-2020 GFR/1.73 sq M.predicted among non-blacks MDRD (S/P/Bld) [Vol rate/Area] mL/min/{1.73_m2} Normal [facility] Comment on above: Performed By: #### 2 1-2, 37192-0, 23960-3z6, 24130-2 ####[facility] [address] [place], [place] Magnesium Levelon 09-09-2020 Magnesium [Mass/Vol] 1.7 mg/dL Low 1.8-2.5 [facility] Comment on above: Performed By: #### 2 4321-2, 27708-7, 85662-2s2, 71318-0 ####[facility] [address] [place], [place] Antibody Screen Interpretati onon 09-07-2020 Interpretation and review of laboratory results Negative Normal NEGATIVE-NEGA TIVE [facility] Comment on above: Performed By: #### 5 6850-1 ####[facility] MCE #1 Basic metabolic 2000 panelon 09-07-2020 Anion gap [Moles/Vol] 7.0 mmol/L Normal 6.0-18.0 Jimena [facility] Comment on above: Performed By: #### 6 9405-9, 55135-1f2, 82135-2 ####[facility] [address] [place], [place] Calcium [Mass/Vol] 8.9 mg/dL Normal 8.9-10.3 [facility] Comment on above: Performed By: #### 6 9405-9, 82108-5c0, 36508-2 ####[facility] [address] [place], [place] Chloride [Moles/Vol] 103 mmol/L Normal 98-107 Moun [facility] Comment on above: Performed By: #### 6 9405-9, 11952-5q5, 18350-5 ####[facility] [address] [place], [place] CO2 [Moles/Vol] 25 mmol/L Normal 22-32 [facility] Comment on above: Performed By: #### 6 9405-9, 03296-7c5, 58844-3 ####[facility] [address] [place], [place] Creatinine [Mass/Vol] 0.62 mg/dL Normal 0.60-1.30 Jimena [facility] Comment on above: Performed By: #### 6 9405-9, 87770-1r7, 14409-6 ####[facility] [address] [place], [place] Glucose [Mass/Vol] 112 mg/dL High 70-99 [facility] Comment on above: Result Comment: U pdated ADA Reference Range A normal fasting glucose concentration is less than 100 mg/dL. An impaired fasting glucose concentration is 100-125 mg/dL. A provisional diagnosis of diabetes mellitus can be made when a fasting glucose concentration is greater than 125 mg/dL. Performed By: #### 6 9405-9, 49645-1g3, 23389-0 ####[facility] [address] [place], [place] Potassium [Moles/Vol] 3.6 mmol/L Normal 3.6-5.1 Jimena [facility] Comment on above: Performed By: #### 6 9405-9, 41351-1l9, 66435-4 ####[facility] [address] [place], [place] Sodium [Moles/Vol] 135 mmol/L Low 136-145 [facility] Comment on above: Performed By: #### 6 9405-9, 17017-7k8, 93662-4 ####[address] Urea nitrogen (BldV) [Mass/Vol] 15 mg/dL Normal 8-20 [facility] Comment on above: Performed By: #### 6 9405-9, 75011-0c6, 52968-8 ####[facility] [address] [place] [address] Blood Type ABO and Rh(D)on 0 09-07-2020 ABO and Rh group Nom (Bld) Blood group O Rh(D) positive Normal [facility] Comment on above: Performed By: #### 8 82-1 ####[employer] MCE #1 Cell count panel (Body fld)o n 09-07-2020 RBC Manual cnt (Body fld) [#/Vol] 46831 /uL [facility] Comment on above: Result Comment: The reference range and other method performance specifications have not been established for this fluid specimen. The test result should be integrated into the clinical context for interpretation. Performed By: #### 2 9580-8 ####[address]#### 19861-7 ####[facility] WBC (Body fld) [#/Vol] 45.36 10*3/uL [facility] Comment on above: Result Comment: The reference range and other method performance specifications have not been established for this fluid specimen. The test result should be integrated into the clinical context for interpretation. Performed By: #### 2 9580-8 ####[facility] [address] [place] [address]#### 14520-3 ####[facility] IVON[facility]EN[facility] Appearance (Body fld) BLOODY Abnormal Jimena [facility] Comment on above: Performed By: #### 2 9580-8 ####[facility] [address] [place] [address]#### 41111-2 ####[place] IVONNE RICK Color (Body fld) RED [facility] Comment on above: Performed By: #### 2 9580-8 ####[facility] [address] [place] [address]#### 04271-3 ####MARCOS ZALDIVARNIRALI [facility] Service comment (Unsp spec) [Interp] * [facility] Comment on above: Result Comment: LEFT Performed By: #### 2 9580-8 ####[facility] [address] [place] [address]#### 15013-5 ####MARCOS IVONNENIRALI [facility] Specimen source Nom (Unsp spec) KNEE [facility] Comment on above: Performed By: #### 2 9580-8 ####[facility] [address] [place] [address]#### 95475-2 ####AK IVONNE [facility] Coronavirus (COVID-19/SARS-C oV-2) RAPIDon 09-07-2020 Employed in healthcare No [facility] Comment on above: Performed By: #### 9 4532-9x2 ####[facility] [address] [place] [address] First test Unknown [facility] Comment on above: Performed By: #### 9 4532-9x2 ####[facility] [address] [place] [address] ICU No [facility] Comment on above: Performed By: #### 9 4532-9x2 ####[facility] [address] [place] [address] Illness or injury onset date and time UNKNOWN [facility] Comment on above: Performed By: #### 9 4532-9x2 ####[facility] [address] [place] [address] Patient was hospitalized because of this condition Yes [facility] Comment on above: Performed By: #### 9 4532-9x2 ####[facility] [address] [place] [address] status Unknown [facility] Comment on above: Performed By: #### 9 4532-9x2 ####[place] [address] Resides in congregate care setting No [facility] Comment on above: Performed By: #### 9 4532-9x2 ####[place] [address] SARS-CoV-2 (COVID-19) RNA HYUN+probe Ql (Resp) Not detected Normal NOTDET [facility] Comment on above: Result Comment: This test was performed via the [employer] NOW COVID-19 assay and has been authorized by FDA under an Emergency Use Authorization (EUA). The assay is validated for nasopharyngeal (CASING CREW), nasal, and oropharyngeal (OP) direct swabs. The limit of detection of the assay is approximately 125 genome equivalence/mL; however, detection of SARS-CoV-2 may be affected by the sample collection and transport methods, patient factors (e.g., presence of symptoms, and/or stage of infection), and a negative result does not rule out the possibility of infection. For updated information, refer to the Center for Disease Control website: www.cdc.gov/coronavirus. Performed By: #### 9 4532-9x2 ####[place] [id number] Symptomatic as defined by CDC Unknown [facility] Comment on above: Performed By: #### 9 4532-9x2 ####[place] [address] Culture Anaerobicon 04-16-20 21 Bacteria identified Anaer cx Nom (Unsp spec) [facility] Microbiology PROCEDURE: Culture Anaerobic SOURCE: Tissue BODY SITE: COLLECTED DATE/TIME: 09/07/2020 09:00 EDT RECEIVED DATE/TIME: 09/07/2020 09:00 EDT START DATE/TIME: 09/07/2020 09:00 EDT FREE TEXT SOURCE: TISSUE-#1 L KNEE TISSUE INTERFACED REPORTS Final Report [] Verified Date/Time/Personnel: 09/11/2020 11:10 EDT CONTRIBUTOR_SYSTEM, CO_PN NO ANAEROBES ISOLATED AFTER 4 DAYS. Preliminary Report [] Verified Date/Time/Personnel: 09/09/2020 13:54 EDT CONTRIBUTOR_SYSTEM, CO_PN NO ANAEROBES ISOLATED AFTER 48 HOURS, CULTURE WILL BE HELD FOR 4 DAYS. Preliminary Report [] Verified Date/Time/Personnel: 09/07/2020 18:01 EDT CONTRIBUTOR_SYSTEM, CO_PN CULTURE IN PROGRESS Normal [facility] Comment on above: Performed By: #### 6 35-3 ####[place] [address] [place], [place] Bacteria identified Anaer cx Nom (Unsp spec) [facility] Microbiology PROCEDURE: Culture Anaerobic SOURCE: Tissue BODY SITE: COLLECTED DATE/TIME: 09/07/2020 09:00 EDT RECEIVED DATE/TIME: 09/07/2020 09:00 EDT START DATE/TIME: 09/07/2020 09:00 EDT FREE TEXT SOURCE: TISSUE-#2 L KNEE TISSUE INTERFACED REPORTS Final Report [] Verified Date/Time/Personnel: 09/11/2020 11:08 EDT CONTRIBUTOR_SYSTEM, CO_PN NO ANAEROBES ISOLATED AFTER 4 DAYS. Preliminary Report [] Verified Date/Time/Personnel: 09/09/2020 13:56 EDT CONTRIBUTOR_SYSTEM, CO_PN NO ANAEROBES ISOLATED AFTER 48 HOURS, CULTURE WILL BE HELD FOR 4 DAYS. Preliminary Report [] Verified Date/Time/Personnel: 09/07/2020 18:00 EDT CONTRIBUTOR_SYSTEM, CO_PN CULTURE IN PROGRESS Normal [facility] Comment on above: Performed By: #### 6 35-3 ####[address] Bacteria identified Anaer cx Nom (Unsp spec) [facility] Microbiology PROCEDURE: Culture Anaerobic SOURCE: Tissue BODY SITE: COLLECTED DATE/TIME: 09/07/2020 09:00 EDT RECEIVED DATE/TIME: 09/07/2020 09:00 EDT START DATE/TIME: 09/07/2020 09:00 EDT FREE TEXT SOURCE: TISSUE-#3 L KNEE TISSUE INTERFACED REPORTS Final Report [] Verified Date/Time/Personnel: 09/11/2020 11:10 EDT CONTRIBUTOR_SYSTEM, CO_PN NO ANAEROBES ISOLATED AFTER 4 DAYS. Preliminary Report [] Verified Date/Time/Personnel: 09/09/2020 13:55 EDT CONTRIBUTOR_SYSTEM, CO_PN NO ANAEROBES ISOLATED AFTER 48 HOURS, CULTURE WILL BE HELD FOR 4 DAYS. Preliminary Report [] Verified Date/Time/Personnel: 09/07/2020 18:01 EDT CONTRIBUTOR_SYSTEM, CO_PN CULTURE IN PROGRESS [facility] Comment on above: Performed By: #### 6 35-3 ####[address] Bacteria identified Anaer cx Nom (Unsp spec) [facility] Microbiology PROCEDURE: Culture Anaerobic SOURCE: Fluid BODY SITE: COLLECTED DATE/TIME: 09/07/2020 09:00 EDT RECEIVED DATE/TIME: 09/07/2020 09:00 EDT START DATE/TIME: 09/07/2020 09:00 EDT FREE TEXT SOURCE: FLUID-L KNEE FLUID INTERFACED REPORTS Final Report [] Verified Date/Time/Personnel: 09/11/2020 11:09 EDT CONTRIBUTOR_SYSTEM, CO_PN NO ANAEROBES ISOLATED AFTER 4 DAYS. Preliminary Report [] Verified Date/Time/Personnel: 09/09/2020 13:56 EDT CONTRIBUTOR_SYSTEM, CO_PN NO ANAEROBES ISOLATED AFTER 48 HOURS, CULTURE WILL BE HELD FOR 4 DAYS. Preliminary Report [] Verified Date/Time/Personnel: 09/07/2020 18:02 EDT CONTRIBUTOR_SYSTEM, CO_PN CULTURE IN PROGRESS [facility] Comment on above: Performed By: #### 6 35-3 ####[address] Culture Funguson 09-07-2020 Fungus identified Cx Nom (Unsp spec) [facility] Microbiology PROCEDURE: Culture Fungus SOURCE: Tissue BODY SITE: COLLECTED DATE/TIME: 09/07/2020 09:00 EDT RECEIVED DATE/TIME: 09/07/2020 09:00 EDT START DATE/TIME: 09/07/2020 09:00 EDT FREE TEXT SOURCE: TISSUE-#2 L KNEE TISSUE INTERFACED REPORTS Final Report [] Verified Date/Time/Personnel: 10/07/2020 23:53 EDT CONTRIBUTOR_SYSTEM, CO_PN NO FUNGUS GROWN AFTER 4 WEEKS Preliminary Report [] Verified Date/Time/Personnel: 09/07/2020 18:01 EDT CONTRIBUTOR_SYSTEM, CO_PN CULTURE IN PROGRESS CULTURE WILL BE UPDATED IF A FUNGUS (INCLUDING YEAST) IS GROWN. CULTURE WILL BE HELD FOR 1-4 WEEKS Normal [facility] Comment on above: Performed By: #### 5 80-1 ####[address] Fungus identified Cx Nom (Unsp spec) [facility] Microbiology PROCEDURE: Culture Fungus SOURCE: Tissue BODY SITE: COLLECTED DATE/TIME: 09/07/2020 09:00 EDT RECEIVED DATE/TIME: 09/07/2020 09:00 EDT START DATE/TIME: 09/07/2020 09:00 EDT FREE TEXT SOURCE: TISSUE-#1 L KNEE TISSUE INTERFACED REPORTS Final Report [] Verified Date/Time/Personnel: 10/07/2020 23:53 EDT CONTRIBUTOR_SYSTEM, CO_PN NO FUNGUS GROWN AFTER 4 WEEKS Preliminary Report [] Verified Date/Time/Personnel: 09/07/2020 18:01 EDT CONTRIBUTOR_SYSTEM, CO_PN CULTURE IN PROGRESS CULTURE WILL BE UPDATED IF A FUNGUS (INCLUDING YEAST) IS GROWN. CULTURE WILL BE HELD FOR 1-4 WEEKS Normal [facility] Comment on above: Performed By: #### 5 80-1 ####[address] Fungus identified Cx Nom (Unsp spec) [facility] Microbiology PROCEDURE: Culture Fungus SOURCE: Tissue BODY SITE: COLLECTED DATE/TIME: 09/07/2020 09:00 EDT RECEIVED DATE/TIME: 09/07/2020 09:00 EDT START DATE/TIME: 09/07/2020 09:00 EDT FREE TEXT SOURCE: TISSUE-#3 L KNEE TISSUE INTERFACED REPORTS Final Report [] Verified Date/Time/Personnel: 10/07/2020 23:53 EDT CONTRIBUTOR_SYSTEM, CO_PN NO FUNGUS GROWN AFTER 4 WEEKS Preliminary Report [] Verified Date/Time/Personnel: 09/07/2020 18:01 EDT CONTRIBUTOR_SYSTEM, CO_PN CULTURE IN PROGRESS CULTURE WILL BE UPDATED IF A FUNGUS (INCLUDING YEAST) IS GROWN. CULTURE WILL BE HELD FOR 1-4 WEEKS Normal [facility] Comment on above: Performed By: #### 5 80-1 ####[address] Fungus identified Cx Nom (Unsp spec) [facility] Microbiology PROCEDURE: Culture Fungus SOURCE: Fluid BODY SITE: COLLECTED DATE/TIME: 09/07/2020 09:00 EDT RECEIVED DATE/TIME: 09/07/2020 09:00 EDT START DATE/TIME: 09/07/2020 09:00 EDT FREE TEXT SOURCE: FLUID-L KNEE FLUID INTERFACED REPORTS Final Report [] Verified Date/Time/Personnel: 10/07/2020 23:53 EDT CONTRIBUTOR_SYSTEM, CO_PN NO FUNGUS GROWN AFTER 4 WEEKS Preliminary Report [] Verified Date/Time/Personnel: 09/07/2020 18:02 EDT CONTRIBUTOR_SYSTEM, CO_PN CULTURE IN PROGRESS CULTURE WILL BE UPDATED IF A FUNGUS (INCLUDING YEAST) IS GROWN. CULTURE WILL BE HELD FOR 1-4 WEEKS Normal [facility] Comment on above: Performed By: #### 5 80-1 ####[address] Culture Tissue + Susceptibil ity + Smearon 09-07-2020 Bacteria identified Biopsy cx Nom (Tiss) [facility] Microbiology PROCEDURE: Culture Tissue + Susceptibility + Smear SOURCE: Tissue BODY SITE: COLLECTED DATE/TIME: 09/07/2020 09:00 EDT RECEIVED DATE/TIME: 09/07/2020 09:00 EDT START DATE/TIME: 09/07/2020 09:00 EDT FREE TEXT SOURCE: TISSUE-#3 L KNEE TISSUE INTERFACED REPORTS Final Report [] Verified Date/Time/Personnel: 09/09/2020 10:13 EDT CONTRIBUTOR_SYSTEM, CO_PN NO GROWTH AFTER 48 HOURS Preliminary Report [] Verified Date/Time/Personnel: 09/08/2020 14:48 EDT CONTRIBUTOR_SYSTEM, CO_PN NO GROWTH AT 12-24 HOURS Gram Stain [] Verified Date/Time/Personnel: 09/08/2020 05:34 EDT CONTRIBUTOR_SYSTEM, CO_PN NO POLYS SEEN, NO EPITHELIALS SEEN, NO ORGANISMS SEEN Normal [facility] Comment on above: Performed By: #### 2 0474-3 ####[address] Bacteria identified Biopsy cx Nom (Tiss) [facility] Microbiology PROCEDURE: Culture Tissue + Susceptibility + Smear SOURCE: Tissue BODY SITE: COLLECTED DATE/TIME: 09/07/2020 09:00 EDT RECEIVED DATE/TIME: 09/07/2020 09:00 EDT START DATE/TIME: 09/07/2020 09:00 EDT FREE TEXT SOURCE: TISSUE-#1 L KNEE TISSUE INTERFACED REPORTS Final Report [] Verified Date/Time/Personnel: 09/09/2020 10:14 EDT CONTRIBUTOR_SYSTEM, CO_PN NO GROWTH AFTER 48 HOURS Preliminary Report [] Verified Date/Time/Personnel: 09/08/2020 14:48 EDT CONTRIBUTOR_SYSTEM, CO_PN NO GROWTH AT 12-24 HOURS Gram Stain [] Verified Date/Time/Personnel: 09/08/2020 05:37 EDT CONTRIBUTOR_SYSTEM, CO_PN NO POLYS SEEN, NO EPITHELIALS SEEN, NO ORGANISMS SEEN [facility] [facility] Comment on above: Performed By: #### 2 0474-3 ####[address] Bacteria identified Biopsy cx Nom (Tiss) [facility] Microbiology PROCEDURE: Culture Tissue + Susceptibility + Smear SOURCE: Tissue BODY SITE: COLLECTED DATE/TIME: 09/07/2020 09:00 EDT RECEIVED DATE/TIME: 09/07/2020 09:00 EDT START DATE/TIME: 09/07/2020 09:00 EDT FREE TEXT SOURCE: TISSUE-#2 L KNEE TISSUE INTERFACED REPORTS Final Report [] Verified Date/Time/Personnel: 09/09/2020 10:09 EDT CONTRIBUTOR_SYSTEM, CO_PN NO GROWTH AFTER 48 HOURS Preliminary Report [] Verified Date/Time/Personnel: 09/08/2020 14:47 EDT CONTRIBUTOR_SYSTEM, CO_PN NO GROWTH AT 12-24 HOURS Gram Stain [] Verified Date/Time/Personnel: 09/08/2020 05:45 EDT CONTRIBUTOR_SYSTEM, CO_PN MANY POLYS No Epithelials NO ORGANISMS SEEN Normal [facility] Comment on above: Performed By: #### 2 0474-3 ####[facility] [address], [place] Differential panel (Body fld )on 09-07-2020 Lymphocytes/100 WBC (Body fld) 2 % Normal [facility] Comment on above: Performed By: #### 2 9580-8 ####AKKAREN [facility] [address] [place] [address]#### 49295-5 ####MARCOS CORONADO [facility] Monocytes+Macrophages/1 00 WBC (Body fld) 5 % Normal [facility] Comment on above: Performed By: #### 2 9580-8 ####JONATHAN [facility] [address] [place], [place]#### 44898-5 ####MARCOS CABRERA Segmented neutrophils/100 WBC (Body fld) 93 % Normal [facility] Comment on above: Performed By: #### 2 9580-8 ####[facility]KAREN [facility] [address] [place], [place]#### 72422-9 ####MARCOS CORONADO [facility] Tube number Nom (Body fld) [ID] 1 Normal [facility] Comment on above: Performed By: #### 2 9580-8 ####[address]#### [address]-6 ####[facility] GFR/1.73 sq M.predicted (S/P /Bld) [Vol rate/Area]on 09-07-2020 GFR/1.73 sq M.predicted among blacks MDRD (S/P/Bld) [Vol rate/Area] mL/min/{1.73_m2} Normal [facility] Comment on above: Result Comment: The MDRD equation has not been validated for those over 70 years, women, patients with serious co-morbid conditions, or with extremes of body size, muscle mass of nutritional status. Performed By: #### 6 9405-9, 89773-7g3, 17450-9 ####[address] GFRbbon 09-07-2020 GFR/1.73 sq M.predicted among non-blacks MDRD (S/P/Bld) [Vol rate/Area] mL/min/{1.73_m2} Normal [facility] Comment on above: Performed By: #### 6 9405-9, 22316-3g9, 63074-6 ####[address] Hemogram and platelets WO di fferential panel (Bld)on 09-07-2020 Erythrocyte distribution width (RBC) [Entitic vol] 14.3 % Normal 11.0-14.8 [facility] Comment on above: Performed By: #### 2 4317-0 ####[address] Hematocrit (Bld) [Volume fraction] 36.3 % Normal 35.0-45.0 [facility] Comment on above: Performed By: #### 2 4317-0 ####[address] Hemoglobin (Bld) [Mass/Vol] 12.1 g/dL Normal 12.0-16.0 [facility] Comment on above: Performed By: #### 2 4317-0 ####[address],[place] MCH (RBC) [Entitic mass] 29.8 Picograms Normal 27.0-34.0 [facility] Comment on above: Performed By: #### 2 4317-0 ####[facility] [address] [place], [place] MCHC (RBC) [Mass/Vol] 33.3 g/dL Normal 32.0-36.0 [facility] Comment on above: Performed By: #### 2 7-0 ####[facility] [address] [place], [place] MCV (RBC) [Entitic vol] 89.7 fL Normal 80.0-97.0 M [facility] Comment on above: Performed By: #### 2 4317-0 ####[address] Platelet mean volume (Bld) [Entitic vol] 8.0 fL Normal 6.2-12.1 [facility] Comment on above: Performed By: #### 2 7-0 ####[facility] [address] [place], [place] Platelets (Bld) [#/Vol] 205 thou/mcL Normal 142-424 [facility] Comment on above: Performed By: #### 2 4317-0 ####[place] [address] [place], [place] RBC (Bld) [#/Vol] 4.05 million/mcL Normal 3.80-5.10 [facility] Comment on above: Performed By: #### 2 4317-0 ####[facility] [address] [place], [place] WBC (Bld) [#/Vol] 14.6 thou/mcL High 4.6-10.2 [facility] Comment on above: Performed By: #### 2 4317-0 ####[facility] [address] [place], [place] PACU I Nursingon 09-07-2020 PACU I Nursing [facility] PACU Nursing Record Summary Primary Physician: Son Tena MD Finalized Date/Time: 09/07/20 10:32:01 Pt. Name: PETERALEKSANDAR/Sex: 1955 Female Med Rec #: [id number] Physician: Son Tena MD Financial #: [id number] Pt. Type: I Room/Bed: / Admit/Disch: 09/06/20 21:34:00 - Institution: [facility] OR Main PACU I Case Times Entry 1 In PACU I 09/07/20 09:05:00 Ready for PACU I 09/07/20 10:05:00 Discharge Discharge from PACU 09/07/20 10:05:00 PACU I Discharge NA I Delay Reason Last Modified By: Hellen Real RN 09/07/20 10:31:57 [facility] OR Main PACU I Case Attendees Entry 1 Case Attendee Hellen Real RN Role Performed RN Last Modified By: Hellen Real RN 09/07/20 09:10:03 Finalized By: Hellen Real RN Document Signatures Signed By: Hellen Real RN 09/07/20 10:32 Normal [facility] PT Coag (PPP) [Time]on 09-07 INR Coag (Bld) [Relative time] 1.17 {INR} Normal [facility] Comment on above: Result Comment: The recommended therapeutic INR range for most cardiac indications is 2.0-3.0. For high intensity therapy(ie.mechanical heart valves), the recommended range is 2.5-3.5. Performed By: #### 5 902-2, 3173-2 ####[place] [address] Post PACU Nursingon 09-08-19 21 Post PACU Nursing CO [facility] PACU II Nursing Record Summary Primary Physician: Son Tena MD Finalized Date/Time: 09/07/20 15:23:50 Pt. Name: GREENALEKSANDAR/Sex: 1955 Female Med Rec #: [id number] Physician: Son Tena MD Financial #: [id number] Pt. Type: I Room/Bed: Admit/Disch: 09/06/20 21:34:00 - Institution: [facility] OR Main PACU II Case Times Entry 1 In PACU II 09/07/20 10:05:00 Ready for PACU II 09/07/20 10:35:00 Discharge Discharge from PACU 09/07/20 10:35:00 PACU II Discharge Transporter unavailable II Delay Reason Last Modified By: Hellen Real RN 09/07/20 15:23:48 General Comments: transport wait [facility] OR Main PACU II Case Attendees Entry 1 Case Attendee Hellen Real RN Role Performed RN Last Modified By: Hellen Real RN 09/07/20 10:32:40 Finalized By: Hellen Real RN Document Signatures Signed By: Hellen Real RN 09/07/20 10:33 Hellen Real RN 09/07/20 15:23 Normal [facility] PreOp Nursingon 09-07-2020 PreOp Nursing [facility] PreOp Nursing Record Summary Primary Physician: Son Tena MD Finalized Date/Time: 09/07/20 08:25:53 Pt. Name: ALEKSANDAR GREEN Jillian HagerB./Sex: 1955 Female Med Rec #: [id number] Physician: Financial #: [id number] Pt. Type: O Room/Bed: / Admit/Disch: 09/06/20 20:16:00 - Institution: [facility] OR PreOp Case Times Entry 1 PreOp Case Times In Room Time 09/07/20 06:59:00 Out Room Time 09/07/20 07:25:00 Last Modified By: Raquel Andrea RN 09/07/20 08:25:51 [facility] OR PreOp Case Attendees Entry 1 Case Attendee Hermila Wagner RN Role Performed RN Last Modified By: Hermila Wagner RN 09/07/20 07:11:18 Finalized By: Raquel Andrea RN Document Signatures Signed By: Raquel Andrea RN 09/07/20 08:25 Normal [facility] Prothrombin Timeon PT Coag (PPP) [Time] 15.2 s High 11.9-14.7 Moun t [facility] Comment on above: Performed By: #### 5 902-2, 3173-2 ####[facility] [address] [place], [place] [address] XR Chest 1 Viewon 09-07-2020 XR Chest Single view EXAMINATION TYPE: X R Chest 1 View DATE OF EXAM: 09/06/2020 10:14 PM HISTORY: Pre-op Study. Postoperative infection COMPARISON:NONE VIEWS:Portable AP semiupright FINDINGS: The lungs are clear and are normally inflated. The pulmonary vascular pattern is normal. Heart size is within normal limits, and mediastinal and hilar contours are unremarkable. There is no pneumothorax, pleural effusion or acute bony abnormality. IMPRESSION: 1. No acute cardiopulmonary disease. [facility] thanks you for the opportunity to care for your patient. Workstation ID: [id number] - [id number] FINAL REPORT Dictated By: Owen Doan MD 09/06/2020 22:39 Assigned Physician: Owen Doan MD Reviewed and Electronically Signed By: Owen Doan MD 09/06/2020 22:39 Transcribed by: JANETT 09/06/2020 22:39 Technologist: SO Normal [facility] aPTT Coag (Bld) [Time]on aPTT Coag (PPP) [Time] 34.2 s Normal 23.3-35.3 Mo unt [facility] Comment on above: Performed By: #### 5 902-2, 3173-2 ####JONATHAN [facility] [address] [place], [place] [address] Cell count panel (Body fld)o n 09-06-2020 Appearance (Body fld) BLOODY Abnormal [facility] Comment on above: Performed By: #### 3 4556-1, 53634-4 ####[facility] [address] [place] [address] Color (Body fld) RED Normal [facility] Comment on above: Performed By: #### 3 4556-1, 56135-6 ####[facility] [address] [place] [address] RBC Manual cnt (Body fld) [#/Vol] [id number] /uL [facility] [place] [facility] Comment on above: Result Comment: The reference range and other method performance specifications have not been established for this fluid specimen. The test result should be integrated into the clinical context for interpretation. Performed By: #### 3 4556-1, 21350-8 ####[facility] [address] [place] [address] Specimen source Nom (Unsp spec) KNEE Normal [facility] Comment on above: Result Comment: LEFT KNEE Performed By: #### 3 4556-1, 89921-5 ####[facility] [address] [place] [address] WBC (Body fld) [#/Vol] 7.104 10*3/uL [facility] [place] [facility] Comment on above: Result Comment: The reference range and other method performance specifications have not been established for this fluid specimen. The test result should be integrated into the clinical context for interpretation. Performed By: #### 3 4556-1, 43466-3 ####[facility] [address] [place] [address] Culture Anaerobicon 09-07-19 21 Bacteria identified Anaer cx Nom (Unsp spec) [facility] Microbiology PROCEDURE: Culture Anaerobic SOURCE: Fluid BODY SITE: COLLECTED DATE/TIME: 09/06/2020 11:18 EDT RECEIVED DATE/TIME: 09/06/2020 11:18 EDT START DATE/TIME: 09/06/2020 11:18 EDT FREE TEXT SOURCE: FLUID-LEFT KNEE INTERFACED REPORTS Final Report [] Verified Date/Time/Personnel: 09/10/2020 12:26 EDT CONTRIBUTOR_SYSTEM, CO_PN NO ANAEROBES ISOLATED AFTER 4 DAYS. Preliminary Report [] Verified Date/Time/Personnel: 09/08/2020 16:47 EDT CONTRIBUTOR_SYSTEM, CO_PN NO ANAEROBES ISOLATED AFTER 48 HOURS, CULTURE WILL BE HELD FOR 4 DAYS. Preliminary Report [] Verified Date/Time/Personnel: 09/06/2020 16:45 EDT CONTRIBUTOR_SYSTEM, CO_PN CULTURE IN PROGRESS Normal [facility] Comment on above: Performed By: #### 6 35-3 ####[facility] [address], [place] Differential panel (Body fld )on 09-06-2020 Lymphocytes/100 WBC (Body fld) 10 % Normal [facility] Comment on above: Performed By: #### 3 4556-1, 78305-1 #### [facility] [address] [place] [address] Monocytes+Macrophages/1 00 WBC (Body fld) 4 % Normal [facility] Comment on above: Performed By: #### 3 4556-1, 34341-9 ####[facility] [address] [place] [address] Segmented neutrophils/100 WBC (Body fld) 86 % Normal [facility] Comment on above: Performed By: #### 3 4556-1, 76757-4 ####[facility] [address] [place] [address] Tube number Nom (Body fld) [ID] 1 Normal [facility] Comment on above: Performed By: #### 3 4556-1, 88208-7 ####[facility] [address] [place] [address] Basic metabolic 2000 panelon 02-28-2020 Calcium [Mass/Vol] 8.9 mg/dL Normal 8.5-10.6 [facility] Chloride [Moles/Vol] 101 mmol/L Normal 98-107 Moun [facility] CO2 [Moles/Vol] 28 mmol/L Normal 21-32 [facility] Creatinine [Mass/Vol] 0.71 mg/dL Normal 0.55-1.02 Jim[facility] Glucose [Mass/Vol] 132 mg/dL High 70-99 [facility] Potassium [Moles/Vol] 4.0 mmol/L Normal 3.5-5.1 Jimena [facility] Sodium [Moles/Vol] 137 mmol/L Normal 136-145 [facility] Urea nitrogen (BldV) [Mass/Vol] 11 mg/dL Normal 7.0-18.0 [facility] Urea nitrogen/Creatinine [Mass ratio] 15 mg/mg Normal [facility] Culture Funguson 02-28-2020 Fungus identified Cx Nom (Unsp spec) [facility] Microbiology PROCEDURE: Culture Fungus SOURCE: Tissue BODY SITE: COLLECTED DATE/TIME: 02/27/2020 14:32 EDT RECEIVED DATE/TIME: 02/27/2020 14:32 EDT START DATE/TIME: 02/27/2020 14:32 EDT FREE TEXT SOURCE: TISSUE-LT KNEE B INTERFACED REPORTS Final Report [] Verified Date/Time/Personnel: 03/28/2020 19:39 EST CONTRIBUTOR_SYSTEM, CO_PN NO FUNGUS GROWN AFTER 4 WEEKS Preliminary Report [] Verified Date/Time/Personnel: 02/28/2020 00:06 EDT CONTRIBUTOR_SYSTEM, CO_PN CULTURE IN PROGRESS CULTURE WILL BE UPDATED IF A FUNGUS (INCLUDING YEAST) IS GROWN. CULTURE WILL BE HELD FOR 1-4 WEEKS Normal [facility] Comment on above: Performed By: #### 9 4532-9x5 #### [facility] [address] [place] [address] Hemogram and platelets WO di fferential panel (Bld)on 02-28-2020 Erythrocyte distribution width (RBC) [Entitic vol] 17.1 % High 11.7-15.0 [facility] Hematocrit (Bld) [Volume fraction] 35.2 % Normal 34.0-50.0 [facility] Hemoglobin (Bld) [Mass/Vol] 11.4 g/dL Low 11.5-17.0 [facility] MCH (RBC) [Entitic mass] 27.5 Picograms Normal 27.0-34.0 [facility] MCHC (RBC) [Mass/Vol] 32.5 g/dL Normal 32.0-36.0 Jimena [facility] MCV (RBC) [Entitic vol] 84.6 fL Normal 80-98 M ount [facility] Platelet mean volume (Bld) [Entitic vol] 8.6 fL Normal 7.5-11.2 [facility] Platelets (Bld) [#/Vol] 225 thou/mcL Normal 140-415 [facility] RBC (Bld) [#/Vol] 4.16 x(10)6/mcL Normal 3.80-5.60 Mo [facility] WBC (Bld) [#/Vol] 11.2 thou/mcL High 4.0-10.5 Moun t [facility] OR Nursingon 02-28-2020 OR Nursing CO NA OR Nursing Record Summary Primary Physician: Son Tena MD Finalized Date/Time: 02/28/20 14:53:14 Pt. Name: ALEKSANDAR GREEN Jillian /Sex: 1955 Female Med Rec #: [id number] Physician: Financial #: [id number] Pt. Type: A Room/Bed: [facility] Admit/Disch: 02/27/20 10:15:00 - 02/28/20 13:34:00 Institution: CO NA OR Case Times Entry 1 Patient Times Patient In Room 02/27/20 13:03:00 Patient Out Room 02/27/20 15:28:00 Surgical Times Start Time 02/27/20 13:27:00 Stop Time 02/27/20 15:23:00 Last Modified By: Argelia Ruelas RN 02/27/20 15:31:43 CO NA OR Delays Entry 1 Delay Reason OR Team Not Ready Description anesthesia told to bring patient back at 1257 Duration (minutes) 10 Min Last Modified By: Argelia Ruelas RN 02/27/20 13:37:40 CO NA OR Case Attendees Entry 1 Entry 2 Entry 3 Case Attendee Son Tena MD, Maegan Cancino MD Role Performed Primary Surgeon Physician Special Officer Automat Anesthesiologist Time In 02/27/20 13:03:00 02/27/20 13:03:00 02/27/20 13:03:00 Time Out 02/27/20 14:45:00 02/27/20 15:28:00 02/27/20 15:28:00 Procedure Revision Knee Revision Knee Revision Knee Total(Left) Total(Left) Total(Left) Attendee Comment cover Relief Reason Last Modified By: Argelia Ruelas RN, RN, Sierra S Evergin RN, Sierra S 02/27/20 15:31:35 02/27/20 15:31:35 02/27/20 15:31:35 Entry 4 Entry 5 Entry 6 Case Attendee Alex Yoo CRNA, RN , Popeye Jason Role Performed Nurse Clam Picker blood bank business manager First Scrub Time In 02/27/20 13:03:00 02/27/20 13:03:00 02/27/20 13:03:00 Time Out 02/27/20 15:28:00 02/27/20 15:28:00 02/27/20 15:28:00 Procedure Revision Knee Revision Knee Revision Knee Total(Left) Total(Left) Total(Left) Attendee Comment Relief Reason Last Modified By: Jessenia RN , Argelia Ruelas RN , Argelia Salazar RN 02/27/20 15:31:35 02/27/20 15:31:35 02/27/20 15:31:35 Entry 7 Entry 8 Entry 9 Case Attendee Milla Dorsey Alexa Case, Attendee Other Role Performed Second Scrub Assistive Personnel Online User Experience Strategist Time In 02/27/20 13:03:00 02/27/20 12:56:00 02/27/20 13:03:00 Time Out 02/27/20 15:28:00 02/27/20 15:28:00 02/27/20 15:28:00 Procedure Revision Knee Revision Knee Revision Knee Total(Left) Total(Left) Total(Left) Attendee Comment anna severino Relief Reason Last Modified By: Jessenia ANTUNEZ , Argelia Ruelas RN , Argelia Ruelas RN , Argelia Burgos 02/27/20 15:31:35 02/27/20 15:31:35 02/27/20 15:31:35 CO NA OR General Case Paper Cup Machine Tender 1 OR CO NA 09 ASA Class 2 Case Wound Class Clean Specialty Orthopedic Surgery Case Level Ortho Complex Diagnosis Preop Diagnosis t84.89xa Postop Same As Preop Yes Postop Diagnosis t84.89xa This is a down time No record. Last Modified By: Argelia Ruelas RN 02/27/20 13:37:57 CO NA OR Surgical Procedures Entry 1 Procedure Revision Knee Total Primary Procedure Yes Modifiers Left Procedure Wound Clean Class Primary Surgeon Son Tena MD Surgical Service Orthopedic Surgery Anesthesia Type General Procedure Performed left total knee revision Start 02/27/20 13:27:00 Stop 02/27/20 15:23:00 Last Modified By: Argelia Ruelas RN 02/27/20 15:31:45 CO NA OR Patient Positioning Entry 1 Abdomen Pre N/A Skin Condition Warm, Dry, Intact Procedure Before Body Position Supine Pressure Points Yes Assessed? Right Arm Position On armboard Left Arm Position On armboard Arm Secured Right, Left Positioning Device Knee positioner Right Leg Position Straight Left Leg Position Straight Safety Strap Applied Yes Safety Strap Abdomen Location Positioned By Celena Rain Norris Positioning Comment BLACK ROLL BAR Alex MATIAS V, Argelia Ruelas RN, Gerwig, Rylie Procedure Revision Knee Total(Left) Last Modified By: Argelia Ruelas RN 02/27/20 13:38:20 CO NA OR Antithrombolytic Devices Entry 1 IPC Intermittent Right IPC Setting PRE SET Pneumatic Compression IPC Size Knee Bariatric No PARISA Hose PARISA Hose Right PARISA Size Thigh Bariatric No Foot Pump Last Modified By: Argelia Ruelas RN 02/27/20 13:42:25 CO NA OR Tourniquet Entry 1 Site Thigh left Applied By Celena Rain Padsriram Stockinette Cuff Size 30 Inch Unit ID Number 2 Setting 300 mmHg Inflated 02/27/20 13:26:00 Deflated 02/27/20 15:20:00 Last Modified By: Argelia Ruelas RN 02/27/20 15:21:29 CO NA OR Skin Prep Entry 1 Hair Removal Method None Skin Prep Prep Agents Chlorhexidine Gluconate Prep Site ENTIRE OPERATIVE LEG 2% w Alcohol TOURNIQUET TO TOES Prep by Argelia Ruelas RN Procedure Revision Knee Total(Left) Last Modified By: Argelia Ruelas RN 02/27/20 13:42:57 CO NA OR Fire Risk Assessment Entry 1 Alcohol Based Prep Yes Solution Dry Time >3 Minutes or According to Manufactures Instructions. No Pooling Observed. (No Alcohol Prep used (more content not included)... Normal [facility] Patient Summaryon 02-28-2020 Patient Summary PATIENT DISCHARGE INSTRUCTIONS If you are having an emergency and are not able to reach your physician, CALL 911 or go to the nearest emergency room and take this document with you. Leia Coronado [facility] 02/28/20 11:43 [address] [place]. [address] PATIENT INFORMATION Name: ALEKSANDAR GREEN Address: [address] [address] Age: 64 Years Phone: [phone] : 1955 12:00 MRN: [facility][id number] Sex: Female Race: White Ethnicity: Not Hispan/Lat Admitted From: Clinic or [facility] Medical Service: Orthopedic Surgery Nurse Unit/Bed: (CO) 2N 0205-01 Admit Date: 02/27/2020 10:15 PCP: Maurice Salinas MD PHYSICIANS INVOLVED WITH CARE ------ Attending Physicians: Son Tena MD - Orthopaedic Surg Admitting Physician: None found Primary Care Physician:Maurice Salinas MD, - Consults: Rick Lizama [facility] Internal [facility] FOLLOW-UP APPOINTMENTS: Provider: Specialty: Address: Date: Son Tena MD Orthopaedic Surg [address] [facility] [address] (1) 03/14/20 03:30 pm Comment: CALL FOR ANY QUESTIONS OR CONCERNS. FOLLOWUP ON 03/14/20 AT 3:30PM Provider: Specialty: Address: Date: Maurice Salinas MD Follow-up as needed Provider: Specialty: Address: Date: Outpatient Knee Physical Therapy Follow-up as needed Comment: Call and make an appointment if you have not already scheduled your first appointment Begin as soon as possible. ALLERGIES: NSAIDs : Reaction:Bleeding sulfa drugs : Reaction:Unknown penicillins : Reaction:Unknown MEASUREMENTS: Last Charted: Weight: Admission 69.30 kg /152 lbs 12 oz ( 02/27/20 10:58:00 ) MEDICATIONS For: ALEKSANDAR GREEN This is your list of medication(s). Keep it with you at all times. Your doctor may have changed doses, add, held or stopped some of your medications. Please share this information with your family doctor. Carry this list of medications with you in case of an emergency. Update it when medications are stopped, doses are changed, or new medications (including lqxo-iyo-aafeiav products) are added. Ask your doctor if you have any questions. THESE ARE THE MEDICATIONS YOU SHOULD BE TAKING acetaminophen (acetaminophen 500 mg oral tablet) 1 Tab(s) By Mouth every 4 hours as needed for pain. Refills: 0. acetaminophen (Tylenol) 1 Tab(s) By Mouth as needed Pain/Discomfort. NOTES TO PATIENT: follow surgeons directions SEE NEW PRESCRIPTION. DO NOT EXCEED THE MAXIMUM DAILY LIMIT OF 3000MG PER DAY aspirin (Aspirin Enteric Coated 81 mg oral delayed release tablet) 1 Tab(s) By Mouth Twice a day. Refills: 0. BuPROPion (BuPROPion XL) 150 Milligram By Mouth Bedtime. cephalexin (cephalexin monohydrate 500 mg oral capsule) 1 Capsule By Mouth 4 Times/Day for 10 Days. Refills: 0. cholecalciferol (Vitamin D3 2000 intl units oral capsule) 1 Capsule By Mouth once a day. citalopram (citalopram 40 mg oral tablet) 0.5 Tab(s) By Mouth Bedtime. dexamethasone (dexamethasone 4 mg oral tablet) 1 Tab(s) By Mouth once a day for 5 Days. Refills: 0. multivitamin 1 Tab(s) By Mouth once a day. multivitamin (Vitamin B Complex oral tablet, extended release) 1 Tab(s) By Mouth once a day. omeprazole (omeprazole 40 mg oral delayed release capsule) 1 Capsule By Mouth Bedtime. OxyCODONE (oxyCODONE 5 mg oral tablet) 2 Tab(s) By Mouth every 4 hours as needed for pain. Refills: 0., Z47.1 7 days supply pregabalin (Lyrica 75 mg oral capsule) 1 Capsule By Mouth Twice a day. Refills: 0. simvastatin (simvastatin 10 mg oral tablet) 1 Tab(s) By Mouth Bedtime. zolpidem (Ambien CR 12.5 mg oral tablet, extended release) 1 Tab(s) By Mouth Bedtime as needed Insomnia/Sleep. MEDICATION CHANGE DETAILS (Not your Final Home Medication List) During the course of your visit, your home medication list was updated with the most current information. The details of those changes are shown below: NEW MEDICATIONS Printed Prescriptions aspirin (Aspirin Enteric Coated 81 mg oral delayed release tablet) 1 Tab(s) By Mouth Twice a day. Refills: 0. Comment cephalexin (cephalexin monohydrate 500 mg oral capsule) 1 Capsule By Mouth 4 Times/Day for 10 Days. Refills: 0. Comment dexamethasone (dexamethasone 4 mg oral tablet) 1 Tab(s) By Mouth once a day for 5 Days. Refills: 0. Comment OxyCODONE (oxyCODONE 5 mg oral tablet) 2 Tab(s) By Mouth every 4 hours as needed for pain. Refills: 0., Z47.1 7 days supply Comment pregabalin (Lyrica 75 mg oral capsule) 1 Capsule By Mouth Twice a day. Refills: 0. Comment UPDATED MEDICATIONS Printed Prescriptions Start (more content not included)... Normal [facility] Anesthesia Recordon 02-27-20 Anesthesia Record Patient: ALEKSANDAR GREEN MRN: [id number] Age: 64 years Sex: Female : 1955 Associated Diagnoses: None Author: Maegan Mooney MD Procedure Time Out [place] Protocol: patient identity verified, site verified, side verified, procedure to be done verified, patient position verified. REGIONAL ANESTHESIA PROCEDURE Procedure date and begin time: See nurses notes. Procedure date and end time: See nurses notes. Performed by: Maegan Mooney MD. Assisted by: no speech language pathologist assistant. Informed consent: signed by patient. Technique: Peripheral nerve blockade technique performed. Medications-Sedation: sedate with meaningful contact maintained.. Local Anesthesia: 1% lidocaine. Indication for Peripheral Nerve Block: post operative management of pain, at surgeon request. Preparation for Peripheral Nerve Block: The skin was prepped with chlorhexidine in the usual fashion. PERIPHERAL NERVE BLOCKADE Ultrasound guidance to monitor safe spread of local anesthesia. sterile prep with ChloraPrep and drape. 22g 50mm peripheral nerve block needle placed perineural with ultrasound guidance. needle location confirmed. incremental injection. negative aspiration every 5cc. no paresthesia with injection. perineural spread continuously visualized with ultrasound. patient responsive and interactive throughout. Ipack. IPACK BLOCK PERFORMED (LEFT). Needle(s): 4 inches, 22 gauge. Injectate: ropivacaine (concentration .5 %, volume 10 mL). Narrative: ultrasound with tip visualized throughout, paresthesia: none, injection was made incrementally with constant monitoring and aspiration every 5 mLs., blood aspirated none, pain on injection noted none, resistance on injection normal. Monitored during procedure: EKG, heart rate, heart rhythm, blood pressure (NIBP), pulse oximetry. Procedure tolerated: well. Complications: none. Procedure done in: holding area. Findings-Comments: none. Estimated Blood Loss: none. Specimen(s) obtained: none. Impression and Plan Diagnosis and Plan: Diagnosis Preoperative Diagnosis: Knee Pain Postoperative Diagnosis: Knee Pain . Normal [facility] Anesthesia Record Patient: ALEKSANDAR GREEN MRN: [id number] Age: 64 years Sex: Female : 1955 Associated Diagnoses: None Author: Maegan Mooney MD Procedure Time Out [place] Protocol: patient identity verified, site verified, side verified, procedure to be done verified, patient position verified. REGIONAL ANESTHESIA PROCEDURE Procedure date and begin time: See nurses notes. Procedure date and end time: See nurses notes. Performed by: Maegan Mooney MD. Assisted by: no speech language pathologist assistant, RN caring for patient . Informed consent: signed by patient. Technique: Peripheral nerve blockade technique performed. Medications-Sedation: sedate with meaningful contact maintained., midazolam 2 mg IV. Local Anesthesia: 1% lidocaine, 2 ml . Indication for Peripheral Nerve Block: post operative management of pain, at surgeon request. Preparation for Peripheral Nerve Block: The skin was prepped with chlorhexidine in the usual fashion. PERIPHERAL NERVE BLOCKADE Adductor Canal Block: left. sterile prep with ChloraPrep and drape. 22g 50mm peripheral nerve block needle placed perineural with ultrasound guidance. needle location confirmed. incremental injection. negative aspiration every 5cc. no paresthesia with injection. perineural spread continuously visualized with ultrasound. patient responsive and interactive throughout. Band-Aid placed after block is done. . Needle(s): 4 inches, 22 gauge. Injectate: ropivacaine (concentration 0.5 %, volume 20 mL), lidocaine (concentration 1 %, volume 1 mL). Narrative: ultrasound with tip visualized throughout, paresthesia: none, injection was made incrementally with constant monitoring and aspiration every 5 mLs., blood aspirated none, pain on injection noted none, resistance on injection normal. Monitored during procedure: EKG, heart rate, heart rhythm, blood pressure (NIBP), pulse oximetry. Procedure tolerated: well. Complications: none. Procedure done in: holding area. Findings-Comments: none. Estimated Blood Loss: none. Specimen(s) obtained: none. Impression and Plan Diagnosis and Plan: Diagnosis Preoperative Diagnosis: Knee Pain OA Postoperative Diagnosis: Knee Pain OA . Normal [facility] Blood type and Indirect anti body screen panel (Bld)on 02-27-2020 Blood group antibody screen Ql Negative Normal NEG [facility] Rh Nom (Bld) Positive Normal [facility] Cell Count Body Fluidon Cell count panel (Body fld) COLOR, FLUID YELLOW Normal [facility] Culture Aerobicon 02-27-2020 Bacteria identified Aer cx Nom (Unsp spec) [facility] Microbiology PROCEDURE: Culture Aerobic SOURCE: Tissue BODY SITE: COLLECTED DATE/TIME: 02/27/2020 14:34 EDT RECEIVED DATE/TIME: 02/27/2020 14:34 EDT START DATE/TIME: 02/27/2020 14:34 EDT FREE TEXT SOURCE: TISSUE-LT KNEE D INTERFACED REPORTS Final Report [] Verified Date/Time/Personnel: 03/01/2020 05:25 EDT CONTRIBUTOR_SYSTEM, CO_PN NO GROWTH AFTER 72 HOURS Preliminary Report [] Verified Date/Time/Personnel: 02/29/2020 05:21 EDT CONTRIBUTOR_SYSTEM, [employer]_PN NO GROWTH AFTER 48 HOURS FINAL TO FOLLOW Preliminary Report [] Verified Date/Time/Personnel: 02/28/2020 05:54 EDT CONTRIBUTOR_SYSTEM, CO_PN NO GROWTH AT 12-24 HOURS Gram Stain [] Verified Date/Time/Personnel: 02/28/2020 01:09 EDT CONTRIBUTOR_SYSTEM, CO_PN RARE POLYS No Epithelials NO ORGANISMS SEEN Normal [facility] Comment on above: Performed By: #### 6 34-6 ####[address] Bacteria identified Aer cx Nom (Unsp spec) [facility] Microbiology PROCEDURE: Culture Aerobic SOURCE: Tissue BODY SITE: COLLECTED DATE/TIME: 02/27/2020 14:33 EDT RECEIVED DATE/TIME: 02/27/2020 14:33 EDT START DATE/TIME: 02/27/2020 14:33 EDT FREE TEXT SOURCE: TISSUE-LT KNEE C INTERFACED REPORTS Final Report [] Verified Date/Time/Personnel: 03/01/2020 05:25 EDT CONTRIBUTOR_SYSTEM, CO_PN NO GROWTH AFTER 72 HOURS Preliminary Report [] Verified Date/Time/Personnel: 02/29/2020 05:21 EDT CONTRIBUTOR_SYSTEM, CO_PN NO GROWTH AFTER 48 HOURS FINAL TO FOLLOW Preliminary Report [] Verified Date/Time/Personnel: 02/28/2020 05:54 EDT CONTRIBUTOR_SYSTEM, CO_PN NO GROWTH AT 12-24 HOURS Gram Stain [] Verified Date/Time/Personnel: 02/28/2020 01:12 EDT CONTRIBUTOR_SYSTEM, CO_PN NO POLYS SEEN, NO EPITHELIALS SEEN, NO ORGANISMS SEEN Normal [facility] Comment on above: Performed By: #### 6 34-6 ####[address] Bacteria identified Aer cx Nom (Unsp spec) [facility] Microbiology PROCEDURE: Culture Aerobic SOURCE: Tissue BODY SITE: COLLECTED DATE/TIME: 02/27/2020 14:32 EDT RECEIVED DATE/TIME: 02/27/2020 14:32 EDT START DATE/TIME: 02/27/2020 14:32 EDT FREE TEXT SOURCE: TISSUE-LT KNEE B INTERFACED REPORTS Final Report [] Verified Date/Time/Personnel: 03/01/2020 05:25 EDT CONTRIBUTOR_SYSTEM, CO_PN NO GROWTH AFTER 72 HOURS Preliminary Report [] Verified Date/Time/Personnel: 02/29/2020 05:21 EDT CONTRIBUTOR_SYSTEM, CO_PN NO GROWTH AFTER 48 HOURS FINAL TO FOLLOW Preliminary Report [] Verified Date/Time/Personnel: 02/28/2020 05:54 EDT CONTRIBUTOR_SYSTEM, CO_PN NO GROWTH AT 12-24 HOURS Gram Stain [] Verified Date/Time/Personnel: 02/28/2020 00:07 EDT CONTRIBUTOR_SYSTEM, CO_PN NO POLYS SEEN, NO EPITHELIALS SEEN, NO ORGANISMS SEEN Normal [facility] Comment on above: Performed By: #### 6 34-6 ####[address] Bacteria identified Aer cx Nom (Unsp spec) [facility] Microbiology PROCEDURE: Culture Aerobic SOURCE: Tissue BODY SITE: COLLECTED DATE/TIME: 02/27/2020 14:31 EDT RECEIVED DATE/TIME: 02/27/2020 14:31 EDT START DATE/TIME: 02/27/2020 14:31 EDT FREE TEXT SOURCE: TISSUE-LT KNEE A INTERFACED REPORTS Final Report [] Verified Date/Time/Personnel: 03/01/2020 05:25 EDT CONTRIBUTOR_SYSTEM, CO_PN NO GROWTH AFTER 72 HOURS Preliminary Report [] Verified Date/Time/Personnel: 02/29/2020 05:20 EDT CONTRIBUTOR_SYSTEM, CO_PN NO GROWTH AFTER 48 HOURS FINAL TO FOLLOW Preliminary Report [] Verified Date/Time/Personnel: 02/28/2020 05:54 EDT CONTRIBUTOR_SYSTEM, CO_PN NO GROWTH AT 12-24 HOURS Gram Stain [] Verified Date/Time/Personnel: 02/28/2020 01:10 EDT CONTRIBUTOR_SYSTEM, CO_PN NO POLYS SEEN, NO EPITHELIALS SEEN, NO ORGANISMS SEEN Normal [facility] Comment on above: Performed By: #### 6 34-6 ####[facility] [address], [place] Culture Anaerobicon 02-27-20 20 Bacteria identified Anaer cx Nom (Unsp spec) [facility] Microbiology PROCEDURE: Culture Anaerobic SOURCE: Tissue BODY SITE: COLLECTED DATE/TIME: 02/27/2020 14:34 EDT RECEIVED DATE/TIME: 02/27/2020 14:34 EDT START DATE/TIME: 02/27/2020 14:34 EDT FREE TEXT SOURCE: TISSUE-LT KNEE D INTERFACED REPORTS Final Report [] Verified Date/Time/Personnel: 03/02/2020 01:11 EDT CONTRIBUTOR_SYSTEM, CO_PN NO ANAEROBES ISOLATED AFTER 4 DAYS. Preliminary Report [] Verified Date/Time/Personnel: 02/29/2020 01:13 EDT CONTRIBUTOR_SYSTEM, CO_PN NO ANAEROBES ISOLATED AFTER 48 HOURS, CULTURE WILL BE HELD FOR 4 DAYS. Preliminary Report [] Verified Date/Time/Personnel: 02/28/2020 00:04 EDT CONTRIBUTOR_SYSTEM, CO_PN CULTURE IN PROGRESS Normal [facility] Comment on above: Performed By: #### 9 [id number] #### [facility] [address] [place] [id number] Bacteria identified Anaer cx Nom (Unsp spec) [facility] Microbiology PROCEDURE: Culture Anaerobic SOURCE: Tissue BODY SITE: COLLECTED DATE/TIME: 02/27/2020 14:33 EDT RECEIVED DATE/TIME: 02/27/2020 14:33 EDT START DATE/TIME: 02/27/2020 14:33 EDT FREE TEXT SOURCE: TISSUE-LT KNEE C INTERFACED REPORTS Final Report [] Verified Date/Time/Personnel: 03/02/2020 01:11 EDT CONTRIBUTOR_SYSTEM, CO_PN NO ANAEROBES ISOLATED AFTER 4 DAYS. Preliminary Report [] Verified Date/Time/Personnel: 02/29/2020 01:13 EDT CONTRIBUTOR_SYSTEM, CO_PN NO ANAEROBES ISOLATED AFTER 48 HOURS, CULTURE WILL BE HELD FOR 4 DAYS. Preliminary Report [] Verified Date/Time/Personnel: 02/28/2020 00:04 EDT CONTRIBUTOR_SYSTEM, CO_PN CULTURE IN PROGRESS [facility] Comment on above: Performed By: #### 9 [id number] #### [facility] [address] [place] [address] Bacteria identified Anaer cx Nom (Unsp spec) [facility] Microbiology PROCEDURE: Culture Anaerobic SOURCE: Tissue BODY SITE: COLLECTED DATE/TIME: 02/27/2020 14:32 EDT RECEIVED DATE/TIME: 02/27/2020 14:32 EDT START DATE/TIME: 02/27/2020 14:32 EDT FREE TEXT SOURCE: TISSUE-LT KNEE B INTERFACED REPORTS Final Report [] Verified Date/Time/Personnel: 03/02/2020 01:12 EDT CONTRIBUTOR_SYSTEM, CO_PN NO ANAEROBES ISOLATED AFTER 4 DAYS. Preliminary Report [] Verified Date/Time/Personnel: 02/29/2020 01:14 EDT CONTRIBUTOR_SYSTEM, CO_PN NO ANAEROBES ISOLATED AFTER 48 HOURS, CULTURE WILL BE HELD FOR 4 DAYS. Preliminary Report [] Verified Date/Time/Personnel: 02/28/2020 00:04 EDT CONTRIBUTOR_SYSTEM, CO_PN CULTURE IN PROGRESS [facility] Comment on above: Performed By: #### 9 [id number] #### [facility] [address] [place] [address] Bacteria identified Anaer cx Nom (Unsp spec) [facility] Microbiology PROCEDURE: Culture Anaerobic SOURCE: Tissue BODY SITE: COLLECTED DATE/TIME: 02/27/2020 14:31 EDT RECEIVED DATE/TIME: 02/27/2020 14:31 EDT START DATE/TIME: 02/27/2020 14:31 EDT FREE TEXT SOURCE: TISSUE-LT KNEE A INTERFACED REPORTS Final Report [] Verified Date/Time/Personnel: 03/02/2020 01:12 EDT CONTRIBUTOR_SYSTEM, CO_PN NO ANAEROBES ISOLATED AFTER 4 DAYS. Preliminary Report [] Verified Date/Time/Personnel: 02/29/2020 01:14 EDT CONTRIBUTOR_SYSTEM, CO_PN NO ANAEROBES ISOLATED AFTER 48 HOURS, CULTURE WILL BE HELD FOR 4 DAYS. Preliminary Report [] Verified Date/Time/Personnel: 02/28/2020 00:04 EDT CONTRIBUTOR_SYSTEM, CO_PN CULTURE IN PROGRESS [facility] Comment on above: Performed By: #### 9 [id number] #### [facility] [address] [place] [address] Bacteria identified Anaer cx Nom (Unsp spec) [facility] Microbiology PROCEDURE: Culture Anaerobic SOURCE: Joint Fl BODY SITE: COLLECTED DATE/TIME: 02/27/2020 13:29 EDT RECEIVED DATE/TIME: 02/27/2020 13:29 EDT START DATE/TIME: 02/27/2020 13:29 EDT FREE TEXT SOURCE: JOINT FLUID-LT KNEE INTERFACED REPORTS Final Report [] Verified Date/Time/Personnel: 03/02/2020 01:12 EDT CONTRIBUTOR_SYSTEM, CO_PN NO ANAEROBES ISOLATED AFTER 4 DAYS. Preliminary Report [] Verified Date/Time/Personnel: 02/29/2020 01:14 EDT CONTRIBUTOR_SYSTEM, CO_PN NO ANAEROBES ISOLATED AFTER 48 HOURS, CULTURE WILL BE HELD FOR 4 DAYS. Preliminary Report [] Verified Date/Time/Personnel: 02/28/2020 00:05 EDT CONTRIBUTOR_SYSTEM, CO_PN CULTURE IN PROGRESS [facility] Comment on above: Performed By: #### 9 [id number] #### [facility] [address] [place] [address] Culture Funguson 02-27-2020 Fungus identified Cx Nom (Unsp spec) [facility] Microbiology PROCEDURE: Culture Fungus SOURCE: Tissue BODY SITE: COLLECTED DATE/TIME: 02/27/2020 14:34 EDT RECEIVED DATE/TIME: 02/27/2020 14:34 EDT START DATE/TIME: 02/27/2020 14:34 EDT FREE TEXT SOURCE: TISSUE-LT KNEE D INTERFACED REPORTS Final Report [] Verified Date/Time/Personnel: 03/28/2020 19:39 EST CONTRIBUTOR_SYSTEM, CO_PN NO FUNGUS GROWN AFTER 4 WEEKS Preliminary Report [] Verified Date/Time/Personnel: 02/28/2020 00:06 EDT CONTRIBUTOR_SYSTEM, CO_PN CULTURE IN PROGRESS CULTURE WILL BE UPDATED IF A FUNGUS (INCLUDING YEAST) IS GROWN. CULTURE WILL BE HELD FOR 1-4 WEEKS [facility] Comment on above: Performed By: #### 5 80-1 ####[facility] [address], [place] Fungus identified Cx Nom (Unsp spec) [facility] Microbiology PROCEDURE: Culture Fungus SOURCE: Tissue BODY SITE: COLLECTED DATE/TIME: 02/27/2020 14:33 EDT RECEIVED DATE/TIME: 02/27/2020 14:33 EDT START DATE/TIME: 02/27/2020 14:33 EDT FREE TEXT SOURCE: TISSUE-LT KNEE C INTERFACED REPORTS Final Report [] Verified Date/Time/Personnel: 03/28/2020 19:39 EST CONTRIBUTOR_SYSTEM, CO_PN NO FUNGUS GROWN AFTER 4 WEEKS Preliminary Report [] Verified Date/Time/Personnel: 02/28/2020 00:06 EDT CONTRIBUTOR_SYSTEM, CO_PN CULTURE IN PROGRESS CULTURE WILL BE UPDATED IF A FUNGUS (INCLUDING YEAST) IS GROWN. CULTURE WILL BE HELD FOR 1-4 WEEKS Normal [facility] Comment on above: Performed By: #### 9 [id number] #### [facility] [address] [place] [address] Fungus identified Cx Nom (Unsp spec) [facility] Microbiology PROCEDURE: Culture Fungus SOURCE: Tissue BODY SITE: COLLECTED DATE/TIME: 02/27/2020 14:31 EDT RECEIVED DATE/TIME: 02/27/2020 14:31 EDT START DATE/TIME: 02/27/2020 14:31 EDT FREE TEXT SOURCE: TISSUE-LT KNEE A INTERFACED REPORTS Final Report [] Verified Date/Time/Personnel: 03/28/2020 19:39 EST CONTRIBUTOR_SYSTEM, CO_PN NO FUNGUS GROWN AFTER 4 WEEKS Preliminary Report [] Verified Date/Time/Personnel: 02/28/2020 00:05 EDT CONTRIBUTOR_SYSTEM, CO_PN CULTURE IN PROGRESS CULTURE WILL BE UPDATED IF A FUNGUS (INCLUDING YEAST) IS GROWN. CULTURE WILL BE HELD FOR 1-4 WEEKS [facility] Comment on above: Performed By: #### 9 [id number] #### [facility] [address] [place] [address] Fungus identified Cx Nom (Unsp spec) [facility] Microbiology PROCEDURE: Culture Fungus SOURCE: Joint Fl BODY SITE: COLLECTED DATE/TIME: 02/27/2020 13:29 EDT RECEIVED DATE/TIME: 02/27/2020 13:29 EDT START DATE/TIME: 02/27/2020 13:29 EDT FREE TEXT SOURCE: JOINT FLUID-LT KNEE INTERFACED REPORTS Amended Report [] Verified Date/Time/Personnel: 03/28/2020 20:03 EST CONTRIBUTOR_SYSTEM, CO_PN NO FUNGUS GROWN AFTER 4 WEEKS Final Report [] Verified Date/Time/Personnel: 03/28/2020 19:28 EST CONTRIBUTOR_SYSTEM, CO_PN NO FUNGUS GROWN AFTER 1 WEEK Preliminary Report [] Verified Date/Time/Personnel: 02/28/2020 00:05 EDT CONTRIBUTOR_SYSTEM, CO_PN CULTURE IN PROGRESS CULTURE WILL BE UPDATED IF A FUNGUS (INCLUDING YEAST) IS GROWN. CULTURE WILL BE HELD FOR 1-4 WEEKS Normal [facility] Comment on above: Performed By: #### 9 [id number] #### [facility] [address] [place] [address] PACU I Nursingon 02-27-2020 PACU I Nursing CO NA PACU I Nursing Record Summary Primary Physician: Son Tena MD Finalized Date/Time: 02/27/20 16:16:07 Pt. Name: GREENALEKSANDAR/Sex: 1955 Female Med Rec #: [id number] Physician: Financial #: [id number] Pt. Type: A Room/Bed: / Admit/Disch: 02/27/20 10:15:00 - Institution: [facility] NA OR Main PACU I Case Times Entry 1 In PACU I 02/27/20 15:29:00 Ready for PACU I 02/27/20 16:15:00 Discharge Discharge from PACU 02/27/20 16:15:00 PACU I Discharge NA I Delay Reason Last Modified By: Unique Carreno RN 02/27/20 16:16:05 CO NA OR Main PACU I Case Attendees Entry 1 Case Attendee Unique Carreno RN Role Performed RN Last Modified By: Unique Carreno RN 02/27/20 15:32:58 Finalized By: Unique Carreno RN Document Signatures Signed By: Unique Carreno RN 02/27/20 16:16 Normal [facility] PreOp Nursingon 02-27-2020 PreOp Nursing CO NA PreOp Nursing Record Summary Primary Physician: Son Tena MD Finalized Date/Time: 02/27/20 13:04:15 Pt. Name: ALEKSANDAR GREEN Jillian /Sex: 1955 Female Med Rec #: [id number] Physician: Financial #: [id number] Pt. Type: A Room/Bed: / Admit/Disch: 02/27/20 10:15:00 - Institution: CO NA OR PreOp Case Times Entry 1 PreOp Case Times In Room Time 02/27/20 10:25:00 Out Room Time 02/27/20 13:02:00 Last Modified By: Argelia Ruelas RN 02/27/20 13:04:13 CO NA OR PreOp Case Attendees Entry 1 Case Attendee Cornelius Bird RN Role Performed RN Last Modified By: Gilma Mccord RN 02/27/20 10:32:28 Finalized By: Argelia Ruelas RN Document Signatures Signed By: Argelia Ruelas RN 02/27/20 13:04 [facility] Coronavirus (COVID-19/SARS-C oV-2) [facility] 02-24-2020 Employed in healthcare [facility] Comment on above: Performed By: #### 9 [id number] #### [facility] [address] [place] [address] First test U [facility] Comment on above: Performed By: #### 9 [id number] #### [facility] [address] [place], [place] [id number] ICU U [facility] Comment on above: Performed By: #### 9 [id number] #### [facility] [address] [place] [address] Illness or injury onset date and time [facility] Comment on above: Performed By: #### 9 [id number] #### [facility] [address] [place] [address] Patient was hospitalized because of this condition [facility] Comment on above: Performed By: #### 9 [id number] #### [facility] [address] [place] [address] status [facility] Comment on above: Performed By: #### 9 [id number] #### [facility] [address] [place] [address] Resides in congregate care setting [facility] Comment on above: Performed By: #### 9 [id number] #### [place] [address] SARS-CoV-2 (COVID-19) RNA HYUN+probe Ql (Resp) Not detected Normal NOTDET [facility] Comment on above: Result Comment: This test was performed via the Aptima SARS-CoV-2 Assay ([employer]), a Nucleic Acid Amplification Test (NAAT), and has been authorized by the FDA under an Emergency Use Authorization (EUA). The assay is validated for nasopharyngeal (CASING CREW), nasal, and oropharyngeal (OP) swab specimens. The Limit of Detection is 600 NDU/mL (NAAT Detectable Units/mL) which is comparable to other nucleic acid amplification tests (rt-PCR,NAAT) currently being used to test for SARS-CoV-2. Detection of SARS-CoV-2 may be affected by the sample collection, transport methods and patient factors (e.g., presence of symptoms, and/or stage of infection); therefore a negative result does not rule out the possibility of infection. For updated information, refer to the Center for Disease Control website: www.cdc.gov/coronavirus. Performed By: #### 9 [id number] #### [facility] [address] [place] [address] Symptomatic as defined by CDC U Normal [facility] Comment on above: Performed By: #### 9 [id number] #### [facility] [address] [place] [address] Vital Signs Date Time Vital Sign Value Performing Clinician Rajendra mitchell 09-23-2023 10:02-0400 Body height 157.[address] Maurice Salinas Work Phone: [facility] 09-23-2023 10:02-0400 Body mass index (BMI) [Ratio] 38 kg/m2 Dr. Maurice Salinas Work Phone: [facility] 09-23-2023 10:02-0400 Body temperature 98 [degF] Dr. Maurice Salinas Work Phone: [facility] 09-23-2023 10:02-0400 Body weight 94.[address] Maurice Salinas Work Phone: [facility] 09-23-2023 10:02-0400 Diastolic blood pressure 80 mm[Hg] Dr. Maurice Salinas Work Phone: [facility] 09-23-2023 10:02-0400 Heart rate 81 /min Dr. Maurice Salinas Work Phone: [facility] 09-23-2023 10:02-0400 Respiratory rate 17 /min Dr. Maurice Salinas Work Phone: [facility] 09-23-2023 10:02-0400 SaO2% (BldA) [Mass fraction] 96 % Dr. Maurice Salinas Work Phone: [facility] 09-23-2023 10:02-0400 Systolic blood pressure 132 mm[Hg] Dr. Maurice Salinas Work Phone: [facility] 06-24-2023 10:28-0500 Body mass index (BMI) [Ratio] 37.7 kg/m2 Dr. Maurice Salinas Work Phone: [facility] 06-24-2023 10:28-0500 Body temperature 97.9 [degF] Dr. Maurice Salinas Work Phone: [facility] 06-24-2023 10:28-0500 Body weight 93.[address] Maurice Salinas Work Phone: [facility] 06-24-2023 10:28-0500 Diastolic blood pressure 76 mm[Hg] Dr. Maurice Salinas Work Phone: [facility] 06-24-2023 10:28-0500 Heart rate 87 /min Dr. Maurice Salinas Work Phone: [facility] 06-24-2023 10:28-0500 Respiratory rate 15 /min Dr. Maurice Salinas Work Phone: [facility] 06-24-2023 10:28-0500 SaO2% (BldA) [Mass fraction] 96 % Dr. Maurice Salinas Work Phone: [facility] 06-24-2023 10:28-0500 Systolic blood pressure 126 mm[Hg] Dr. Maurice Salinas Work Phone: [facility] 12-17-2022 11:27-0400 Body height 157.[address] Maurice Salinas Work Phone: [facility] 12-17-2022 11:27-0400 Body mass index (BMI) [Ratio] 36.6 kg/m2 Dr. Maurice Salinas Work Phone: [facility] 12-17-2022 11:27-0400 Body temperature 98.8 [degF] Dr. Maurice Salinas Work Phone: [facility] 12-17-2022 11:27-0400 Body weight 90.[address] Maurice Salinas Work Phone: [facility] 12-17-2022 11:27-0400 Diastolic blood pressure 72 mm[Hg] Dr. Maurice Salinas Work Phone: [facility] 12-17-2022 11:27-0400 Heart rate 78 /min Dr. Maurice Salinas Work Phone: [facility] 12-17-2022 11:27-0400 Respiratory rate 16 /min Dr. Maurice Salinas Work Phone: [facility] 12-17-2022 11:27-0400 SaO2% (BldA) [Mass fraction] 98 % Dr. Maurice Salinas Work Phone: [facility] 12-17-2022 11:27-0400 Systolic blood pressure 114 mm[Hg] Dr. Maurice Salinas Work Phone: [facility] 09-09-2022 14:30-0400 Body height 157.[address] Maurice Salinas Work Phone: [facility] 09-09-2022 14:30-0400 Body mass index (BMI) [Ratio] 36 kg/m2 Dr. Maurice Salinas Work Phone: [facility] 09-09-2022 14:30-0400 Body temperature 98.9 [degF] Dr. Maurice Salinas Work Phone: [facility] 09-09-2022 14:30-0400 Body weight 89.[address] Maurice Salinas Work Phone: [facility] 09-09-2022 14:30-0400 Diastolic blood pressure 98 mm[Hg] Dr. Maurice Salinas Work Phone: [facility] 09-09-2022 14:30-0400 Heart rate 90 /min Dr. Maurice Salinas Work Phone: [facility] 09-09-2022 14:30-0400 Respiratory rate 16 /min Dr. Maurice Salinas Work Phone: [facility] 09-09-2022 14:30-0400 SaO2% (BldA) [Mass fraction] 96 % Dr. Maurice Salinas Work Phone: [facility] 09-09-2022 14:30-0400 Systolic blood pressure 142 mm[Hg] Dr. Maurice Salinas Work Phone: [facility] 08-27-2022 08:22-0400 Body height 157.[address] Maurice Salinas Work Phone: [facility] 08-27-2022 08:22-0400 Body mass index (BMI) [Ratio] 35.8 kg/m2 Dr. Maurice Salinas Work Phone: [facility] 08-27-2022 08:22-0400 Body temperature 97.2 [degF] Dr. Maurice Salinas Work Phone: [facility] 08-27-2022 08:22-0400 Body weight 88.[address] Maurice Salinas Work Phone: [facility] 08-27-2022 08:22-0400 Diastolic blood pressure 78 mm[Hg] Dr. Maurice Salinas Work Phone: [facility] 08-27-2022 08:22-0400 Heart rate 78 /min Dr. Maurice Salinas Work Phone: [facility] 08-27-2022 08:22-0400 Respiratory rate 16 /min Dr. Maurice Salinas Work Phone: [facility] 08-27-2022 08:22-0400 SaO2% (BldA) [Mass fraction] 97 % Dr. Maurice Salinas Work Phone: [facility] 08-27-2022 08:22-0400 Systolic blood pressure 130 mm[Hg] Dr. Maurice Salinas Work Phone: [facility] 07-29-2022 12:57-0500 Body mass index (BMI) [Ratio] 35.4 kg/m2 Dr. Maurice Salinas Work Phone: [facility] 07-29-2022 12:57-0500 Body temperature 98.5 [degF] Dr. Maurice Salinas Work Phone: [facility] 07-29-2022 12:57-0500 Body weight 87.[address] Maurice Salinas Work Phone: [facility] 07-29-2022 12:57-0500 Diastolic blood pressure 90 mm[Hg] Dr. Maurice Salinas Work Phone: [facility] 07-29-2022 12:57-0500 Heart rate 89 /min Dr. Maurice Salinas Work Phone: [facility] 07-29-2022 12:57-0500 Respiratory rate 16 /min Dr. Maurice Salinas Work Phone: [facility] 07-29-2022 12:57-0500 SaO2% (BldA) [Mass fraction] 98 % Dr. Maurice Salinas Work Phone: [facility] 07-29-2022 12:57-0500 Systolic blood pressure 140 mm[Hg] Dr. Maurice Salinas Work Phone: [facility] 05-06-2022 10:53-0500 Body height 157.[address] Maurice Salians Work Phone: [facility] Work Phone: 05-06-2022 10:53-0500 Body mass index (BMI) [Ratio] 36.6 kg/m2 Dr. Maurice Salinas Work Phone: [facility] Work Phone: 05-06-2022 10:53-0500 Body temperature 98.1 [degF] Dr. Maurice Salinas Work Phone: [facility] Work Phone: 05-06-2022 10:53-0500 Body weight 90.[address] Maurice Salinas Work Phone: [facility] Work Phone: 05-06-2022 10:53-0500 Diastolic blood pressure 98 mm[Hg] Dr. Maurice Salinas Work Phone: [facility] Work Phone: 05-06-2022 10:53-0500 Heart rate 81 /min Dr. Maurice Salinas Work Phone: [facility] Work Phone: 05-06-2022 10:53-0500 Respiratory rate 16 /min Dr. Maurice Salinas Work Phone: [facility] Work Phone: 05-06-2022 10:53-0500 SaO2% (BldA) [Mass fraction] 95 % Dr. Maurice Salinas Work Phone: [facility] Work Phone: 05-06-2022 10:53-0500 Systolic blood pressure 134 mm[Hg] Dr. Maurice Salinas Work Phone: [facility] Work Phone: 02-11-2022 14:56-0400 Body mass index (BMI) [Ratio] 36.1 kg/m2 Dr. Maurice Salinas Work Phone: [facility] Work Phone: 02-11-2022 14:56-0400 Body temperature 97.2 [degF] Dr. Maurice Salinas Work Phone: [facility] Work Phone: 02-11-2022 14:56-0400 Body weight 89.[address] Maurice Salinas Work Phone: [facility] Work Phone: 02-11-2022 14:56-0400 Diastolic blood pressure 98 mm[Hg] Dr. Maurice Salinas Work Phone: [facility] Work Phone: 02-11-2022 14:56-0400 Heart rate 90 /min Dr. Maurice Salinas Work Phone: [facility] Work Phone: 02-11-2022 14:56-0400 Respiratory rate 16 /min Dr. Maurice Salinas Work Phone: [facility] Work Phone: 02-11-2022 14:56-0400 SaO2% (BldA) [Mass fraction] 97 % Dr. Maurice Salinas Work Phone: [facility] Work Phone: 02-11-2022 14:56-0400 Systolic blood pressure 144 mm[Hg] Dr. Maurice Salinas Work Phone: [facility] Work Phone: 10-30-2021 11:31-0400 Body height 157.[address] Maurice Salinas Work Phone: [facility] Work Phone: 10-30-2021 11:31-0400 Body mass index (BMI) [Ratio] 35.3 kg/m2 Dr. Maurice Salinas Work Phone: [facility] Work Phone: 10-30-2021 11:31-0400 Body temperature 98.2 [degF] Dr. Maurice Salinas Work Phone: [facility] Work Phone: 10-30-2021 11:31-0400 Body weight 87.[address] Maurice Salinas Work Phone: [facility] Work Phone: 10-30-2021 11:31-0400 Diastolic blood pressure 88 mm[Hg] Dr. Maurice Salinas Work Phone: [facility] Work Phone: 10-30-2021 11:31-0400 Heart rate 69 /min Dr. Maurice Salinas Work Phone: [facility] Work Phone: 10-30-2021 11:31-0400 Respiratory rate 14 /min Dr. Maurice Salinas Work Phone: [facility] Work Phone: 10-30-2021 11:31-0400 SaO2% (BldA) [Mass fraction] 96 % Dr. Maurice Salinas Work Phone: [facility] Work Phone: 10-30-2021 11:31-0400 Systolic blood pressure 132 mm[Hg] Dr. Maurice Salinas Work Phone: [facility] Work Phone: 07-23-2021 15:59-0500 Body mass index (BMI) [Ratio] 35.1 kg/m2 Dr. Maurice Salinas Work Phone: [facility] Work Phone: 07-23-2021 15:59-0500 Body temperature 97.3 [degF] Dr. Maurice Salinas Work Phone: [facility] Work Phone: 07-23-2021 15:59-0500 Body weight 87.[address] Maurice Salinas Work Phone: [facility] Work Phone: 07-23-2021 15:59-0500 Diastolic blood pressure 90 mm[Hg] Dr. Maurice Salinas Work Phone: [facility] Work Phone: 07-23-2021 15:59-0500 Heart rate 104 /min Dr. Maurice Salinas Work Phone: [facility] Work Phone: 07-23-2021 15:59-0500 Respiratory rate 16 /min Dr. Maurice Salinas Work Phone: [facility] Work Phone: 07-23-2021 15:59-0500 SaO2% (BldA) [Mass fraction] 96 % Dr. Maurice Salinas Work Phone: [facility] Work Phone: 07-23-2021 15:59-0500 Systolic blood pressure 146 mm[Hg] Dr. Maurice Salinas Work Phone: [facility] Work Phone: 07-23-2021 14:59-0500 Body height 157.[address] Maurice Salinas Work Phone: [facility] Work Phone: 07-23-2021 14:59-0500 Body mass index (BMI) [Ratio] 35.1 kg/m2 Dr. Maurice Salinas Work Phone: [facility] Work Phone: 07-23-2021 14:59-0500 Body temperature 97.3 [degF] Dr. Maurice Salinas Work Phone: [facility] Work Phone: 07-23-2021 14:59-0500 Body weight 87.[address] Maurice Salinas Work Phone: [facility] Work Phone: 07-23-2021 14:59-0500 Diastolic blood pressure 90 mm[Hg] Dr. Maurice Sailnas Work Phone: [facility] Work Phone: 07-23-2021 14:59-0500 Heart rate 104 /min Dr. Maurice Salinas Work Phone: [facility] Work Phone: 07-23-2021 14:59-0500 Respiratory rate 16 /min Dr. Maurice Salinas Work Phone: [facility] Work Phone: 07-23-2021 14:59-0500 SaO2% (BldA) [Mass fraction] 96 % Dr. Maurice Salinas Work Phone: [facility] Work Phone: 07-23-2021 14:59-0500 Systolic blood pressure 146 mm[Hg] Dr. Maurice Salinas Work Phone: [facility] Work Phone: Encounters Encounter Date Encounter Type Care Provider Facility Start: 04-27-2024 End: 04-27-2024 ambulatory Maurice Salinas Facility:[facility] [place] Start: 04-08-2024 End: 04-08-2024 ambulatory Maurice Salinas Facility:[facility] Start: 01-27-2024 End: 01-27-2024 ambulatory Maurice Salinas Facility:[facility] Start: 10-27-2023 End: 10-27-2023 ambulatory Maurice Salinas Facility:[facility] Start: 09-23-2023 End: 09-23-[address] Maurice Salinas Work Phone: [facility] Work Phone: Start: 09-23-2023 End: 09-23-[address] Maurice Salinas Work Phone: [facility] Work Phone: Start: 09-23-2023 End: 09-23-2023 ambulatory Maurice Salinas Facility:[facility] Start: 06-24-2023 End: 06-24-[address] Maurice Salinas Work Phone: [facility] Work Phone: Start: 06-24-2023 End: 06-24-2023 ambulatory Maurice Salinas Facility:[facility] [place] Start: 03-06-2023 End: 03-06-[address] Maurice Salinas Work Phone: [facility] Work Phone: Start: 03-06-2023 End: 03-06-[address] Maurice Salinas Work Phone: [facility] Work Phone: Start: 12-17-2022 End: 12-17-[address] Maurice Salinas Work Phone: [facility] Work Phone: Start: 09-09-2022 End: 09-09-[address] Maurice Salinas Work Phone: [facility] Start: 08-27-2022 End: 08-27-2022 Non-patient / Non-visit Dr. Maurice Salinas Work Phone: [facility] Start: 08-27-2022 End: 08-27-[address] Maurice Salinas Work Phone: [facility] Work Phone: Start: 08-27-2022 End: 08-27-2022 Encounter for other preprocedural examination Dr. Maurice Salinas Work Phone: [facility] Start: 08-27-2022 End: 08-27-[address] Maurice Salinas Work Phone: [facility] Start: 08-25-2022 End: 08-25-[address] Maurice Salinas Work Phone: [facility] Work Phone: Start: 08-25-2022 End: 08-25-[address] Maurice Salinas Work Phone: [facility] Start: 07-29-2022 End: 07-29-[address] Maurice Salinas Work Phone: [facility] Start: 05-06-2022 End: 05-06-[address] Maurice Salinas Work Phone: [facility] Work Phone: Start: 05-06-2022 End: 05-06-[address] Maurice Salinas Work Phone: [facility] Start: 02-11-2022 End: 02-11-[address] Maurice Salinas Work Phone: [facility] Start: 11-08-2021 End: 11-08-[address] Maurice Salinas Work Phone: [facility] Start: 10-30-2021 End: 10-30-[address] Maurice Salinas Work Phone: [facility] Start: 08-15-2021 End: 08-15-[address] Maurice Salinas Work Phone: [facility] Start: 07-23-2021 End: 07-23-[address] Maurice Salinas Work Phone: [facility] Start: 05-23-[address] Shaan Salinas Work Phone: [facility]Physical Therapy Procedures Date Procedure Procedure Detail Performing Clinician Start: 03-06-2023 Screening mammography Cecelia Salinas Work Phone: Start: 11-08-2021 Screening mammography Cecelia Salinas Work Phone: Immunizations Immunization Date Immunization Notes Care Provider Fa cility 02-22-[address] Maurice Salinas Work Phone: [facility] 03-08-[address] Maurice Salinas Work Phone: [facility] 11-24-2013 tetanus and diphther ia toxoids, adsorbed, preservative free, for adult use (2 Lf of tetanus toxoid and 2 Lf of diphtheria toxoid) Dr. Maurice Salinas Work Phone: [facility] 03-29-[address] Maurice Salinas Work Phone: [facility] 03-29-[address] Vipul Salinas Work Phone: [facility] Work Phone: 03-29-2010 pneumococcal vaccine , unspecified formulation Dr. Maurice Salinas Work Phone: [facility] Payers Date Payer Category Payer Self-pay [id number] 2023 Medicare [id number] 2023 Unknown [id number] 2006 Unknown [id number] Unknown [id number] Unknown [id number] [id number] [id number] Unknown [id number] 2.16.8 [id number] Unknown [id number] 2.16.8 [id number] Unknown [id number] 2.16.8 [id number] Unknown [id number] 2.16.8 [id number] Unknown [id number] [id number] Unknown [id number] [id number] [id number] Social History Date Type Detail Facility Start: 07-23-2021 End: 06-24-2023 Tobacco smoking status NHIS Unknown if ever smoked [facility] Start: 10-21-2019 None [facility] Start: 10-21-2019 With Family [facility] Start: 09-19-2020 Non-smoker [facility] Start: 1955 Sex Assigned At Female [facility] Clinical Notes 02-27-2020 to 09-18-2020 Note Date & Type Note Facility 09-18-2020 [facility] Discharge summary Patient: ALEKSANDAR GREEN MRN: [id number] Age: 65 years Sex: Female : 1955 Associated Diagnoses: None Author: Sherri Martins Supervising Physician Comments Documentation By: Physician Special Officer Automat. Discharge Information Admit Date: 09/06/20 21:34 Discharge Date: 09/10/20 18:20 Discharge Disposition: Home with home care 06 Reason For Visit: POST OP INFECTION Admitting Physician: Son Tena MD Attending Physician: Son Tena MD Primary Care Physician: Physician, PCP Unknown Active/Final Diagnosis(es) LEFT TKA INFECTION . Hospital Course Hospital Course The patient had the above procedure for the included diagnosis during their hospital stay. After she was admitted to the hospital for medical management, PT and DVT prophylaxis regimen initiation. ID was consulted for antibiotic management. She was discharged home in a stable, good and improving state after an uncomplicated stay.. Procedures Performed PROCEDURES Incision and Drainage Left Knee with Poly Exchange ([id number]) on 09/07/2020 at 65 Years. Comments: 09/07/2020 08:44 NENA - Emre ANTUNEZ , Raquel Incision and Drainage Left Knee with Poly Exchange. Medications Discharge Medications BuPROPion (Wellbutrin XL 150 mg) 1 Tab = 150 mg By Mouth Bedtime CeFAZolin (ceFAZolin 2 g/50 mL intravenous solution) 2g Intravenous every 8 hours x 42 Day(s) acetaminophen-HYDROcodone (acetaminophen-HYDROcodone 325 mg-5 mg oral tablet) 2 Tab By Mouth Tablet every 4 hours, As Needed Pain - Moderate Dr. Tena has called this into your home pharmacy from the office. Last Dose: 09/10/2020 11:46 cholecalciferol (Vitamin D3 2000 intl units oral capsule) 1 Cap = 2,000 Unit By Mouth Bedtime citalopram (Citalopram 10 mg oral tablet) 1 Tab By Mouth Bedtime meclizine (meclizine 25 mg oral tablet) 1 Tab = 25 mg By Mouth Twice a day, As Needed Dizziness multivitamin 1 Tab By Mouth Bedtime multivitamin (Vitamin B Complex oral tablet, extended release) 1 Tab By Mouth Bedtime omeprazole (omeprazole 40 mg oral delayed release capsule) 1 Cap = 40 mg By Mouth Bedtime simvastatin (simvastatin 10 mg oral tablet) 1 Tab = 10 mg By Mouth Bedtime sodium chloride (sodium chloride 0.9% injectable kit) 20 mL = 0.18 Gm IV Push As Needed, As Needed See Comments Dispense quantity sufficient to flush picc line with antibiotic therapy per protocol. zolpidem (Ambien CR 12.5 mg oral tablet, extended release) 1 Tab = 12.5 mg By Mouth Bedtime, As Needed Insomnia/Sleep Discontinued Medication Information No discontinued medication information charted Non-medication prescriptions No non-medication prescriptions charted Immunizations No vaccinations charted Allergies NSAIDs: Severe, Bleeding sulfa drugs: Unknown, Unknown penicillins: Unknown, Unknown Results Review Discharge Lab Results 09/09/20 05:10, Hemoglobin = 12.0 gm/dL 09/09/20 05:10, Hematocrit = 36.2 % 09/09/20 05:10, WBC Count = 6.5 thou/mcL 09/09/20 05:10, Platelet Count = 224 thou/mcL 09/06/20 22:59, PT = 15.2 Sec H 09/06/20 22:59, INR = 1.17 09/10/20 02:50, Sodium Level = 136 mMol/L 09/10/20 02:50, Potassium Level = 4.4 mMol/L 09/10/20 02:50, Creatinine = 0.65 mg/dL 09/10/20 02:50, BUN = 13 mg/dL 09/10/20 02:50, Glucose Level = 97 mg/dL Pending Labs/ Orders Culture AFB and Stain: 09/10/2020 10:56 Culture Fungus: 09/10/2020 10:56 Culture AFB and Stain: 09/10/2020 10:56 Culture Fungus: 09/10/2020 10:56 Culture AFB and Stain: 09/10/2020 10:56 Culture Fungus: 09/10/2020 10:56 Culture AFB and Stain: 09/10/2020 10:56 Culture Fungus: 09/10/2020 10:56 Measurements (Last Charted) Weight: 69.00 kg /152 lbs 2 oz (Pt reported) (09/06/20 20:58:00) Height: 157.48 cm /62.00 in (Pt reported) (09/06/20 20:58:00) Discharge Plan Discharge Instructions for the patient No discharge instructions charted Follow Up Appointments Provider: Son Tena MD Specialty: Orthopaedic Surg Address: [address] [address] (1) Date: 09/20/20 03:45 pm Comment: Please arrive 10 minutes early and bring your photo ID and insurance cards. Provider: Abdias Dial MD Specialty: Infectious Disease Address: [address] [facility] [address] (1) Date: Call for an Appointment Comment: 1) call soon for an appointment with Dr. Dial in 4-5 weeks, 2) you will be on IV antibiotic for 6 to 8 weeks 3) every Thursday the nursing staff will collect blood work (CBC,SR,CRP,Creat) and fax to Dr. Dial ([phone]), 4) call sooner for fever, chills, nausea, vomiting, diarrhea, rash, pain in your PICC arm or worsening condtion of your wound. Provider: Bro[facility] Specialty: Address: [facility] [place] [address] Office: [phone] Date: 1 to 2 days Patient Education Given PICC Home Guide, Incision and Drainage, Pain Medicine Instructions, [id number] (more content not included)... [facility] 09-11-2020 Surgery Surgical operation note DICTATED BY:SON TENA MD SERVICE DATE:09/07/2020 AMENDED TO CORRECT FIN PREOPERATIVE DIAGNOSIS: Infected left total knee arthroplasty. POSTOPERATIVE DIAGNOSIS: Infected left total knee arthroplasty. PROCEDURE: Irrigation, debridement and poly exchange, infected left total knee arthroplasty. SURGEON: Son Tena MD. ANESTHESIA: General. HISTORY: The patient is a 65-year-old female with a history of a left knee revision, which was performed approximately 8 months ago. She was functional, asymptomatic and doing very well until acute onset of pain 2 days ago. She then spiked a fever that night of 102. She was evaluated yesterday in the office. Aspiration was performed. Cell count came back with 7000 white blood cells. The patient was directly admitted and scheduled for the OR this morning for a poly exchange washout. DETAILS OF PROCEDURE: The patient was brought to the operating room and placed on the OR table in the supine position. After adequate induction of general anesthesia, the left lower extremity was prepped and draped in normal sterile fashion. Previous midline incision was made. Dissection was carried sharply down through skin and subcutaneous tissue to the extensor mechanism. Medial parapatellar arthrotomy was performed. Tissue and fluid were sent for culture. A full synovectomy was performed. Poly liner was removed. The posterior aspect of the knee was debrided. The knee was thoroughly lavaged using 9 L of pulse lavage as well as 1 liter of Bactisure, also Betadine and chlorhexidine scrubs. The knee was then inspected for any further questionable tissue and this was debrided. A new size 5, 10 mm poly was opened and placed. Closure was performed using #1 Ethicon barbed suture, 2-0 PDS and elzia on the skin. Deep to the retinacular closure, 2 g of vancomycin, 2 g of tobramycin were placed. A bulky sterile dressing was applied. The patient was transferred to the recovery room in stable condition without any complications. ALEKSANDAR GREEN Birthdate: 1955 #: [id number] D/09/07/2020 09:11:07 T/09/07/2020 09:51:14 VOICE JOB ID:[id number] Bentley thanks you for the opportunity to care for your patient. DID: [id number] [facility] 09-11-2020 Hospital Progress note Patient: ALEKSANDAR GREEN MRN: [id number] Age: 65 years Sex: Female : 1955 Associated Diagnoses: None Author: Jayro ALFARO , Abdias Rodriguez Assessment 1. Knee: Stable after debridement. Intraoperative cultures without growth. 2. Disposition: Discharge today okay with me. Discussed with patient, case management, family at the bedside, medications reconciled and sent to her home infusion pharmacy. Discussed with PIC team today. Abdias Dial MD Infectious Diseases Subjective Comfortable today. Objective Vital Signs (Past 36 Hours) Temp .9 (09/10 11:44) Min:(Oral) 97.4 (09/10 04:25) Max: 98.1 (09/09 15:39) Pulse (09/10 11:44) Min: 73 (09/10 04:25) Max: 90 (09/10 08:53) Resp (09/10 11:44) Min: 16 (09/10 11:44) Max: 16 (09/10 11:44) Pulse Ox % (09/10 11:44) Min: 94 % (09/10 00:35) Delivery: Room air Max: 97 % (09/10 08:53) Pain Score (09/10 12:46) Min: 1 (09/09 14:12) Max: 6 (09/10 03:32) BP Last Charted: 127/86 (09/10 11:44) Systolic Min: 125/76 (09/10 04:25) Systolic Max: 156/74 (09/09 11:41) Diastolic Min: 156/74 (09/09 11:41) Diastolic Max: 144/89 (09/10 00:35) EXAMINATION: GENERAL: Comfortable, in no distress HEENT: symmetric, OP moist, no lesions NECK: Supple LUNGS: Breathing is unlabored, clear HEART: regular ABDOMEN: soft, non tender, BS normal EXTREMITY: minimal edema MENTAL STATUS: comfortable SKIN: No lesions noted WOUNDS: LINES: uncomplicated I have evaluated for the presence of nausea, vomiting, diarrhea, or rash, or IV site issues by personally discussing these with the patient. If the patient is unable, I have reviewed these with either the nurse or the electronic medical record. Pertinent findings can be found in impression and plan. Last Charted Vital Signs Temperature: 97.9 (09/10 11:44) Pulse: 84 (09/10 11:44) Respiration: 16 (09/10 11:44) BP: 127/86 (09/10 11:44) Pulse Ox: 96 (09/10 11:44) Oxygen Delivery: Room air (09/10 16:40) Pain Score: 2 (09/10 12:46) Results Review Labs - Last 36 hours (Max 2 / lab test) CHEMISTRY Sodium 136 (09/10 02:50) Potassium 4.4 (09/10 02:50) Chloride 102 (09/10 02:50) CO2 31 (09/10 02:50) Glucose 97 (09/10 02:50) Glucose POCT No result BUN 13 (09/10 02:50) Creatinine 0.65 (09/10 02:50) Calcium Total 9.0 (09/10 02:50) Magnesium 2.0 (09/10 02:50) HEMATOLOGY WBC No result RBC No result Hb No result Hematocrit No result Platelets No result MCV No result MCH No result RDW No result MCHC No result Neutrophil Ab No result Monocyte Ab No result Eosinophil Ab No result Basophil Ab No result Lymphocyte Ab No result OTHER LABS Anion Gap 3.0 mMol/L (09/10 02:50) 8.0 mMol/L (09/09 05:10) Est CrCl IBW (mL/min)-RX 68.25 mL/min (09/10 02:50) 75.19 mL/min (09/09 05:10) GFR Est. Non >60 mL/min (09/09 05:10) GFR Est. Deepa >60 mL/min (09/09 05:10) WBC Count 6.5 thou/mcL (09/09 05:10) Red Blood Cell Count 4.04 million/mcL (09/09 05:10) Hemoglobin 12.0 gm/dL (09/09 05:10) Hematocrit 36.2 % (09/09 05:10) MCV 89.6 FL (09/09 05:10) MCH 29.7 Picograms (09/09 05:10) MCHC 33.1 gm/dL (09/09 05:10) RDW 14.0 % (09/09 05:10) Platelet Count 224 thou/mcL (09/09 05:10) MPV 8.2 FL (09/09 05:10) Neutrophil 69.4 % (09/09 05:10) Lymphocyte 17.2 % (09/09 05:10) Monocyte 10.8 % (09/09 05:10) Eosinophil 2.1 % (09/09 05:10) Basophil 0.5 % (09/09 05:10) Neutrophil Absolute 4.50 thou/mcL (09/09 05:10) Lymphocyte Absolute 1.10 thou/mcL (09/09 05:10) Monocyte Absolute 0.70 thou/mcL (09/09 05:10) Eosinophil Absolute 0.10 thou/mcL (09/09 05:10) Basophil Absolute 0.00 thou/mcL (09/09 05:10) List of X-rays performed in last 36 hours No X-rays charted within the last 36 hours I have reviewed the available microbiologic data available at the time of my evaluation. I have reviewed the current antimicrobial regimen for appropriateness. I have discussed this information with the pharmacy or with the microbiology laboratory as necessary. I have reviewed the available radiographic data. Pertinent findings may be mentioned in the impression and plan. Health Status Allergies Allergic Reactions (Selected) Severe NSAIDs- Bleeding. Unknown Penicillins- Unknown. Sulfa drugs- Unknown. Medication List (Selected) Inpatient Medications Ordered Ambien*: 5 mg, PO, Bedtime, PRN: Insomnia/Sleep BuPROPion XL: 150 mg, PO, Bedtime CeFAZolin: 2 Gm, 40 mL/hr, IV, Q8h Colace: 100 mg, PO, BID Milk of Magnesia 8%: 800 mg, PO, Bedtime, PRN: Constipation Cardinal 5 mg/325 m Tab, PO, Q4h, PRN: Pain - Moderate Saline Flush*: 10 mL, IV Push, Q8h S (more content not included)... [facility] 09-10-2020 Physician Hospita l Discharge summary CLINICAL SUMMARY Please take this summary document to your follow up appointments. [facility] 09/10/20 17:59 [address] [place] [address] PATIENT INFORMATION Name: ALEKSANDAR GREEN Address: [address] [place] [id number] Age: 65 Years Phone: [phone] : 1955 12:00 MRN: ([id number] Sex: Female Race: White Ethnicity: Not Hispan/Lat [facility] Nurse Unit/Bed: ([place] [address] Admit Date: 09/06/2020 21:34 PCP: Physician, PCP Unknown PHYSICIANS INVOLVED WITH CARE Attending Physicians: Son Tena MD - Orthopaedic Surg Admitting Physician: Son Tena MD - Orthopaedic Surg Primary Care Physician:Physician, PCP Unknown,Family Practice,,, - Consults: Jayro ALFARO , Abdias Rodriguez - Infectious Disease Ambika ALFARO, Nick Patel - Internal Medicine Problems Active PICC (peripherally inserted central catheter) in place (09/10/2020) GERD - Gastro-esophageal reflux disease Anxiety High cholesterol Infection Allergies NSAIDs (Bleeding) sulfa drugs (Unknown) penicillins (Unknown) Procedures Incision AND drainage (09/07/2020) MEASUREMENTS: Last Charted: Weight: 69.00 kg /152 lbs 2 oz ( 09/06/20 20:58:00 ) VITAL SIGNS: Last Charted: Pulse Rate: 84 BPM (09/10 11:44) Blood Pressure: 127/86 mm Hg (09/10 11:44) Pain Score: 2(09/10 12:46) Last Bowel Movement: Date/Time: 09/10 16:41 09/10/2020 00:00 MENTAL STATUS: Level of Conciousness: Alert (09/10 16:41) Orientation: Oriented x 4 (09/10 16:41) WOUND ASSESSMENT: Wound Type Wound Location Left, Knee MEDICATIONS ORDERED / RECOMMENDED TO BE CONTINUED for: ALEKSANDAR GREEN acetaminophen-HYDROcodone (acetaminophen-HYDROcodone 325 mg-5 mg oral tablet) 2 Tab(s) By Mouth every 4 hours as needed Pain - Moderate. Dr. Tena has called this into your home pharmacy from the office.. BuPROPion (Wellbutrin XL 150 mg) 1 Tab(s) By Mouth Bedtime. CeFAZolin (ceFAZolin 2 g/50 mL intravenous solution) 2g Intravenous every 8 hours for 42 Days. Refills: 0. cholecalciferol (Vitamin D3 2000 intl units oral capsule) 1 Capsule By Mouth Bedtime. citalopram (Citalopram 10 mg oral tablet) 1 Tab(s) By Mouth Bedtime. meclizine (meclizine 25 mg oral tablet) 1 Tab(s) By Mouth Twice a day as needed Dizziness. multivitamin 1 Tab(s) By Mouth Bedtime. multivitamin (Vitamin B Complex oral tablet, extended release) 1 Tab(s) By Mouth Bedtime. omeprazole (omeprazole 40 mg oral delayed release capsule) 1 Capsule By Mouth Bedtime. simvastatin (simvastatin 10 mg oral tablet) 1 Tab(s) By Mouth Bedtime. sodium chloride (sodium chloride 0.9% injectable kit) 20 Milliliter IV Push As Needed as needed See Comments. Dispense quantity sufficient to flush picc line with antibiotic therapy per protocol.. Refills: 0. zolpidem (Ambien CR 12.5 mg oral tablet, extended release) 1 Tab(s) By Mouth Bedtime as needed Insomnia/Sleep. MEDICATION CHANGE DETAILS NEW MEDICATIONS [facility], [address] [place] [address] [address] [place], [place] [id number], [phone] CeFAZolin (ceFAZolin 2 g/50 mL intravenous solution) 2g Intravenous every 8 hours for 42 Days. Refills: 0. Comment sodium chloride (sodium chloride 0.9% injectable kit) 20 Milliliter IV Push As Needed as needed See Comments. Dispense quantity sufficient to flush picc line with antibiotic therapy per protocol.. Refills: 0. Comment UPDATED MEDICATIONS Other Medications Start: acetaminophen-HYDROcodone (acetaminophen-HYDROcodone 325 mg-5 mg oral tablet) 2 Tab(s) By Mouth every 4 hours as needed Pain - Moderate. Dr. Tena has called this into your home pharmacy from the office.. Comment Start: BuPROPion (Wellbutrin XL 150 mg) 1 Tab(s) By Mouth Bedtime. Comment Start: cholecalciferol (Vitamin D3 2000 intl units oral capsule) 1 Capsule By Mouth Bedtime. Comment Start: multivitamin 1 Tab(s) By Mouth Bedtime. Comment Start: multivitamin (Vitamin B Complex oral tablet, extended release) 1 Tab(s) By Mouth Bedtime. Comment Start: zolpidem (Ambien CR 12.5 mg oral tablet, extended release) 1 Tab(s) By Mouth Bedtime as needed Insomnia/Sleep. Comment UNCHANGED MEDICATIONS Other Medications citalopram (Citalopram 10 mg oral tablet) 1 Tab(s) By Mouth Bedtime. Comment meclizine (meclizine 25 mg oral tablet) 1 Tab(s) By Mouth Twice a day as needed Dizziness. Comment (more content not included)... [facility] 09-10-2020 Surgery Surgical operation note DICTATED BY:SON TENA MD SERVICE DATE:09/07/2020 PREOPERATIVE DIAGNOSIS: Infected left total knee arthroplasty. POSTOPERATIVE DIAGNOSIS: Infected left total knee arthroplasty. PROCEDURE: Irrigation, debridement and poly exchange, infected left total knee arthroplasty. SURGEON: Son Tena MD. ANESTHESIA: General. HISTORY: The patient is a 65-year-old female with a history of a left knee revision, which was performed approximately 8 months ago. She was functional, asymptomatic and doing very well until acute onset of pain 2 days ago. She then spiked a fever that night of 102. She was evaluated yesterday in the office. Aspiration was performed. Cell count came back with 7000 white blood cells. The patient was directly admitted and scheduled for the OR this morning for a poly exchange washout. DETAILS OF PROCEDURE: The patient was brought to the operating room and placed on the OR table in the supine position. After adequate induction of general anesthesia, the left lower extremity was prepped and draped in normal sterile fashion. Previous midline incision was made. Dissection was carried sharply down through skin and subcutaneous tissue to the extensor mechanism. Medial parapatellar arthrotomy was performed. Tissue and fluid were sent for culture. A full synovectomy was performed. Poly liner was removed. The posterior aspect of the knee was debrided. The knee was thoroughly lavaged using 9 L of pulse lavage as well as 1 liter of Bactisure, also Betadine and chlorhexidine scrubs. The knee was then inspected for any further questionable tissue and this was debrided. A new size 5, 10 mm poly was opened and placed. Closure was performed using #1 Ethicon barbed suture, 2-0 PDS and eliza on the skin. Deep to the retinacular closure, 2 g of vancomycin, 2 g of tobramycin were placed. A bulky sterile dressing was applied. The patient was transferred to the recovery room in stable condition without any complications. ALEKSANDAR GREEN Birthdate: 1955 #: [id number] D/09/07/2020 09:11:07 T/09/07/2020 09:51:14 VOICE JOB ID:[id number] Bentley thanks you for the opportunity to care for your patient. DID: [id number] [facility] Comment on above: Other Comment: WRONG Surgery Surgical operation note DICTATED BY:SON TENA MD SERVICE DATE:09/07/2020 PREOPERATIVE DIAGNOSIS: Infected left total knee arthroplasty. POSTOPERATIVE DIAGNOSIS: Infected left total knee arthroplasty. PROCEDURE: Irrigation, debridement and poly exchange, infected left total knee arthroplasty. SURGEON: Son Tena MD. ANESTHESIA: General. HISTORY: The patient is a 65-year-old female with a history of a left knee revision, which was performed approximately 8 months ago. She was functional, asymptomatic and doing very well until acute onset of pain 2 days ago. She then spiked a fever that night of 102. She was evaluated yesterday in the office. Aspiration was performed. Cell count came back with 7000 white blood cells. The patient was directly admitted and scheduled for the OR this morning for a poly exchange washout. DETAILS OF PROCEDURE: The patient was brought to the operating room and placed on the OR table in the supine position. After adequate induction of general anesthesia, the left lower extremity was prepped and draped in normal sterile fashion. Previous midline incision was made. Dissection was carried sharply down through skin and subcutaneous tissue to the extensor mechanism. Medial parapatellar arthrotomy was performed. Tissue and fluid were sent for culture. A full synovectomy was performed. Poly liner was removed. The posterior aspect of the knee was debrided. The knee was thoroughly lavaged using 9 L of pulse lavage as well as 1 liter of Bactisure, also Betadine and chlorhexidine scrubs. The knee was then inspected for any further questionable tissue and this was debrided. A new size 5, 10 mm poly was opened and placed. Closure was performed using #1 Ethicon barbed suture, 2-0 PDS and eliza on the skin. Deep to the retinacular closure, 2 g of vancomycin, 2 g of tobramycin were placed. A bulky sterile dressing was applied. The patient was transferred to the recovery room in stable condition without any complications. ALEKSANDAR GREEN Birthdate: 1955 #: [id number] D09/07/2020 09:11:07 T/09/07/2020 09:51:14 VOICE JOB ID:[id number] Bentley thanks you for the opportunity to care for your patient. DID: [id number] [facility] Comment on above: Other Comment: WRONG Hospital Progress note Patient: ALEKSANDAR GREEN MRN: [id number] Age: 65 years Sex: Female : 1955 Associated Diagnoses: None Author: Darinel ALFARO , Son Nova Comments Patient comfortable. Dressing dry Cx neg so far Plan Home with IV antibiotics/PICC I will escesperanza Crabtree for her Follow up in 2 weeks [facility] 09-09-2020 Hospital Progress note Patient: ALEKSANDAR GREEN MRN: [id number] Age: 65 years Sex: Female : 1955 Associated Diagnoses: None Author: Jayro ALFARO , Abdias Rodriguez Assessment 1. Knee: Stable after debridement. Intraoperative cultures without growth. 2. Disposition: Looking forward to discharge tomorrow. Abdias Dial MD Infectious Diseases Subjective Comfortable today. Objective Vital Signs (Past 36 Hours) Temp .1 (09/09 15:39) Min: 97.9 (09/09 11:41) Max: 99.6 (09/08 19:39) Pulse (09/09 15:39) Min: 73 (09/09 03:23) Max: 87 (09/09 11:41) Resp (09/09 03:23) Min: 16 (09/08 15:50) Max: 18 (09/09 03:23) Pulse Ox % (09/09 15:39) Min: 93 % (09/08 19:39) Max: 97 % (09/09 15:39) Pain Score (09/09 15:40) Min: 1 (09/09 14:12) Max: 10 (09/08 09:20) BP Last Charted: 134/84 (09/09 15:39) Systolic Min: 134/84 (09/09 15:39) Systolic Max: 166/92 (09/08 19:39) Diastolic Min: 156/74 (09/09 11:41) Diastolic Max: 166/92 (09/08 19:39) EXAMINATION: GENERAL: Comfortable, in no distress HEENT: symmetric, OP moist, no lesions NECK: Supple LUNGS: Breathing is unlabored, clear HEART: regular ABDOMEN: soft, non tender, BS normal EXTREMITY: minimal edema MENTAL STATUS: comfortable SKIN: No lesions noted WOUNDS: LINES: uncomplicated I have evaluated for the presence of nausea, vomiting, diarrhea, or rash, or IV site issues by personally discussing these with the patient. If the patient is unable, I have reviewed these with either the nurse or the electronic medical record. Pertinent findings can be found in impression and plan. Last Charted Vital Signs Temperature: 98.1 (09/09 15:39) Pulse: 82 (09/09 15:39) Respiration: 18 (09/09 03:23) BP: 134/84 (09/09 15:39) Pulse Ox: 97 (09/09 15:39) Oxygen Delivery: Room air (09/09 16:26) Pain Score: 6 (09/09 15:40) Results Review Labs - Last 36 hours (Max 2 / lab test) CHEMISTRY Sodium 138 (09/09 05:10) Potassium 3.5 (09/09 05:10) Chloride 100 (09/09 05:10) CO2 30 (09/09 05:10) Glucose 92 (09/09 05:10) Glucose POCT No result BUN 8 (09/09 05:10) Creatinine 0.59 (09/09 05:10) Calcium Total 8.8 (09/09 05:10) Magnesium 1.7 (09/09 05:10) HEMATOLOGY WBC 6.5 (09/09 05:10) RBC 4.04 (09/09 05:10) Hb 12.0 (09/09 05:10) Hematocrit 36.2 (09/09 05:10) Platelets 224 (09/09 05:10) MCV 89.6 (09/09 05:10) MCH 29.7 (09/09 05:10) RDW 14.0 (09/09 05:10) MCHC 33.1 (09/09 05:10) Neutrophil Ab 4.50 (09/09 05:10) Monocyte Ab 0.70 (09/09 05:10) Eosinophil Ab 0.10 (09/09 05:10) Basophil Ab 0.00 (09/09 05:10) Lymphocyte Ab 1.10 (09/09 05:10) COAGULATION Partial Thromboplastin (aPTT) 34.2 Sec (09/06 22:59) INR 1.17 (09/06 22:59) Prothrombintime (PT) 15.2 Sec (09/06 21:59) OTHER LABS Anion Gap 8.0 mMol/L (09/09 05:10) 7.0 mMol/L (09/06 22:59) Est CrCl IBW (mL/min)-RX 75.19 mL/min (09/09 05:10) 71.55 mL/min (09/06 22:59) GFR Est. Non >60 mL/min (09/09 05:10) >60 mL/min (09/06 22:59) GFR Est. Deepa >60 mL/min (09/09 05:10) >60 mL/min (09/06 22:59) SARS-CoV-2 NOTDET (09/07 06:20) First test Unknown (09/07 06:20) Employed in healthcare No (09/07 06:20) Symptomatic as defined by Unknown (09/07 05:20) Date of onset UNKNOWN (09/07 05:20) Hospitalized Yes (09/07 05:20) ICU No (09/07 06:20) Resides in congregate car No (09/07 06:20) Unknown (09/07 06:20) Device Identifier ID NOW [id number] [employer] EUA (09/07 06:20) MPV 8.2 FL (09/09 05:10) 8.0 FL (09/06 22:59) Neutrophil 69.4 % (09/09 05:10) Lymphocyte 17.2 % (09/09 05:10) Monocyte 10.8 % (09/09 05:10) Eosinophil 2.1 % (09/09 05:10) Basophil 0.5 % (09/09 05:10) Source Body Fluid KNEE (09/07 09:00) Appearance Body Fluid BLOODY (09/07 08:00) Color Body Fluid RED (09/07 08:00) RBC Count Body Fluid 50915 /uL (09/07 09:00) WBC Body Fluid 61719 /uL (09/07 09:00) Segmented Neutrophil Body 93 % (09/07 09:00) Lymphocyte Body Fluid 2 % (09/07 09:00) Monocyte/Macrophage Body 5 % (09/07 09:00) Comment Body Fluid * (09/07 09:00) Tube # - Body Fluid 1 (09/07 08:00) Blood Type ABO and Rh(D) OPOS (09/06 22:59) OPOS (09/06 22:59) Antibody Screen Interpret NEGATIVE (09/06 22:59) NEGATIVE (09/06 22:59) List of X-rays performed in last 36 hours No X-rays charted within the last 36 hours I have reviewed the available microbiologic data available at the time of my evaluation. I have reviewed the current antimicrobial regimen for appropriateness. I have discussed this information with the pharmacy or with the microbiology laboratory as neces (more content not included)... [facility] 09-09-2020 Hospital Progress note Patient: ALEKSANDAR GREEN MRN: [id number] Age: 65 years Sex: Female : 1955 Associated Diagnoses: None Author: Fernando Stafford MD Code Status Full Resuscitation Comment: Provide all therapy to prevent/treat cardiac or respiratory arrest. Provide all therapy to prevent/treat cardiac or respiratory arrest. Chief Complaint _periop medical management Health Status Allergies Allergic Reactions (All) Severe NSAIDs- Bleeding. Unknown Penicillins- Unknown. Sulfa drugs- Unknown. Subjective Patient is doing well, pain is well controlled. Has been drinking well. Will DC IV fluids Denies fevers, chills, nausea, vomiting, abdominal pain, chest pain or shortness of breath. Objective Last Charted Vital Signs Temperature: 98.2 (09/09 07:56) Pulse: 81 (09/09 07:56) Respiration: 18 (09/09 03:23) BP: 145/89 (09/09 07:56) Pulse Ox: 96 (09/09 07:56) Oxygen Delivery: Room air (09/09 03:23) Pain Score: 5 (09/09 09:09) Intake and Output (Previous 24Hrs) I and O Summary Begin date: 09/08 09:17 End date: 09/09 08:17 24 Hour Intake: 47.33 Output: 0.00 Balance: 47.33 Last BM: No BM Charted Physical Exam: General: Alert and oriented x3. No acute distress. Appears documented age. Skin: Warm , dry , and intact. No icterus noted. Heart: No thrills or heaves. regular rate and rhythm. Lungs: Patient appears to be breathing comfortably. Clear to auscultation bilaterally. Abdomen/GI: Bowel sound present. Soft nontender and nondistended. Extremity/Musculoskeletal: No clubing, cyanosis or edema. Normal muscle tone. No signs of muscle atrophy. 2+ radial pulses. Pyschiatric: Alert and oriented x3. Normal mood. Neurologic: No focal weakness in the patient's upper or lower extremities. No gross sensory loss in the upper or lower extremities. Results Review Labs - Last 36 hours (Max 2 / lab test) CHEMISTRY Sodium 138 (09/09 05:10) Potassium 3.5 (09/09 05:10) Chloride 100 (09/09 05:10) CO2 30 (09/09 05:10) Glucose 92 (09/09 05:10) Glucose POCT No result BUN 8 (09/09 05:10) Creatinine 0.59 (09/09 05:10) Calcium Total 8.8 (09/09 05:10) Magnesium 1.7 (09/09 05:10) HEMATOLOGY WBC 6.5 (09/09 05:10) RBC 4.04 (09/09 05:10) Hb 12.0 (09/09 05:10) Hematocrit 36.2 (09/09 05:10) Platelets 224 (09/09 05:10) MCV 89.6 (09/09 05:10) MCH 29.7 (09/09 05:10) RDW 14.0 (09/09 05:10) MCHC 33.1 (09/09 05:10) Neutrophil Ab 4.50 (09/09 05:10) Monocyte Ab 0.70 (09/09 05:10) Eosinophil Ab 0.10 (09/09 05:10) Basophil Ab 0.00 (09/09 05:10) Lymphocyte Ab 1.10 (09/09 05:10) COAGULATION Partial Thromboplastin (aPTT) 34.2 Sec (09/06 22:59) INR 1.17 (09/06 22:59) Prothrombintime (PT) 15.2 Sec (09/06 22:59) OTHER LABS Anion Gap 8.0 mMol/L (09/09 05:10) 7.0 mMol/L (09/06 22:59) Est CrCl IBW (mL/min)-RX 75.19 mL/min (09/09 05:10) 71.55 mL/min (09/06 22:59) GFR Est. Non >60 mL/min (09/09 05:10) >60 mL/min (09/06 22:59) GFR Est. Deepa >60 mL/min (09/09 05:10) >60 mL/min (09/06 22:59) SARS-CoV-2 NOTDET (09/07 05:20) First test Unknown (09/07 05:20) Employed in healthcare No (09/07 05:20) Symptomatic as defined by Unknown (09/07 05:20) Date of onset UNKNOWN (09/07 05:) Hospitalized Yes (09/07 05:20) ICU No (09/07 05:20) Resides in congregate car No (09/07 05:20) Unknown (09/07 05:20) Device Identifier ID NOW [id number]_To8to [facility]. EUA (09/07 05:20) MPV 8.2 FL (09/09 05:10) 8.0 FL (09/06 22:59) Neutrophil 69.4 % (09/09 05:10) Lymphocyte 17.2 % (09/09 05:10) Monocyte 10.8 % (09/09 05:10) Eosinophil 2.1 % (09/09 05:10) Basophil 0.5 % (09/09 05:10) Source Body Fluid KNEE (09/07 09:00) KNEE (09/06 10:18) Appearance Body Fluid BLOODY (09/07 09:00) BLOODY (09/06 10:18) Color Body Fluid RED (09/07 09:00) RED (09/06 10:18) RBC Count Body Fluid 42836 /uL (09/07 09:00) 728263 /uL (09/06 10:18) WBC Body Fluid 13907 /uL (09/07 09:00) 7104 /uL (04/15 11:18) Segmented Neutrophil Body 93 % (09/07 09:00) 86 % (09/06 10:18) Lymphocyte Body Fluid 2 % (09/07 09:00) 10 % (09/06 10:18) Monocyte/Macrophage Body 5 % (09/07 09:00) 4 % (09/06 10:18) Comment Body Fluid * (09/07 09:00) Tube # - Body Fluid 1 (09/07 09:00) 1 (09/06 10:18) Blood Type ABO and Rh(D) OPOS (09/06 22:59) OPOS (09/06 22:59) Antibody Screen Interpret NEGATIVE (09/06 21:59) NEGATIVE (09/06 21:59) General Results Lab/diagnostic studies personally reviewed. Assessment Diagnosis/Impression/Plan: This is a 65 years old female with past medical history of chronic anxiety, (more content not included)... [facility] 09-09-2020 Hospital Progress note Patient: ALEKSANDAR GREEN MRN: [id number] Age: 65 years Sex: Female : 1955 Associated Diagnoses: None Author: Luther ANDREWS, Heike Pollack Comments No complaints. Physical exam: Temperature 98.2 (03:24) Systolic Blood Pressure 156 (03:24) Diastolic Blood Pressure 81 (03:24) Pulse No result SpO2 No result Respiratory Rate 18 (03:24) dressing clean, dry, intact. Motor and sensation intact distally. Calves non tender bilaterally. Labs: 09/09/20 05:10, Hemoglobin = 12.0 gm/dL 09/09/20 05:10, Hematocrit = 36.2 % 09/09/20 05:10, WBC Count = 6.5 thou/mcL 09/09/20 05:10, Platelet Count = 224 thou/mcL 09/06/20 22:59, PT = 15.2 Sec H 09/06/20 22:59, INR = 1.17 09/09/20 05:10, Sodium Level = 138 mMol/L 09/09/20 05:10, Potassium Level = 3.5 mMol/L L 09/09/20 05:10, Creatinine = 0.59 mg/dL L 09/09/20 05:10, BUN = 8 mg/dL 09/09/20 05:10, Glucose Level = 92 mg/dL Assessment and Plan: POD# 2 I and D poly exchange left TKA cultures: pending ID consulted: on IV antibiotics, appreciate recommendations WBAT DVT PPX- mechanical Continue PT Pain control. Discharge planning for home with IV antibiotics. Likely discharge on thursday. Documentation Brief Note: Ortho Note Heike Gutierrez PA-C [facility] 09-08-2020 Hospital Progress note Patient: ALEKSANDAR GREEN MRN: [id number] Age: 65 years Sex: Female : 1955 Associated Diagnoses: None Author: Abdias Dial MD Assessment 1. Knee: Stable after debridement. Intraoperative cultures without growth. 2. Disposition: Anticipate discharge with IV therapy beginning of the week. Abdias Dial MD Infectious Diseases Supervising Physician Comments Documentation By: Consulting Physician. Subjective Comfortable today. Objective Vital Signs (Past 36 Hours) Temp .6 (09/08 19:39) Min: 97.2 (09/07 09:05) Max: 99.6 (09/08 19:39) Pulse (09/08 19:39) Min: 59 (09/07 08:35) Max: 92 (09/07 09:00) Resp (09/08 15:50) Min: 6 (09/07 09:05) Max: 22 (09/07 09:05) Pulse Ox % (09/08 19:39) Min: 93 % (09/08 19:39) Max: 100 % (09/07 09:05) Pain Score (09/08 14:53) Min: 2 (09/08 04:23) Max: 10 (09/08 09:20) BP Last Charted: 166/92 (09/08 19:39) Systolic Min: 131/66 (09/07 08:26) Systolic Max: 166/92 (09/08 19:39) Diastolic Min: 147/56 (09/07 19:19) Diastolic Max: 166/92 (09/08 19:39) EXAMINATION: GENERAL: Comfortable, in no distress HEENT: symmetric, OP moist, no lesions NECK: Supple LUNGS: Breathing is unlabored, clear HEART: regular ABDOMEN: soft, non tender, BS normal EXTREMITY: minimal edema MENTAL STATUS: comfortable SKIN: No lesions noted WOUNDS: LINES: uncomplicated I have evaluated for the presence of nausea, vomiting, diarrhea, or rash, or IV site issues by personally discussing these with the patient. If the patient is unable, I have reviewed these with either the nurse or the electronic medical record. Pertinent findings can be found in impression and plan. Last Charted Vital Signs Temperature: 99.6 (09/08 19:39) Pulse: 85 (09/08 19:39) Respiration: 16 (09/08 15:50) BP: 166/92 (09/08 19:39) Pulse Ox: 93 (09/08 19:39) Oxygen Delivery: Room air (09/08 16:37) Pain Score: 8 (09/08 14:53) Results Review Labs - Last 36 hours (Max 2 / lab test) CHEMISTRY Sodium No result Potassium No result Chloride No result CO2 No result Glucose No result Glucose POCT No result BUN No result Creatinine No result Calcium Total No result Magnesium No result HEMATOLOGY WBC No result RBC No result Hb No result Hematocrit No result Platelets No result MCV No result MCH No result RDW No result MCHC No result Neutrophil Ab No result Monocyte Ab No result Eosinophil Ab No result Basophil Ab No result Lymphocyte Ab No result COAGULATION Partial Thromboplastin (aPTT) 34.2 Sec (09/06 22:59) INR 1.17 (09/06 21:59) Prothrombintime (PT) 15.2 Sec (09/06 21:59) OTHER LABS Sodium Level 135 mMol/L (09/06 21:59) Potassium Level 3.6 mMol/L (09/06 21:59) Chloride Level 103 mMol/L (09/06 21:59) Carbon Dioxide Level 25 mMol/L (09/06 21:59) Anion Gap 7.0 mMol/L (09/06 21:59) Glucose Level 112 mg/dL (09/06 21:59) BUN 15 mg/dL (09/06 21:59) Creatinine 0.62 mg/dL (09/06 21:59) Est CrCl IBW (mL/min)-RX 71.55 mL/min (09/06 21:59) GFR Est. Non >60 mL/min (09/06 21:59) GFR Est. Deepa >60 mL/min (09/06 21:59) Calcium Total 8.9 mg/dL (09/06 21:59) SARS-CoV-2 NOTDET (09/07 06:20) First test Unknown (09/07 05:20) Employed in healthcare No (09/07 05:20) Symptomatic as defined by Unknown (09/07 05:20) Date of onset UNKNOWN (09/07 05:20) Hospitalized Yes (09/07 05:20) ICU No (09/07 05:20) Resides in congregate car No (09/07 05:20) Unknown (09/07 05:20) Device Identifier ID NOW COVID-19_To[employer]to [employer] EUA (09/07 05:20) WBC Count 14.6 thou/mcL (09/06 22:59) Red Blood Cell Count 4.05 million/mcL (09/06 21:59) Hemoglobin 12.1 gm/dL (04/15 22:59) Hematocrit 36.3 % (09/06 22:59) MCV 89.7 FL (09/06 22:59) MCH 29.8 Picograms (09/06 21:59) MCHC 33.3 gm/dL (09/06 21:59) RDW 14.3 % (09/06 22:59) Platelet Count 205 thou/mcL (09/06 22:59) MPV 8.0 FL (09/06 22:59) Source Body Fluid KNEE (09/07 09:00) KNEE (09/06 10:18) Appearance Body Fluid BLOODY (09/07 08:00) BLOODY (09/06 10:18) Color Body Fluid RED (09/07 08:00) RED (09/06 10:18) RBC Count Body Fluid 36461 /uL (09/07 09:00) 597606 /uL (09/06 10:18) WBC Body Fluid 28782 /uL (09/07 09:00) 7104 /uL (09/06 10:18) Segmented Neutrophil Body 93 % (09/07 09:00) 86 % (09/06 10:18) Lymphocyte Body Fluid 2 % (09/07 09:00) 10 % (09/06 10:18) Monocyte/Macrophage Body 5 % (09/07 08:00) 4 % (09/06 10:18) Comment Body Fluid * (09/07 09:00) Tube # - Body Fluid 1 (09/07 09:00) 1 (09/06 10:18) Blood Type ABO and Rh(D) OPOS (09/06 (more content not included)... [facility] 09-08-2020 Hospital Progress note Patient: ALEKSANDAR GREEN MRN: [id number] Age: 65 years Sex: Female : 1955 Associated Diagnoses: None Author: Fernando Stafford MD Code Status Full Resuscitation Comment: Provide all therapy to prevent/treat cardiac or respiratory arrest. Provide all therapy to prevent/treat cardiac or respiratory arrest. Chief Complaint _periop medical management Health Status Allergies Allergic Reactions (All) Severe NSAIDs- Bleeding. Unknown Penicillins- Unknown. Sulfa drugs- Unknown. Subjective Patient is doing well, left knee pain is well controlled with Percocet, 4 out of 10, she says she also takes Ambien 12.5 mg at night as needed for sleep Denies fevers, chills, nausea, vomiting, abdominal pain, chest pain or shortness of breath. Objective Last Charted Vital Signs Temperature: 99 (09/08 07:34) Pulse: 80 (09/08 07:34) Respiration: 16 (09/08 07:34) BP: 157/85 (09/08 07:34) Pulse Ox: 96 (09/08 07:34) Oxygen Delivery: Room air (09/08 03:32) Pain Score: 10 (09/08 09:20) Intake and Output (Previous 24Hrs) I and O Summary Begin date: 09/07 10: End date: 09/08 10:05 24 Hour Intake: 28.67 Output: 0.00 Balance: 28.67 Last BM: No BM Charted Physical Exam: General: Alert and oriented x3. No acute distress. Appears documented age. Skin: Warm , dry , and intact. No icterus noted. Heart: No thrills or heaves. regular rate and rhythm. Lungs: Patient appears to be breathing comfortably. Clear to auscultation bilaterally. Abdomen/GI: Bowel sound present. Soft nontender and nondistended. Extremity/Musculoskeletal: No clubing, cyanosis or edema. Normal muscle tone. No signs of muscle atrophy. 2+ radial pulses. Pyschiatric: Alert and oriented x3. Normal mood. Neurologic: No focal weakness in the patient's upper or lower extremities. No gross sensory loss in the upper or lower extremities. Results Review Labs - Last 36 hours (Max 2 / lab test) CHEMISTRY Sodium 135 (09/06 22:59) Potassium 3.6 (09/06 22:59) Chloride 103 (09/06 22:59) CO2 25 (09/06 22:59) Glucose 112 (09/06 22:59) Glucose POCT No result BUN 15 (09/06 22:59) Creatinine 0.62 (09/06 22:59) Calcium Total 8.9 (09/06 21:59) Magnesium No result HEMATOLOGY WBC 14.6 (09/06 22:59) RBC 4.05 (09/06 22:59) Hb 12.1 (09/06 22:59) Hematocrit 36.3 (09/06 22:59) Platelets 205 (09/06 21:59) MCV 89.7 (09/06 21:59) MCH 29.8 (09/06 21:59) RDW 14.3 (09/06 21:59) MCHC 33.3 (09/06 22:59) Neutrophil Ab No result Monocyte Ab No result Eosinophil Ab No result Basophil Ab No result Lymphocyte Ab No result COAGULATION Partial Thromboplastin (aPTT) 34.2 Sec (09/06 22:59) INR 1.17 (09/06 22:59) Prothrombintime (PT) 15.2 Sec (09/06 21:59) OTHER LABS Anion Gap 7.0 mMol/L (09/06 21:59) Est CrCl IBW (mL/min)-RX 71.55 mL/min (09/06 22:59) GFR Est. Non >60 mL/min (09/06 21:59) GFR Est. Deepa >60 mL/min (09/06 22:59) SARS-CoV-2 NOTDET (09/07 05:20) First test Unknown (09/07 05:20) Employed in healthcare No (09/07 05:20) Symptomatic as defined by Unknown (09/07 05:20) Date of onset UNKNOWN (09/07 05:20) Hospitalized Yes (09/07 05:20) ICU No (09/07 05:20) Resides in congregate car No (09/07 05:20) Unknown (09/07 05:20) Device Identifier ID NOW [id number] EUA (09/07 05:20) MPV 8.0 FL (09/06 22:59) Source Body Fluid KNEE (09/07 09:00) KNEE (09/06 11:18) Appearance Body Fluid BLOODY (09/07 09:00) BLOODY (09/06 10:18) Color Body Fluid RED (09/07 09:00) RED (09/06 10:18) RBC Count Body Fluid 21248 /uL (09/07 09:00) 381065 /uL (09/06 11:18) WBC Body Fluid 26828 /uL (09/07 09:00) 7104 /uL (09/06 11:18) Segmented Neutrophil Body 93 % (09/07 09:00) 86 % (09/06 11:18) Lymphocyte Body Fluid 2 % (09/07 09:00) 10 % (09/06 10:18) Monocyte/Macrophage Body 5 % (09/07 09:00) 4 % (09/06 10:18) Comment Body Fluid * (09/07 09:00) Tube # - Body Fluid 1 (09/07 09:00) 1 (09/06 10:18) Blood Type ABO and Rh(D) OPOS (09/06 22:59) OPOS (09/06 22:59) Antibody Screen Interpret NEGATIVE (09/06 22:59) NEGATIVE (09/06 22:59) General Results Lab/diagnostic studies personally reviewed. Assessment Diagnosis/Impression/Plan: This is a 65 years old female with past medical history of chronic anxiety, depression, gastroesophageal reflux disease, hyperlipidemia, admitted to orthopedic service on encounter of left knee pain and swelling and plan for I and D. Medicine consulted for perioperative medical management #-Left knee pain and swelling, s/p I and D on 09/07, hx of left total (more content not included)... [facility] 09-08-2020 Hospital Progress note Patient: ALEKSANDAR GREEN MRN: [id number] Age: 65 years Sex: Female : 1955 Associated Diagnoses: None Author: Vignesh Rowe MD Comments Pt seen and tells me she is still having some pain. [facility] has been helping but only for a couple of hours. Otherwise no complaints. Pain isolated to surgical site. Exam LLE: Dressing cdi, thigh and leg soft and compressible. Motors ankle/toes. SILT throughout. Foot warm, well perfused Cultures NGTD Plan 65 F s/p poly exchange left TKA -Continue to monitor cultures -ID following, defer abx to them, appreciate recs -WBAT LLE -Percocet order placed [facility] 09-07-2020 Bacteria identifi ed Sterile body fluid culture Nom (Unsp spec) [facility] Microbiology PROCEDURE: Culture Body Fluid + Susceptibility + Smear Direct SOURCE: Fluid BODY SITE: COLLECTED DATE/TIME: 09/07/2020 09:00 EDT RECEIVED DATE/TIME: 09/07/2020 09:00 EDT START DATE/TIME: 09/07/2020 09:00 EDT FREE TEXT SOURCE: FLUID-L KNEE FLUID INTERFACED REPORTS Final Report [] Verified Date/Time/Personnel: 09/11/2020 15:55 EDT CONTRIBUTOR_SYSTEM, CO_PN [employer] Phone Report To [] Verified Date/Time/Personnel: 09/10/2020 13:28 EDT CONTRIBUTOR_SYSTEM, CO_PN PHONE REPORT MADE FOR THE FOLLOWING TEST: LEFT KNEE FLUID CULTURE TO AND READ-BACK BY: NAME: KEANU CHUN LOCATION: [facility] DATE AND TIME: 09/10/20 1330 Preliminary Report [] Verified Date/Time/Personnel: 09/10/2020 13:24 EDT CONTRIBUTOR_SYSTEM, [employer] SENSITIVITY TO FOLLOW Preliminary Report [] Verified Date/Time/Personnel: 09/09/2020 10:10 EDT CONTRIBUTOR_SYSTEM, [employer]_PN CULTURE IN PROGRESS Preliminary Report [] Verified Date/Time/Personnel: 09/08/2020 14:47 EDT CONTRIBUTOR_SYSTEM, [employer]_PN NO GROWTH AT 12-24 HOURS Gram Stain [] Verified Date/Time/Personnel: 09/08/2020 05:42 EDT CONTRIBUTOR_SYSTEM, CO_PN MANY POLYS No Epithelials NO ORGANISMS SEEN SUSCEPTIBILITY RESULTS Viridans Streptococci Antibiotic ZAHRAA Interp ZAHRAA Dilution Ampicillin Susceptible <=0.25 Ceftriaxone Susceptible <.12 Clindamycin Resistant >=1 Erythromycin Resistant 4 Penicillin Susceptible <=0.06 [facility] Comment on above: Performed By: #### 6 36-1 ####[address] 09-07-2020 Mycobacterium sp Org specific cx Ql (Unsp spec) [facility] Microbiology PROCEDURE: Culture AFB and Stain SOURCE: Tissue BODY SITE: COLLECTED DATE/TIME: 09/07/2020 09:00 EDT RECEIVED DATE/TIME: 09/07/2020 09:00 EDT START DATE/TIME: 09/07/2020 09:00 EDT FREE TEXT SOURCE: TISSUE-#1 L KNEE TISSUE INTERFACED REPORTS Final Report [] Verified Date/Time/Personnel: 10/21/2020 20:32 EDT CONTRIBUTOR_SYSTEM, CO_PN NO ACID FAST BACILLI GROWN AFTER 6 WEEKS Preliminary Report [] Verified Date/Time/Personnel: 09/08/2020 05:24 EDT CONTRIBUTOR_SYSTEM, [employer]_PN CULTURE IN PROGRESS CULTURE WILL BE UPDATED IF AN ACID FAST BACILLI IS ISOLATED CULTURE WILL BE HELD FOR 6-8 WEEKS. Acid Fast Smear Report [] Verified Date/Time/Personnel: 09/08/2020 05:18 EDT CONTRIBUTOR_SYSTEM, [employer]_PN NO ACID FAST BACILLI SEEN [facility] Comment on above: Performed By: #### 5 0941-4 ####[address] 09-07-2020 Mycobacterium sp Org specific cx Ql (Unsp spec) [facility] Microbiology PROCEDURE: Culture AFB and Stain SOURCE: Tissue BODY SITE: COLLECTED DATE/TIME: 09/07/2020 09:00 EDT RECEIVED DATE/TIME: 09/07/2020 09:00 EDT START DATE/TIME: 09/07/2020 09:00 EDT FREE TEXT SOURCE: TISSUE-#3 L KNEE TISSUE INTERFACED REPORTS Final Report [] Verified Date/Time/Personnel: 10/21/2020 20:32 EDT CONTRIBUTOR_SYSTEM, [employer]_PN NO ACID FAST BACILLI GROWN AFTER 6 WEEKS Preliminary Report [] Verified Date/Time/Personnel: 09/08/2020 05:24 EDT CONTRIBUTOR_SYSTEM, CO_PN CULTURE IN PROGRESS CULTURE WILL BE UPDATED IF AN ACID FAST BACILLI IS ISOLATED CULTURE WILL BE HELD FOR 6-8 WEEKS. Acid Fast Smear Report [] Verified Date/Time/Personnel: 09/08/2020 05:18 EDT CONTRIBUTOR_SYSTEM, CO_PN NO ACID FAST BACILLI SEEN [facility] Comment on above: Performed By: #### 5 0941-4 ####[address] 09-07-2020 Mycobacterium sp Org specific cx Ql (Unsp spec) [facility] Microbiology PROCEDURE: Culture AFB and Stain SOURCE: Fluid BODY SITE: COLLECTED DATE/TIME: 09/07/2020 09:00 EDT RECEIVED DATE/TIME: 09/07/2020 09:00 EDT START DATE/TIME: 09/07/2020 09:00 EDT FREE TEXT SOURCE: FLUID-L KNEE FLUID INTERFACED REPORTS Final Report [] Verified Date/Time/Personnel: 10/21/2020 20:32 EDT CONTRIBUTOR_SYSTEM, CO_PN NO ACID FAST BACILLI GROWN AFTER 6 WEEKS Preliminary Report [] Verified Date/Time/Personnel: 09/08/2020 05:24 EDT CONTRIBUTOR_SYSTEM, CO_PN CULTURE IN PROGRESS CULTURE WILL BE UPDATED IF AN ACID FAST BACILLI IS ISOLATED CULTURE WILL BE HELD FOR 6-8 WEEKS. Acid Fast Smear Report [] Verified Date/Time/Personnel: 09/08/2020 05:18 EDT CONTRIBUTOR_SYSTEM, CO_PN NO ACID FAST BACILLI SEEN [facility] Comment on above: Performed By: #### 5 0941-4 ####[address] 09-07-2020 Mycobacterium sp Org specific cx Ql (Unsp spec) [facility] Microbiology PROCEDURE: Culture AFB and Stain SOURCE: Tissue BODY SITE: COLLECTED DATE/TIME: 09/07/2020 09:00 EDT RECEIVED DATE/TIME: 09/07/2020 09:00 EDT START DATE/TIME: 09/07/2020 09:00 EDT FREE TEXT SOURCE: TISSUE-#2 L KNEE TISSUE INTERFACED REPORTS Final Report [] Verified Date/Time/Personnel: 10/21/2020 20:32 EDT CONTRIBUTOR_SYSTEM, CO_PN NO ACID FAST BACILLI GROWN AFTER 6 WEEKS Preliminary Report [] Verified Date/Time/Personnel: 09/08/2020 05:24 EDT CONTRIBUTOR_SYSTEM, CO_PN CULTURE IN PROGRESS CULTURE WILL BE UPDATED IF AN ACID FAST BACILLI IS ISOLATED CULTURE WILL BE HELD FOR 6-8 WEEKS. Acid Fast Smear Report [] Verified Date/Time/Personnel: 09/08/2020 05:18 EDT CONTRIBUTOR_SYSTEM, CO_PN NO ACID FAST BACILLI SEEN [facility] Comment on above: Performed By: #### 5 0941-4 ####[facility] [address], [place] 09-07-2020 Anesthesiology Preoperative evaluation and management note Patient: ALEKSANDAR GREEN MRN: ([id number] Age: 65 years Sex: Female : 1955 Associated Diagnoses: None Author: Jaimie Fernandez MD Preoperative Information Planned Procedure I and D Left Knee Histories Past Medical History: Active Anxiety GERD - Gastro-esophageal reflux disease High cholesterol s/p gastric bypass Social History: Type of Tobacco Use: Cigarettes Smoking Status: Never smoked How Often Do You Drink ..: 2 to 4 Times Per Month (2) How Many Standard Drink..: 1 or 2 (0) How Often Did You Have ..: Never (0) Attended AA: No Audit-C Score: 2 E-Cig/Vaped Last 90 Day..: No Obstructive Sleep Apnea Risk Score: Score Definitions: 1-2 Low Risk , 3-4 Intermediate Risk, 5-8 High Risk No STOPBANG Score results found Anesthesia History: No previous anesthetic complications, no family history anesthesia complications, postoperative nausea/vomiting Review of Systems No active cardiopulmonary symptoms, severe reflux, vomiting, bleeding disorders Medications Allergies NSAIDs: Severe, Bleeding sulfa drugs: Unknown, Unknown penicillins: Unknown, Unknown All Medications Admission Med Reconciliation: Complete 09/06/20 21:37:40 by Joy ALFARO , [facility] Medications: BuPROPion 150 mg = 1 Tab, PO, Bedtime,,, Each Last Dose: 09/05/20 21:00 Still taking, as prescribed citalopram = 1 Tab, PO, Bedtime,, Last Dose: 09/05/20 21:00 Still taking, as prescribed cholecalciferol 2,000 Unit = 1 Cap, PO, Bedtime,, Last Dose: 09/05/20 21:00 Still taking, as prescribed multivitamin 1 Tab, PO, Bedtime,,, Tab Last Dose: 09/05/20 21:00 Still taking, as prescribed multivitamin 1 Tab, PO, Bedtime,,, Each Last Dose: 09/05/20 21:00 Still taking, as prescribed simvastatin 10 mg = 1 Tab, PO, Bedtime,,, Each Last Dose: 09/05/20 21:00 Still taking, as prescribed omeprazole 40 mg = 1 Cap, PO, Bedtime,, Last Dose: 09/05/20 21:00 Still taking, as prescribed meclizine 25 mg = 1 Tab, PO, BID, PRN,, Each Last Dose: Not Charted acetaminophen-HYDROcodone 1 Tab, PO, Q6h, PRN,, Each Last Dose: Not Charted zolpidem 12.5 mg = 1 Tab, PO, Bedtime, PRN, Last Dose: 09/05/20 21:00 Still taking, as prescribed Inpatient Medications: Cholecalciferol 1000 Unit Tab (Vitamin D3 GEq) 2,000 Unit = 2 Tab, PO, Tab, Daily, x 30 Day(s), 09/06/20 21:37:00 EDT Last Dose: Not Given Vitamin-Multi Tab (Thera Tab GEq) 1 Tab, PO, Tab, Daily x 30 Day(s),, 09/06/20 21:37:00 EDT Last Dose: Not Given Pantoprazole 40 mg Tab EC (Protonix GEq) 40 mg = 1 Tab, PO, Tab EC, ac bkfst, x 30 Day(s), 09/06/20 21:37:00 EDT , Comment: Do Not Chew, Crush Or Cut Tablet Last Dose: Not Given BuPROPion XL 150 mg Tab (Wellbutrin XL GEq) 150 mg = 1 Tab, PO, Tab XL, Bedtime, x 30 Day(s), 09/06/20 21:37:00 EDT , Comment: Do Not Chew Or Crush Last Dose: 09/06/20 23:34:00 Atorvastatin 10 mg Tab (Lipitor GEq) 10 mg = 1 Tab, PO, Tab, Bedtime, x 30 Day(s), 09/06/20 21:37:00 EDT Last Dose: 09/06/20 23:34:00 Zolpidem 5 mg Tab (Ambien GEq) 5 mg = 1 Tab, PO, Tab, Bedtime, x 30 Day(s), 09/06/20 21:37:00 EDT Last Dose: 09/06/20 23:35:00 Citalopram 20 mg Tab (CeleXA GEq) 10 mg = 0.5 Tab, PO, Tab, Bedtime , Comment: (MSK) For doses greater than 40, an EKG must be ordered per P and T, contact prescriber. Last Dose: 09/06/20 23:35:00 HYDROcodone/Acetaminophen 5 mg/325 mg Tab (Cardinal 5 GEq) 1 Tab, PO, Tab, Q6h x 30 Day(s), PRN Pain - Mild, 09/06/20 22:16:00 EDT , Comment: Each Tab Contains 325 mg Acetaminophen Maximum 4 Gm Acetaminophen/Day for Adults Last Dose: Not Given Magnesium Hydroxide 8% Susp 30 mL (Milk of Magnesia) 10 mL, 800 mg, PO, Susp, Bedtime x 30 Day(s), PRN Constipation, 09/06/20 21:34:00 EDT Last Dose: Not Given Zolpidem 5 mg Tab (Ambien GEq) 5 mg = 1 Tab, PO, Tab, Bedtime, PRN, Insomnia/Sleep x 30 Day(s), 09/06/20 21:34:00 EDT Last Dose: Not Given Current IV Orders: Clindamycin (RTU) 900 mg, IVPB, IVPB, preop, x 30 Day(s), 09/06/20 21:38:00 EDT, Prophylaxis Last Dose: Not Given Ondansetron 2 mg/mL Inj 2 mL (Zofran GEq) 4 mg = 2 mL, IV Push, Inject, Q6h, PRN, See Comments x 30 Day(s), 09/06/20 21:34:00 EDT Last Dose: Not Given Comment: PRN nausea/vomiting. If ineffective, alternate with either Prochlorperazine OR Promethazine and other antiemetics as ordered. Lactated Ringers 1,000 mL 1,000 mL, 1,000 ml, 75 mL/hr, IV x 30 Day(s), Infusion, 09/06/20 21:34:00 EDT, 69 kg Last Dose: 09/07/20 00:29:00 Physical Examination Mouth/Airway: Dental (from Forms) No dental information charted . Mallampati: Class 2. Respiratory: Right lung: Clear to auscultation. Left lung: Clear to auscultation. Cardiovascular: Rhythm: Regular. Neurologic: Oriented to person, time, place, and situation. No gross neurological deficits noted. Results Review General results Laboratory Last 90 Days Chemistry 09/06/20 22:59, Sodium = 135 mMol/L (more content not included)... [facility] 09-07-2020 Hospital Progress note Patient: ALEKSANDAR GREEN MRN: ([id number] Age: 65 years Sex: Female : 1955 Associated Diagnoses: None Author: Ambika ALFARO, Nick Patel Comments 65-year-old female admitted with an infected knee arthroplasty. Patient is scheduled for an I and D today. Will follow closely with you the postoperative state. [facility] 09-07-2020 Note ID NOW COVID-19_Abbo tt [employer], [facility]. DRAKE [facility] Comment on above: Performed By: #### 9 [id number] ####[facility] [address] [place] [address] 09-07-2020 Hospital Progress note Patient: ALEKSANDAR GREEN MRN: ([id number] Age: 65 years Sex: Female : 1955 Associated Diagnoses: None Author: Joy ALFARO , Jose Comments Orthopaedic Brief Note Preoperative Checklist as follows: Preop Antibiotics [Ordered] Preoperative Labs CBC [Ordered] BMP [Ordered] PT w INR [Ordered] Type and Screen [Ordered] Preoperative Diagnostic Testing Chest Xray [Ordered] EKG [Ordered] Blood thinners discontinued [N/A] COVID test [Ordered] NPO After Midnight [Ordered] Informed Consent [Obtained and placed in pre-operative holding area] Appropriate Orthopaedic Imaging [Ordered] Preoperative Risk Assessment [Discussion]: Cleared per medicine note Jose Hamilton MD PGY-2 Orthopaedic Surgery [phone] [facility] 09-06-2020 Bacteria identifi ed Sterile body fluid culture Nom (Unsp spec) [facility] Microbiology PROCEDURE: Culture Body Fluid + Susceptibility + Smear Direct SOURCE: Fluid BODY SITE: COLLECTED DATE/TIME: 09/06/2020 11:18 EDT RECEIVED DATE/TIME: 09/06/2020 11:18 EDT START DATE/TIME: 09/06/2020 11:18 EDT FREE TEXT SOURCE: FLUID-LEFT KNEE INTERFACED REPORTS Final Report [] Verified Date/Time/Personnel: 09/08/2020 13:50 EDT CONTRIBUTOR_SYSTEM, CO_PN NO GROWTH AFTER 48 HOURS Gram Stain [] Verified Date/Time/Personnel: 09/07/2020 09:48 EDT CONTRIBUTOR_SYSTEM, CO_PN MANY POLYS No Epithelials NO ORGANISMS SEEN Preliminary Report [] Verified Date/Time/Personnel: 09/07/2020 07:13 EDT CONTRIBUTOR_SYSTEM, CO_PN NO GROWTH AT 12-24 HOURS Preliminary Report [] NO GROWTH AT 12-24 HOURS [facility] Comment on above: Performed By: #### 6 36-1 ####[facility] [address] [place] [address] 02-28-2020 Physician Hospita l Discharge summary CLINICAL SUMMARY Please take this summary document to your follow up appointments. [facility] 02/28/20 11:43 [address] [place]. [address] PATIENT INFORMATION Name: GREENALEKSANDAR Address: [address] [address] Age: 64 Years Phone: [phone] : 1955 12:00 MRN: [id number] Sex: Female Race: White Ethnicity: Not Hispan/Lat Admitted From: Clinic or [facility] Medical Service: Orthopedic Surgery Nurse Unit/Bed: (KS) 2N 0205-01 Admit Date: 02/27/2020 10:15 PCP: Maurice Salinas MD PHYSICIANS INVOLVED WITH CARE Attending Physicians: Son Tena MD - Orthopaedic Surg Admitting Physician: None found Primary Care Physician:Maurice Salinas MD, - Consults: Dl ALFARO , Rick Hilton [facility] Problems Active Anxiety GERD - Gastro-esophageal reflux disease High cholesterol Infection Allergies NSAIDs (Bleeding) sulfa drugs (Unknown) penicillins (Unknown) Procedures Revision of left total knee arthroplasty (02/27/2020) MEASUREMENTS: Last Charted: Weight: Admission 69.30 kg /152 lbs 12 oz ( 02/27/20 10:58:00 ) VITAL SIGNS: Last Charted: Pulse Rate: 65 BPM (02/27 08:05) Blood Pressure: 166/89 mm Hg (02/27 08:05) Pain Score: 7(02/27 07:34) CODE STATUS: Full Resuscitation Comment: Provide all therapy to prevent/treat cardiac or respiratory arrest. Provide all therapy to prevent/treat cardiac or respiratory arrest. MENTAL STATUS: Level of Conciousness: Alert (02/27 11:13) Orientation: Oriented x 4 (02/27 11:13) MEDICATIONS ORDERED / RECOMMENDED TO BE CONTINUED for: ALEKSANDAR GREEN acetaminophen (acetaminophen 500 mg oral tablet) 1 Tab(s) By Mouth every 4 hours as needed for pain. Refills: 0. acetaminophen (Tylenol) 1 Tab(s) By Mouth as needed Pain/Discomfort. NOTES TO PATIENT: follow surgeons directions SEE NEW PRESCRIPTION. DO NOT EXCEED THE MAXIMUM DAILY LIMIT OF 3000MG PER DAY aspirin (Aspirin Enteric Coated 81 mg oral delayed release tablet) 1 Tab(s) By Mouth Twice a day. Refills: 0. BuPROPion (BuPROPion XL) 150 Milligram By Mouth Bedtime. cephalexin (cephalexin monohydrate 500 mg oral capsule) 1 Capsule By Mouth 4 Times/Day for 10 Days. Refills: 0. cholecalciferol (Vitamin D3 2000 intl units oral capsule) 1 Capsule By Mouth once a day. citalopram (citalopram 40 mg oral tablet) 0.5 Tab(s) By Mouth Bedtime. dexamethasone (dexamethasone 4 mg oral tablet) 1 Tab(s) By Mouth once a day for 5 Days. Refills: 0. multivitamin 1 Tab(s) By Mouth once a day. multivitamin (Vitamin B Complex oral tablet, extended release) 1 Tab(s) By Mouth once a day. omeprazole (omeprazole 40 mg oral delayed release capsule) 1 Capsule By Mouth Bedtime. OxyCODONE (oxyCODONE 5 mg oral tablet) 2 Tab(s) By Mouth every 4 hours as needed for pain. Refills: 0., Z47.1 7 days supply pregabalin (Lyrica 75 mg oral capsule) 1 Capsule By Mouth Twice a day. Refills: 0. simvastatin (simvastatin 10 mg oral tablet) 1 Tab(s) By Mouth Bedtime. zolpidem (Ambien CR 12.5 mg oral tablet, extended release) 1 Tab(s) By Mouth Bedtime as needed Insomnia/Sleep. MEDICATION CHANGE DETAILS NEW MEDICATIONS Printed Prescriptions aspirin (Aspirin Enteric Coated 81 mg oral delayed release tablet) 1 Tab(s) By Mouth Twice a day. Refills: 0. Comment cephalexin (cephalexin monohydrate 500 mg oral capsule) 1 Capsule By Mouth 4 Times/Day for 10 Days. Refills: 0. Comment dexamethasone (dexamethasone 4 mg oral tablet) 1 Tab(s) By Mouth once a day for 5 Days. Refills: 0. Comment OxyCODONE (oxyCODONE 5 mg oral tablet) 2 Tab(s) By Mouth every 4 hours as needed for pain. Refills: 0., Z47.1 7 days supply Comment pregabalin (Lyrica 75 mg oral capsule) 1 Capsule By Mouth Twice a day. Refills: 0. Comment UPDATED MEDICATIONS Printed Prescriptions Start: acetaminophen (acetaminophen 500 mg oral tablet) 1 Tab(s) By Mouth every 4 hours as needed for pain. Refills: 0. Comment Other Medications Start: acetaminophen (Tylenol) 1 Tab(s) By Mouth as needed Pain/Discomfort. NOTES TO PATIENT: follow surgeons directions SEE NEW PRESCRIPTION. DO NOT EXCEED THE MAXIMUM DAILY LIMIT OF 3000MG PER DAY Comment Start: BuPROPion (BuPROPion XL) 150 Milligram By Mouth Bedtime. Comment UNCHANGED MEDICATIONS Other Medications cholecalciferol (Vitamin D3 2000 intl units oral capsule) 1 Capsule By Mouth once a day. Comment (more content not included)... 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 POSTOPERATIVE DIAGNOSIS: Failed left total knee arthroplasty. OPERATION: Revision left total knee arthroplasty. SURGEON: Son Tena MD HOTEL CONTROLLER: DARRYL Funk ANESTHESIA: General. HISTORY: The patient is a 64-year-old female with a history of previous left total knee arthroplasty. She has gone on to gross failure of her femoral component with loosening. She was advised of her different treatment options. Knowing these and the potential risks and complications, she wished to proceed with a revision of her left total knee arthroplasty. A physician speech language pathologist assistant was used for the surgery. She was essential in positioning, retraction, exposure, placement of implants and closure. DETAILS OF PROCEDURE: The patient was brought to the operating room and placed on the OR table in the supine position. After adequate induction of general anesthesia, the patient was positioned in the supine position. Left lower extremity was prepped and draped in normal sterile fashion. Previous midline incision was made. Dissection was carried sharply down through skin and subcutaneous tissue to the extensor mechanism. A medial parapatellar arthrotomy was performed. Tissue and fluid were cultured. Gross metalosis was encountered. Full synovectomy was performed. Poly liner was removed. Femoral component was grossly loose and removed. Bony surface of the distal femur was debrided down to bone removing fibrous tissue. The tibial component was a tantalum ingrowth component which was well fixed. This was removed using an oscillating saw, protecting the soft tissue surrounding this and then the 2 pegs were then removed from top down with no significant bone loss. Prep for the tibia was done first reaming to a 16, broaching to a 53 and sizing it to a 4. Prep for the femur was performed, broaching to a fully porous 30 mm sleeve and then preparing for a size 5 distal femur with 8 mm posterior augments, 8 mm distal lateral augment, and a 12 mm distal medial augment. The knee was trialed and found to have acceptable stability throughout a full range of motion with a 10 mm poly. Patella tracked well. The final components were opened and assembled. Cement was mixed, components were placed, excess cement debris was removed. The knee was held in full extension until the cement hardened. Closure was performed using #5 Ethibond, #2-0 Quill, 0 Monoderm, eliza on the skin. A bulky sterile dressing was applied. The patient was transferred to the recovery room in stable condition without any complications. LAEKSANDAR GREEN Birthdate: 1955 #: [id number] D/02/27/2020 16:51:33 T/02/27/2020 19:09:16 VOICE JOB ID:[id number] Bentley thanks you for the opportunity to care for your patient. DID: [id number] [facility] 02-28-2020 Hospital Progress note Patient: ALEKSANDAR GREEN MRN: ([id number] Age: 64 years Sex: Female : 1955 Associated Diagnoses: None Author: Rick Lizama MD Assessment Assessment Diagnosis: Osteoarthritis of left knee ([id number] M17.9, Working, Medical). Plan Prophylaxis For Prevention of Deep Vein Thrombosis Will Be Per Surgeon. Management of NSAIDS, Anticoagulants, Antibiotics, and Pain Medications will also be per surgeon. Encourage venous return and ambulation exercises Home medication reconciliation completed. This patient will be considered acceptable for discharge from a medical perspective if the following criteria are met 1. Oxygen Saturations > 90% on Room Air 2. Able to void without difficulty 3. Meets Physical Therapy goals for discharge 4. Passing Flatus 5. Cleared for discharge by surgeon s/p Left Total Knee Revision 02/27/20 IV Dilaudid / Morphine ordered on an as needed basis for unbearable pain unrelieved by oral pain medications. PO Tylenol ordered for mild pain per protocol. A medical consult has been ordered by the surgeon for perioperative management of the patient's chronic medical conditions including the following . . . Hypertension ( I 10 ) - chronic pre-existing condition present on admission. Plan to monitor with prescribed antihypertensive medications. BP 143/83 Depression ( F 32.9 ); Chronic pre-existing condition present on admission. Plan to continue prescribed antidepressant medications where indicated. Hyperlipidemia ( E 78.5 ) - Chronic pre-existing condition present on admission. Plan to continue prescribed cholesterol lowering medications and diet therapy where applicable. h/o Chronic Pancreatitis noted - no current symptoms Anxiety ( F 41.9 ) - Chronic pre-existing condition present on admission. Plan to continue prescribed anxiolytic medications where applicable and watch closely for symptoms. Insomnia ( G 47.0 ). Chronic pre-existing condition present on admission. Plan to continue prescribed medication with precautions regarding level of sedation. Supervising Physician Comments Documentation By: Consulting Physician. Chief Complaint Postoperative medical care Postoperative Information Postoperative Follow Up Postoperative Follow Up: Day 1. Health Status Allergies Allergic Reactions (Selected) Severe NSAIDs- Bleeding. Unknown Penicillins- Unknown. Sulfa drugs- Unknown. Subjective Patient's pain control appears adequately controlled Review of Systems General - Denies fever Eyes - Denies vision changes Ear/Nose/Throat - Denies sore throat Cardiac - Denies chest pain Respiratory - Denies shortness of breath Gastrointestinal - Denies nausea or vomiting Genitourinary - Denies urinary retention Musculoskeletal - Denies calf pain Neurologic - Denies seizure Skin - Denies rash Objective Last Charted Vital Signs Temperature: 99 (02/27 02:54) Pulse: 71 (02/27 02:54) Respiration: 12 (02/27 02:54) BP: 143/83 (02/27 02:54) Activity: Awake (02/27 02:54) Pulse Ox: 99 (02/27 02:54) Oxygen Delivery: Nasal cannula (02/26 18:50) O2 Device Flow: 3 L/min Pain Score: 4 (02/27 04:00) General - NAD; Conversant Skin - Normal Turgor and Texture; No Rashes or Ulcerations noted Eyes - PERRLA; Anicteric Sclerae ENMT - Hearing Intact; Oropharynx Clear with Moist Mucosa Cardiology - Regular rate and rhythm, No peripheral edema noted Respiratory - Clear to auscultate bilaterally, No Accessory Muscle use noted Abdominal - Soft and Nontender, No HSM noted Musculoskeletal - Full ROM in all 4 extremities; No clubbing or Cyanosis of Digits noted Psychiatric - A and O x 3; Appropriate Affect Results Review Labs - Last 36 hours (Max 2 / lab test) CHEMISTRY Sodium 137 (02/27 03:00) Potassium 4.0 (02/27 03:00) Chloride 101 (02/27 03:00) CO2 28 (02/27 03:00) Glucose 132 (02/27 03:00) Glucose POCT No result BUN 11 (02/27 03:00) Creatinine 0.71 (02/27 03:00) Calcium Total 8.9 (02/27 03:00) Magnesium No result HEMATOLOGY WBC 11.2 (02/27 03:00) RBC 4.16 (02/27 03:00) Hb 11.4 (02/27 03:00) Hematocrit 35.2 (02/27 03:00) Platelets 225 (02/27 03:00) MCV 84.6 (02/27 03:00) MCH 27.5 (02/27 03:00) RDW 17.1 (02/27 03:00) MCHC 32.5 (02/27 03:00) Neutrophil Ab No result Monocyte Ab No result Eosinophil Ab No result Basophil Ab No result Lymphocyte Ab No result OTHER LABS Est CrCl IBW (mL/min)-RX 63.31 mL/min (02/27 03:00) BUN / Creatinine Ratio 15 (02/27 03:00) MPV 8.6 FL (02/27 03:00) Rh Type O POSITIVE (02/26 11:18) O POSITIVE (02/26 11:18) Antibody Screen NEGATIVE (02/26 11:) NEGATIVE (02/26 11:) X-rays last 36 hours No X-rays gavino (more content not included)... [facility] 02-27-2020 Mycobacterium sp Org specific cx Ql (Unsp spec) [facility] Microbiology PROCEDURE: Culture AFB and Stain SOURCE: Tissue BODY SITE: COLLECTED DATE/TIME: 02/27/2020 14:34 EDT RECEIVED DATE/TIME: 02/27/2020 14:34 EDT START DATE/TIME: 02/27/2020 14:34 EDT FREE TEXT SOURCE: TISSUE-LT KNEE D INTERFACED REPORTS Final Report [] Verified Date/Time/Personnel: 04/24/2020 19:53 EST CONTRIBUTOR_SYSTEM, CO_PN NO ACID FAST BACILLI GROWN AFTER 8 WEEKS Preliminary Report [] Verified Date/Time/Personnel: 02/28/2020 14:26 EDT CONTRIBUTOR_SYSTEM, CO_PN CULTURE IN PROGRESS CULTURE WILL BE UPDATED IF AN ACID FAST BACILLI IS ISOLATED CULTURE WILL BE HELD FOR 6-8 WEEKS. Acid Fast Smear Report [] Verified Date/Time/Personnel: 02/28/2020 14:26 EDT CONTRIBUTOR_SYSTEM, CO_PN NO ACID FAST BACILLI SEEN [facility] Comment on above: Performed By: #### 5 0941-4 ####[address] 02-27-2020 Mycobacterium sp Org specific cx Ql (Unsp spec) [facility] Microbiology PROCEDURE: Culture AFB and Stain SOURCE: Tissue BODY SITE: COLLECTED DATE/TIME: 02/27/2020 14:33 EDT RECEIVED DATE/TIME: 02/27/2020 14:33 EDT START DATE/TIME: 02/27/2020 14:33 EDT FREE TEXT SOURCE: TISSUE-LT KNEE C INTERFACED REPORTS Final Report [] Verified Date/Time/Personnel: 04/24/2020 19:53 EST CONTRIBUTOR_SYSTEM, CO_PN NO ACID FAST BACILLI GROWN AFTER 8 WEEKS Preliminary Report [] Verified Date/Time/Personnel: 02/28/2020 14:26 EDT CONTRIBUTOR_SYSTEM, CO_PN CULTURE IN PROGRESS CULTURE WILL BE UPDATED IF AN ACID FAST BACILLI IS ISOLATED CULTURE WILL BE HELD FOR 6-8 WEEKS. Acid Fast Smear Report [] Verified Date/Time/Personnel: 02/28/2020 14:26 EDT CONTRIBUTOR_SYSTEM, CO_PN NO ACID FAST BACILLI SEEN [facility] Comment on above: Performed By: #### 5 0941-4 ####[address] 02-27-2020 Mycobacterium sp Org specific cx Ql (Unsp spec) [facility] Microbiology PROCEDURE: Culture AFB and Stain SOURCE: Tissue BODY SITE: COLLECTED DATE/TIME: 02/27/2020 14:32 EDT RECEIVED DATE/TIME: 02/27/2020 14:32 EDT START DATE/TIME: 02/27/2020 14:32 EDT FREE TEXT SOURCE: TISSUE-LT KNEE B INTERFACED REPORTS Final Report [] Verified Date/Time/Personnel: 04/24/2020 19:53 EST CONTRIBUTOR_SYSTEM, CO_PN NO ACID FAST BACILLI GROWN AFTER 8 WEEKS Preliminary Report [] Verified Date/Time/Personnel: 02/28/2020 14:26 EDT CONTRIBUTOR_SYSTEM, CO_PN CULTURE IN PROGRESS CULTURE WILL BE UPDATED IF AN ACID FAST BACILLI IS ISOLATED CULTURE WILL BE HELD FOR 6-8 WEEKS. Acid Fast Smear Report [] Verified Date/Time/Personnel: 02/28/2020 14:26 EDT CONTRIBUTOR_SYSTEM, CO_PN NO ACID FAST BACILLI SEEN [facility] Comment on above: Performed By: #### 5 0941-4 ####[address] 02-27-2020 Mycobacterium sp Org specific cx Ql (Unsp spec) [facility] Microbiology PROCEDURE: Culture AFB and Stain SOURCE: Tissue BODY SITE: COLLECTED DATE/TIME: 02/27/2020 14:31 EDT RECEIVED DATE/TIME: 02/27/2020 14:31 EDT START DATE/TIME: 02/27/2020 14:31 EDT FREE TEXT SOURCE: TISSUE-LT KNEE A INTERFACED REPORTS Final Report [] Verified Date/Time/Personnel: 04/24/2020 19:53 EST CONTRIBUTOR_SYSTEM, CO_PN NO ACID FAST BACILLI GROWN AFTER 8 WEEKS Acid Fast Smear Report [] Verified Date/Time/Personnel: 02/28/2020 14:26 EDT CONTRIBUTOR_SYSTEM, CO_PN NO ACID FAST BACILLI SEEN Preliminary Report [] Verified Date/Time/Personnel: 02/28/2020 14:26 EDT CONTRIBUTOR_SYSTEM, CO_PN CULTURE IN PROGRESS CULTURE WILL BE UPDATED IF AN ACID FAST BACILLI IS ISOLATED CULTURE WILL BE HELD FOR 6-8 WEEKS. [facility] Comment on above: Performed By: #### 5 0941-4 ####[address] 02-27-2020 Bacteria identifi ed Sterile body fluid culture Nom (Unsp spec) [facility] Microbiology PROCEDURE: Culture Body Fluid + Susceptibility + Smear Direct SOURCE: Joint Fl BODY SITE: COLLECTED DATE/TIME: 02/27/2020 13:29 EDT RECEIVED DATE/TIME: 02/27/2020 13:29 EDT START DATE/TIME: 02/27/2020 13:29 EDT FREE TEXT SOURCE: JOINT FLUID-LT KNEE INTERFACED REPORTS Final Report [] Verified Date/Time/Personnel: 03/01/2020 05:24 EDT CONTRIBUTOR_SYSTEM, CO_PN NO GROWTH AFTER 72 HOURS Preliminary Report [] Verified Date/Time/Personnel: 02/29/2020 05:20 EDT CONTRIBUTOR_SYSTEM, CO_PN NO GROWTH AFTER 48 HOURS FINAL TO FOLLOW Preliminary Report [] Verified Date/Time/Personnel: 02/28/2020 05:54 EDT CONTRIBUTOR_SYSTEM, CO_PN NO GROWTH AT 12-24 HOURS Gram Stain [] Verified Date/Time/Personnel: 02/28/2020 01:00 EDT CONTRIBUTOR_SYSTEM, CO_PN RARE POLYS No Epithelials NO ORGANISMS SEEN [facility] Comment on above: Performed By: #### 6 36-1 ####[address] 02-27-2020 Mycobacterium sp Org specific cx Ql (Unsp spec) [facility] Microbiology PROCEDURE: Culture AFB and Stain SOURCE: Joint Fl BODY SITE: COLLECTED DATE/TIME: 02/27/2020 13:29 EDT RECEIVED DATE/TIME: 02/27/2020 13:29 EDT START DATE/TIME: 02/27/2020 13:29 EDT FREE TEXT SOURCE: JOINT FLUID-LT KNEE INTERFACED REPORTS Final Report [] Verified Date/Time/Personnel: 04/24/2020 19:53 EST CONTRIBUTOR_SYSTEM, CO_PN NO ACID FAST BACILLI GROWN AFTER 8 WEEKS Preliminary Report [] Verified Date/Time/Personnel: 02/28/2020 14:25 EDT CONTRIBUTOR_SYSTEM, CO_PN CULTURE IN PROGRESS CULTURE WILL BE UPDATED IF AN ACID FAST BACILLI IS ISOLATED CULTURE WILL BE HELD FOR 6-8 WEEKS. Acid Fast Smear Report [] Verified Date/Time/Personnel: 02/28/2020 14:25 EDT CONTRIBUTOR_SYSTEM, CO_PN NO ACID FAST BACILLI SEEN [facility] Comment on above: Performed By: #### 5 0941-4 ####[facility] [address], [place] 02-27-2020 Anesthesiology Preoperative evaluation and management note Patient: ALEKSANDAR GREEN MRN: ([id number] Age: 64 years Sex: Female : 1955 Associated Diagnoses: None Author: Maegan Mooney MD Preoperative Information Planned Procedure left total knee revision Histories Past Medical History: Active Anxiety GERD - Gastro-esophageal reflux disease High cholesterol Infection - infection after abdominal surgery. [facility] , Cardiovascular: Greater than or equal to 4 metabolic equivalents (METS) without symptoms Social History: Smoking Status: Never smoked How Often Do You Drink ..: Never (0) Obstructive Sleep Apnea Risk Score: Score Definitions: 1-2 Low Risk , 3-4 Intermediate Risk, 5-8 High Risk No STOPBANG Score results found Anesthesia History: No previous anesthetic complications Medications Allergies NSAIDs: Severe, Bleeding sulfa drugs: Unknown, Unknown penicillins: Unknown, Unknown Home Medications BuPROPion (buPROPion 150 mg oral tablet, extended release) 1 Tab = 150 mg By Mouth Bedtime acetaminophen (Tylenol) 1 Tab By Mouth, As Needed Pain/Discomfort acetaminophen-HYDROcodone (HYDROcodone-acetaminophen 5 mg-325 mg oral tablet (obsolete)) 1 Tab By Mouth, As Needed Pain/Discomfort cholecalciferol (Vitamin D3 2000 intl units oral capsule) 1 Cap = 2,000 Unit By Mouth once a day citalopram (citalopram 40 mg oral tablet) 0.5 Tab = 20 mg By Mouth Bedtime multivitamin 1 Tab By Mouth once a day multivitamin (Vitamin B Complex oral tablet, extended release) 1 Tab By Mouth once a day omeprazole (omeprazole 40 mg oral delayed release capsule) 1 Cap = 40 mg By Mouth Bedtime simvastatin (simvastatin 10 mg oral tablet) 1 Tab = 10 mg By Mouth Bedtime zolpidem (Ambien CR 12.5 mg oral tablet, extended release) 1 Tab = 12.5 mg By Mouth Bedtime, As Needed Insomnia/Sleep Physical Examination Mouth/Airway: Dental (from Forms) No dental information charted . Mallampati: Class 2. Dental status: Teeth in good repair. Neck: Full range of movement. Mouth: Mouth opening unrestricted. Jaw: Normal jaw. Respiratory: Right lung: Clear to auscultation. Left lung: Clear to auscultation. Cardiovascular: Rhythm: Regular. Results Review General results Laboratory Last 90 Days Other Labs 02/27/20 11:18, Rh Type = O POSITIVE 02/27/20 11:18, Antibody Screen = NEGATIVE 02/24/20 12:11, SARS-CoV-2 = NOTDET 02/24/20 12:11, First test = U 02/24/20 12:11, Employed in healthcare = U 02/24/20 12:11, Symptomatic as defined by CDC = U 02/24/20 12:11, Date of onset = U 02/24/20 12:11, Hospitalized = U 02/24/20 12:11, ICU = U 02/24/20 12:11, Resides in congregate care setting = U 02/24/20 12:11, = U Point Of Care Tests No point of care testing charted Assessment ASA Classification 2. Oral intake status Nothing after midnight. Plan Anesthesia Discussion The patient was interviewed:: Yes. The patient was examined:: Yes. Informed Consent:: Obtained. The anesthetic plan, options, risks, and benefits were discussed:: With the patient. Anesthesia Preoperative Plan Proposed Anesthesia Type: General with Endotracheal Intubation. Patient requests/comments: Blood Product Preference: Yes blood products. The following risks/potential anesthesia problems were discussed: Nausea, Vomiting, Headache, Sore throat, Dental injury, Serious complications. [facility] 02-27-2020 Provider-unspecifed, History and physical note Patient: ALEKSANDAR GREEN MRN: [id number] Age: 64 years Sex: Female : 1955 Associated Diagnoses: None Author: Rema Cid RN Chief Complaint Perioperative Medical Co-management Supervising Physician Comments Documentation By: Consulting Physician. Impression Diagnosis Osteoarthritis (QZX28-AU M19.90, Working, Medical). Plan Prophylaxis For Prevention of Deep Vein Thrombosis Will Be Per Surgeon. Management of NSAIDS, Anticoagulants, Antibiotics, and Pain Medications will also be per surgeon. Encourage venous return and ambulation exercises Home medication reconciliation completed. This patient will be considered acceptable for discharge from a medical perspective if the following criteria are met 1. Oxygen Saturations > 90% on Room Air 2. Able to void without difficulty 3. Meets Physical Therapy goals for discharge 4. Passing Flatus 5. Cleared for discharge by surgeon EKG INDEPENDENT INTERPRETATION - OLD RECORD SUMMARY Postoperative Information Postoperative Follow Up Postoperative Follow Up: Day 0. History of Present Illness 64 yr. old female s/p LTK revision per Dr. Tena who requests consult for medical management. Data obtained from pre-op H and P. History of pain at the surgical site for at least several months - severe and failed other treatments. Past Medical History Anxiety Depression Chronic pancreatitis Heart murmur Hypertension BCCA Osteopenia OA Surgical History Appy. BTK's Gastric bypass Intestinal surgery Health Status Allergies NSAIDs: Severe, Bleeding sulfa drugs: Unknown, Unknown penicillins: Unknown, Unknown Medication List (Selected) Documented Medications Documented Ambien CR 12.5 mg oral tablet, extended release: 1 Tab, PO, Bedtime, PRN: Insomnia/Sleep, Each, 0 Refill(s) HYDROcodone-acetaminophen 5 mg-325 mg oral tablet (obsolete): 1 Tab, PO, PRN: Pain/Discomfort, Each, 0 Refill(s) Tylenol: 1 Tab, PO, PRN: Pain/Discomfort, Each, 0 Refill(s) Vitamin B Complex oral tablet, extended release: 1 Tab, PO, Daily, Each, 0 Refill(s) Vitamin D3 2000 intl units oral capsule: 1 Cap, PO, Daily, Each, 0 Refill(s) buPROPion 150 mg oral tablet, extended release: 1 Tab, PO, Bedtime, Each, 0 Refill(s) citalopram 40 mg oral tablet: 0.5 Tab, PO, Bedtime, Each, 0 Refill(s) multivitamin: 1 Tab, PO, Daily, Tab, 0 Refill(s) omeprazole 40 mg oral delayed release capsule: 1 Cap, PO, Bedtime, Each, 0 Refill(s) simvastatin 10 mg oral tablet: 1 Tab, PO, Bedtime, Each, 0 Refill(s) Social History Tobacco: denies Etoh: rare Social Habits History No qualifying data available. Family History Father: CAD Mother: Cancer Physical Examination Last Charted Vital Signs No vital signs charted Results Review Labs:02/03/20 CBC: WBC 7.4 HGB 12.9 PLATELETS 271 Chemistry: Sodium 139 Potassium 3.8 Creat. 0.6 Glucose 114 EK10/21/19 CXR:02/03/20 No acute pathology. No Laboratory results charted within the last 36 hours List of X-rays performed in last 36 hours No X-rays charted within the last 36 hours [facility] Evaluation note Diagnosis Onset Date Bariatric surgery status chr onic History of bleeding ulcers c hronic Hyperlipemia chronic Hypertension [facility] Work Phone: Evaluation note* Diagnosis Onset Date Resolution Status Bariatric surgery status chr onic History of bleeding ulcers c hronic Hyperlipemia chronic Hypertension chronic Infection of prosthetic knee joint acute Bariatric surgery status chr onic History of bleeding ulcers c hronic Hypertension chronic Neck pain, chronic [facility] Work Phone: Evaluation note* Diagnosis Onset Date Resolution Status Depression acute Hypertension chronic Neck pain, chronic chronic Osteoarthritis chronic Depression acute Bariatric surgery status chr onic Hypertension [facility] Work Phone: Evaluation note* Diagnosis Onset Date Resolution Status Depression chronic GERD (gastroesophageal reflux disease) chronic Hypertension chronic Depression chronic Osteoarthritis chronic Preoperative clearance nonea ctive [facility] Work Phone: Evaluation note* Diagnosis Onset Date Resolution Status Depression chronic GERD (gastroesophageal reflux disease) chronic Hypertension chronic Depression chronic Osteoarthritis chronic Preoperative clearance nonea ctive Depression chronic GERD (gastroesophageal reflux disease) chronic Hyperlipemia chronic Hypertension [facility] Work Phone: Evaluation note* Diagnosis Onset Date Resolution Status AAA (abdominal aortic aneurysm) chronic Bariatric surgery status chr onic Depression chronic Hyperlipemia chronic Hypertension chronic Neck pain, chronic [facility] Work Phone: Evaluation note* Diagnosis Onset Date Resolution Status Bariatric surgery status chr onic Depression chronic Hyperlipemia chronic Hypertension chronic Neck pain, chronic chronic Bariatric surgery status chr onic Chronic insomnia chronic Hypertension chronic Osteopenia chronic [facility] Work Phone: Summary Purpose Family History No Family History Records Found Relationship Condition Age at Onset Recorded Date/T annamaria mother Hypertension Unknown Malignant neoplasm Unknown Hyperlipidemia Unknown father Cardiac disease Unknown Hypertension Unknown grandfather Hypertension Unknown grandmother Hypertension Unknown Advance Directives No Advanced Directives Records Found Advance Directive Response Recorded Date/ Time Advance Directives Yes August 22, 10:40am Living Will Yes August 22, 2020 10:40am Power of Certified Professional Midwife Yes August 22 10:40am Advance Directive Response Recorded Date/ Time Advance Directives Yes August 22 9:40am Living Will Yes August 22, 2020 9:40am Power of Certified Professional Midwife Yes August 22 9:40am Procedure Findings Note Patient: ALEKSANDAR GREEN MRN : ([facility])-[id number] Age: 64 years Sex: Female : 1955 Associated Diagnoses: None Author: Maegan Mooney MD Subjective Subjective: Patient participated in the evaluation: Yes. Nausea: not present. Vomiting: not present. Pain: acceptable pain control. Objective Objective: Vital Signs: Last Charted Vital Signs Temperature: 98 (02/26 18:43) Pulse: 72 (02/26 18:43) Respiration: 14 (02/26 18:43) BP: 149/89 (02/26 18:43) Pulse Ox: 98 (02/26 18:43) Oxygen Delivery: Nasal cannula (02/26 17:03) O2 Device Flow: 2 L/min Pain Score: 4 (02/26 17:30) . Mental Status: alert and oriented. Postoperative hydration: adequate. Assessment Assessment: Post anesthetic condition: no anesthetic complications. Airway patent: yes. Plan Plan: Postanesthesia Plan: post anesthetic surveillance concluded. Note Patient: ALEKSANDAR GREEN MRN : [facility])-[id number] Age: 65 years Sex: Female : 1955 Associated Diagnoses: None Author: Jaimie Fernandez MD Subjective Subjective: Patient participated in the evaluation: Yes. Nausea: not present. Vomiting: not present. Pain: acceptable pain control. Objective Objective: Vital Signs: Last Charted Vital Signs Temperature: 97.6 (09/07 10:20) Pulse: 70 (09/07 10:20) Respiration: 19 (09/07 10:20) BP: 138/78 (09/07 10:20) Pulse Ox: 95 (09/07 10:20) Oxygen Delivery: Nasal cannula (09/07 10:20) O2 Device Flow: 3 L/min Pain Score: 6 (09/07 09:20) . Mental Status: alert and oriented. Postoperative hydration: adequate. Assessment Assessment: Post anesthetic condition: no anesthetic complications. Airway patent: yes. Plan Plan: Postanesthesia Plan: will continue to follow. Chief Complaint and Reason for Visit Chief Complaint R ANKLE INSTABILITY. RX HERE 3 M FU Reason for Visit Bariatric surgery [facility] History of bleeding ulcers Hyperlipemia Hypertension Chief Complaint 3 M FU 3 M FU SCREENING Reason for Visit Bariatric surgery [facility] History of bleeding ulcers Hyperlipemia Hypertension Infection of prosthetic knee joint Bariatric surgery status History of bleeding ulcers Hypertension Neck pain, chronic Chief Complaint 3 M FU 3 M FU Reason for Visit Depression Hypertension Neck pain, chronic Osteoarthritis Depression Bariatric surgery status Hypertension Chief Complaint 3 M FU PRE OP TESTING surgery clearance PRE OP PRE OP Reason for Visit Depression GERD (gastroesophageal reflux disease) Hypertension Depression Osteoarthritis Preoperative clearance Chief Complaint 3 M FU PRE OP TESTING surgery clearance PRE OP PRE OP 6 wk fu Reason for Visit Depression GERD (gastroesophageal reflux disease) Hypertension Depression Osteoarthritis Preoperative clearance Depression GERD (gastroesophageal reflux disease) Hyperlipemia Hypertension Chief Complaint 3 M FU Reason for Visit AAA (abdominal aorti c aneurysm) Bariatric surgery status Depression Hyperlipemia Hypertension Neck pain, chronic Chief Complaint 3 M FU SCREENING Reason for Visit AAA (abdominal aorti c aneurysm) Bariatric surgery status Depression Hyperlipemia Hypertension Neck pain, chronic Chief Complaint 3 M FU 3 M FU Reason for Visit Bariatric surgery st atus Depression Hyperlipemia Hypertension Neck pain, chronic Bariatric surgery status Chronic insomnia Hypertension Osteopenia Additional Source Comments INFORMATION SOURCE (unrecogn ized section and content) DATE CREATED AUTHOR 11/01/2020 [facility] DATE CREATED AUTHOR AUTHOR'S KAYLA ATMANNY [facility] Goals (unrecognized section and content) Goals may be documented in a n alternate sectionGoals may be documented in an alternate sectionGoals may be documented in an alternate sectionGoals may be documented in an alternate sectionGoals may be documented in an alternate sectionGoals may be documented in an alternate sectionGoals may be documented in an alternate sectionGoals may be documented in an alternate sectionGoals may be documented in an alternate section Care Teams (unrecognized sec tion and content) Team Status: Active Member Role Status Dates Dr. Maurice Salinas , DO Family Provider Active Dr. Maurice Salinas , DO Primary Care Provider Active Team Status: Inactive Member Role Status Dates Dr. Maurice Salinas , DO Primary Care Pr ovider, Attending Provider, Referring Provider Active Team Status: Inactive Member Role Status Dates Dr. Maurice Salinas , DO Primary Care Provider, Referr ing Provider Active Rick Nash CASING CREW, CASING CREW-C Attending Provider Active Team Status: Active Member Role Status Dates Dr. Maurice Salinas , DO Primary Care Provider Active Dr. Angelica De La Rosa MD Attending Provider Active SON, POLITI Referring Provider Active Team Status: Active Member Role Status Dates Dr. Maurice Salinas , DO Primary Care Provider Active SON, POLITI Attending Provider, Referring Provider Ac tive Team Status: Inactive Member Role Status Dates Dr. Maurice Salinas , DO Primary Care Provider Active SON, POLITI Attending Provider, Referring Provider Ac tive Team Status: Inactive Member Role Status Dates Dr. Maurice Salinas , DO Primary Care Provider Active SON, POLITI Referring Provider Active SON, POLITI Attending Provider Active Team Status: Inactive Member Role Status Dates Dr. Maurice Salinas , DO Primary Care Provider, Attend ing Provider Active FOR RECORDS PERTAINING TO PATIENTS WHO ARE OR HAVE BEEN ENROLLED IN A CHEMICAL DEPENDENCY/SUBSTANCEABUSE PROGRAM, SOME INFORMATION MAY BE OMITTED. This clinical summary was aggregated from multiple sources. Caution should be exercised in using it in the provision of clinical care. This summary normalizes information from multiple sources, and as a consequence, information in this document may materially change the coding, format and clinical context of patient data. In addition, data may be omitted in some cases. CLINICAL DECISIONS SHOULD BE BASED ON THE PRIMARY CLINICAL RECORDS. [facility] [facility]. provides no warranty or guarantee of the accuracy or completeness of information in this document.
== END | disposition home or self-care (01) ==
LOC: BIMLAB 10:05
PROVIDERS: PCP Family Medicine; Referring Provider Family Medicine; Visit Provider Family Medicine
DX: I10 Essential (primary) hypertension (principal); Z87.11 Personal history of peptic ulcer disease
CPT/HCPCS: 36415; 80053; 80061; 85025

== ENCOUNTER → 2025-05-08 | Outpatient (CLI) | payer MEDICARE, OTHER, SELFPAY ==
--- NOTE | 2025-05-08 15:00 | BI_ITS ---
EXAM: SCRN MAMM (CAD)W/INDIGO BILAT DATE: 05/08/2025 CLINICAL HISTORY: F, Age 70 y/o , SCREENING TECHNIQUE: Procedure Code: [id number] Modality: MG Procedure: SCRN MAMM (CAD)W/INDIGO BILAT COMPARISON: Prior exam(s) were compared FINDINGS: TISSUE DENSITY: The breasts are extremely dense, which lowers the sensitivity of mammography. Bilateral Breast Mammographic Findings: No significant masses, calcifications or other abnormalities are identified. BI/SCRN MAMM (CAD)W/INDIGO BILAT IMPRESSION: No mammographic evidence of malignancy. OVERALL FINAL ASSESSMENT BI-RADS 1: NEGATIVE. RECOMMENDATION: Routine annual follow-up in 1 Year Additional Recommendation none A letter with findings and recommendations will be mailed to the patient. Reading Location: [id number]
== END | disposition home or self-care (01) ==
LOC: OPBI 14:48
PROVIDERS: PCP Family Medicine; Referring Provider Family Medicine; Visit Provider Family Medicine
DX: Z12.31 Encounter for screening mammogram for malignant neoplasm of breast (principal)
CPT/HCPCS: 77063; 77067